=== PATIENT | male | born 1945 | race Caucasian/White ===

== ENCOUNTER 2019-09-10 19:40 | Inpatient (IN) | payer OTHER ==
[~2019-09-10] VITALS: Ht 170.2 cm; Wt 162.0 kg
--- NOTE | 2019-09-10 19:45 | NUR ---
Admission Note with Justification for Admission to [facility] Patient admitted to [facility] for protective oversight for emergency stabilization of acute psychiatric crisis. Pt admitted from: SNF Mode of arrival: EMS Accompanied By: EMS Precipitating behaviors that initiated intake and admission SI/HI, paranoia, Description of failure of out patient attempts at stabilization in previous setting list behavior and medication trials: medication adjustments, greo psychiatrist consult Behaviors and assessment findings upon admission: Calm and cooperative, Denies SH/HI and denies making any threats. VSS, UAL Plan: Admit for protective oversight for adjustment and stabilization of medications, behaviors and mood. Intense treatment regimen including groups, medication adjustments, therapy, consistent regimen for ADL's, self care, and sleep hygiene. Daily monitoring by Inpatient staff, Psychiatry, and Medical Physician.
--- NOTE | 2019-09-10 21:29 | PDOC ---
Exam Note: Pramod Note: Please also refer to the separate dictated note~for this date of service dictated separately. Discussed the patient with Nursing staff reviewed the chart.~Reviewed interim history and current functioning. Reviewed vital signs,~Labs/ Radiology~and current medications noted below. Continue current treatment with the changes noted in the dictated addendum note Current Medications: I have reviewed the current psychotropics carefully including drug interactions. Risk benefit ratio favors no change other than as noted in my dictated progress note. CHETAN VARGAS MD Sep 10, 2019 21:29
[2019-09-10] MEDS ORDERED: ARIP2TAB35 PO (22:33)
[2019-09-10] MEDS ORDERED: LISI40TA PO (22:33)
[2019-09-10] MEDS ORDERED: MEMA10TA PO (22:33)
[2019-09-10] MEDS ORDERED: METF500T16 PO (22:33)
[2019-09-10] MEDS ORDERED: CARV25TA2 PO (22:33)
[2019-09-10] MEDS ORDERED: MIRT7.5T8 PO (22:33)
[2019-09-10] MEDS ORDERED: POLY2500 PO (22:33)
[2019-09-10] MEDS ORDERED: ERGO2000 PO (22:33)
[2019-09-10] MEDS ORDERED: ZINC56CR2 TP (22:33)
[2019-09-10] MEDS ORDERED: SIMV80TA17 PO (22:33)
[2019-09-10] MEDS ORDERED: NYST15PO9 TP (22:33)
[2019-09-10] MEDS ORDERED: APIX5TAB3 PO (22:33)
[2019-09-10] MEDS ORDERED: NYSTATIN TOPICAL POWDER 15GM BOTTLE. TP PRN (22:45)
[2019-09-10] MEDS ORDERED: METHYL SALICYLATE/MENTHOL TOPICAL OINTMENT 57GM TUBE. TP PRN (22:45)
[2019-09-10] MEDS ORDERED: MAG HYDROX/AL HYDROX/SIMETH 30 ML ORAL.SUSP PO PRN (22:45)
[2019-09-10] MEDS ORDERED: MAGNESIUM HYDROXIDE 2,400 MG/30 ML ORAL.SUSP. PO PRN (22:45)
[2019-09-10] MEDS ORDERED: ACETAMINOPHEN 325 MG TABLET PO PRN (22:45)
[2019-09-11 05:04] VITALS: BP 155/78
[2019-09-11 05:58] VITALS: BP 133/76
--- NOTE | 2019-09-11 06:19 | EKG ---
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
[2019-09-11 07:14] LABS: BASO % 1 % (0-3); EOS # 0.1 x10^3/uL (0.0-0.7); EOS % 1 % (0-3); HEMATOCRIT 39.7 % (39.0-53.0); HEMOGLOBIN 12.8 g/dL (13.0-17.5); LYMPH # 1.1 x10^3/uL (1.0-4.8); LYMPH % 24 % (24-48); MEAN CORPUSCULAR HEMOGLOBIN 28 pg (25-35); MEAN CORPUSCULAR HGB CONC 32 g/dL (31-37); MEAN CORPUSCULAR VOLUME 88 fL (79-100); MONO # 0.4 x10^3/uL (0.0-1.1); MONO % 10 % (0-9); NEUT # 2.9 x10^3uL (1.8-7.7); NEUT % 64 % (31-73); PLATELET COUNT 132 x10^3/uL (140-400); RED BLOOD COUNT 4.53 x10^6/uL (4.30-5.70); RED CELL DISTRIBUTION WIDTH 15.4 % (11.5-14.5); WHITE BLOOD COUNT 4.5 x10^3/uL (4.0-11.0)
--- NOTE | 2019-09-11 07:30 | NUR ---
Patient has a aquafoam on his right forearm that is covering a skin tear. Patient removed bandage to show nurse, he called it his "scrape". Nurse put new dressing on skin tear. Skin tear was present on arrival from [facility].
[2019-09-11 07:32] LABS: ALBUMIN 3.5 g/dL (3.4-5.0); ALBUMIN/GLOBULIN RATIO 1.1 (1.0-1.7); CALCIUM 8.9 mg/dL (8.5-10.1); CREATININE 0.8 mg/dL (0.7-1.3); GFR 94.8; MAGNESIUM 1.8 mg/dL (1.8-2.4); POTASSIUM 3.9 mmol/L (3.5-5.1); TOTAL BILIRUBIN 0.4 mg/dL (0.2-1.0); TOTAL PROTEIN 6.6 g/dL (6.4-8.2)
[2019-09-11] MEDS ORDERED: POLYETHYLENE GLYCOL 3350 17 GM PACKET. PO PRN (09:00)
[2019-09-11] MEDS: CARVEDILOL 12.5 MG TABLET PO SCH ×2 (09:30→17:18)
[2019-09-11] MEDS: APIXABAN 5 MG TABLET. PO SCH ×2 (09:31→20:19)
[2019-09-11] MEDS: MEMANTINE 5 MG TABLET. PO SCH (09:31)
[2019-09-11] MEDS: LISINOPRIL 20 MG TABLET PO SCH (09:31)
[2019-09-11] MEDS: metFORMIN 500 MG TABLET PO SCH ×2 (09:31→17:18)
--- NOTE | 2019-09-11 09:43 | NUR ---
Juan M is a [place] fee for service. [place] authorization numbers are [id number] and [id number]. Updates are to be provided to Angle or Leidy at the [facility] on Mondays, Wednesdays, and Fridays.
--- NOTE | 2019-09-11 10:00 | NUR ---
Patient is medication compliant, he takes them whole with water. Patient was in day room participating in an activity group that MANGO Garzon was running. After the group this nurse had conversation with patient. He initially comes across more organized and coherent then he is. In further conversation he stated he had come from [place] and didn't seem to remember being at the [facility] in [place]. At this time patient oriented to name, and year. He is also aware that he is in a hospital but not where or why. He denied SI/HI when asked. He has been calm and cooperative this morning.
[2019-09-11] MEDS: ZINC OXIDE/COD LIVER OIL 40% TOPICAL OINTMENT 56GM TUBE. TP SCH ×2 (10:39→21:00)
--- NOTE | 2019-09-11 11:53 | NUR ---
Patient asked for his shoes, which had laces. When staff told patient he could not have the shoes because the laces could be a strangulation hazard he got upset. Staff offered to remove the laces and let him have his shoes but he did not want that. He wanted to know how everyone knew "what he was here for". Staff explained that we need to know each patients diagnosis and behavioral history to keep them safe. Patient is here for SI/HI. He then yelled "none of you can prove that, my family would never say that about me!" He was redirected to his room to calm down. Dr. Loi gregorio and order was received for MICHEAL goldstein. Patient was later heard on the telephone saying things like I love you so much, I miss you, I need you, etc. SUPPLY CHAIN VICE PRESIDENT asked him who he was talking to and he said it was his ex-. Patient then asked ex- to visit him, staff advised him she would need the passcode. He then stated "Well that won't happen, my daughter is the DPOA and she hates me". Patient had called his ex- and she does not know the code at this time. Patient was then observed appearing sad and crying in the hallway.
[2019-09-11] MEDS ORDERED: ARIPiprazole 2 MG TABLET PO SCH (12:00)
--- NOTE | 2019-09-11 12:30 | NUR ---
Patient given PRN zyprexa for agitation with his lunch medication. He asked nurse what medication was for, nurse told him it was a mood stabilizer that would help with his anxiety/depression. He took medications willingly, whole with water. Patient, nurse and table mate had conversation about patients profession prior to longterm. He is better with remote memory than current events.
--- NOTE | 2019-09-11 12:50 | NUR ---
PSYCHOSOCIAL ASSESSMENT ADMISSION DATE: 09/10/19 CONTACT INFORMATION: DPOA/Guardian Contact Name: GILLES Dunn Contact Address: [place] Contact Phone #: [phone] (H) or [phone] (W) ETHNIC ORIGIN: REASONS FOR ADMISSION: Homicidal Ideation, Suicidal ideation, and Suspicious/paranoid ADDITIONAL ADMISSION COMMENTS: Per pt. intake, pt. was SI/HI, jump off building, gun, or use his belt, wants to kill himself and daughter, paranoid people are stealing his stuff, and thinks pool is a game of life or . REASON FOR ADMISSION IN PATIENT/FAMILY'S OWN WORDS: Per pt., "My daughter made a complaint that I was unable to care for myself." "Which is untrue." "That is why I ended up here." Per pt. daughter, "They told me he was suicidal" and stating "ways he could do it". "He was going to use his belt, and they couldn't take it away from him." PATIENT/FAMILY EXPECTATIONS FOR ADMISSION: Per pt., "I hope I can get out." "I hope I can please people..." Pt. began to speak about wanting a room where he can stay and have the freedom to come and go when he wanted to. "I've already upset people." "They say I threatened to kill people." Pt. daughter stated, "I hope, maybe, he can get stabilized and be able to return to that place." She also hopes he will be "less paranoid" and "less depressed". LIVING SITUATION: Memory Care Contact Name: [facility] Contact Address: [place], [place] Contact Phone #: Contact Fax #: FAMILY RELATIONS: Marital Status: # of Marriages: 1 Pt. stated he has been for "three years" but his ex-, "Stephy", still visits him. He also stated "I'm two years past being able to have an erection, but we still climb into bed together." Pt. daughter clarified pt. has been for about "20 years", and she believes pt. ex- might call pt. but does not believe she visits. She also stated pt. ex- "may be causing him" to be "paranoid." # of Children: 2 Pt. has a daughter, Nicole, and a son, Jonathan. Pt. has two grandchildren. [facility] Family Support: Concerned and Cooperative Additional Comments r/t Family: Pt. daughter, Nicole, would like to be contacted for treatment team. SIGNIFICANT PSYCHIATRIC/MEDICAL HISTORY: Psychiatric/Treatment History: Per pt., "I've got a problem, but I can't think of it." Pt. stated, "Not that I can remember" when asked about previous psychiatric treatment. Pt. daughter did not know of any diagnoses but stated "maybe depression." She also shared pt. has not had any previous psychiatric treatment. Per pt. intake, pt. has Alzheimer's, Dementia, Adjustment Disorder R/t transitioning to memory unit, anxiety, and depression. [facility], "No [facility] diagnosis." Pertinent Family History: Per pt., "Not that I know of." Per pt. daughter, "No, his family is pretty stable." HISTORICAL DATA: Childhood Environment: "It was great." "I built a tree house and soap box derby." Pt. grew up with his mother, father, and one older brother, Edgardo, who has . Psychological Abuse: None Drug Abuse History last 12 months: No Comment: Pt. stated he smoked "marijuana" occasionally when he was younger and "drank for recreation" while in the . 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 service: Y 2 years, 7 months, and 21 days Religion background: "I'm not overly zoroastrian." "I believe in God." "I went to denominational every week as a child." "[employer] of [employer]" Sexual orientation: Heterosexual Educational Level: Pt. graduated from high school and went on to get a "Masters of Science in [employer] from [employer]." Pt. also shared the university sent him to training where he "learned how to fly." Past/Present Interests/Hobbies: "I like to build things and work on things." "I use to play golf." Pt. daughter shared pt. enjoyed golfing when he was "younger". Financial support/resources: Social Security Pt. also has money from a house he sold. Monthly income: $1700 from Social Security Person handling finances: Nicole DuboiskallilamontKaliaMarvin Do you have a history of legal problems: N Cultural considerations: No SOCIAL RELATIONSHIPS-CURRENT/PAST: Psychiatrist: Dr. Philippe PCP: Dr. Katz Counselor/Therapist: None [facility]: Current Support Group: None Decorator Consultant/Internal Security Manager: None Other relationships: None STRENGTHS & WEAKNESSES: Patient's strengths: Good verbal skills and Approachable Patient's weaknesses: Paranoid and SI/HI PRELIMINARY PLAN OF TREATMENT: Preliminary plan: Promote Coping Skill, No Suicidal/Homicidal Ideation, Medication Stabilization, and Monitor Med Effects DISCHARGE PLANNING: Discharge planning/disposition: Current Living Arrangement ADDITIONAL INFORMATION: Pt. was able to supply the majority of the information required for this assessment. Pt. daughter, Nicole, was contacted for verification and clarification of the information. Pt. stated, "They say I've threatened suicide." "I don't want to commit suicide." When asked if there was anythign else we need to know pt. daughter states, "He likes "chocolate" and "Diet Coke".
[2019-09-11 14:54] LABS: THYROID STIM HORMONE (TSH) 4.702 uIU/mL (0.358-3.740)
[2019-09-11 15:59] VITALS: BP 144/80
[2019-09-11 18:06] LABS: THYROXINE 5.2 ug/dL (4.5-12.0)
[2019-09-11] MEDS: ATORVASTATIN CALCIUM 20 MG TABLET PO SCH (20:19)
[2019-09-11] MEDS: MIRTAZAPINE 7.5 MG TABLET. PO SCH (20:19)
--- NOTE | 2019-09-11 21:24 | PDOC ---
Exam Note: Pramod Note: Please also refer to the separate dictated note~for this date of service dictated separately.~Patient seen individually. Discussed the patient with Nursing staff reviewed the chart.~Reviewed interim history and current functioning. Reviewed vital signs,~Labs/ Radiology~and current medications noted below. Continue current treatment with the changes noted in the dictated addendum note Assessment: Vital Signs/I&O: Vital Signs Date Time Temp Pulse Resp B/P (MAP) Pulse Ox O2 Delivery O2 Flow Rate FiO2 09/11/19 17:18 66 144/80 09/11/19 15:59 98.1 16 97 I & O 09/10/19 09/10/19 09/11/19 15:00 23:00 07:00 Intake Total 120 ml Balance 120 ml Labs: Laboratory Tests Test 09/11/19 06:34 09/11/19 08:05 09/11/19 19:13 White Blood Count 4.5 x10^3/uL (4.0-11.0) Red Blood Count 4.53 x10^6/uL (4.30-5.70) Hemoglobin 12.8 g/dL (13.0-17.5) L Hematocrit 39.7 % (39.0-53.0) Mean Corpuscular Volume 88 fL (79-100) Mean Corpuscular Hemoglobin 28 pg (25-35) Mean Corpuscular Hemoglobin Concent 32 g/dL (31-37) Red Cell Distribution Width 15.4 % (11.5-14.5) H Platelet Count 132 x10^3/uL (140-400) L Neutrophils (%) (Auto) 64 % (31-73) Lymphocytes (%) (Auto) 24 % (24-48) Monocytes (%) (Auto) 10 % (0-9) H Eosinophils (%) (Auto) 1 % (0-3) Basophils (%) (Auto) 1 % (0-3) Neutrophils # (Auto) 2.9 x10^3uL (1.8-7.7) Lymphocytes # (Auto) 1.1 x10^3/uL (1.0-4.8) Monocytes # (Auto) 0.4 x10^3/uL (0.0-1.1) Eosinophils # (Auto) 0.1 x10^3/uL (0.0-0.7) Basophils # (Auto) 0.0 x10^3/uL (0.0-0.2) Sodium Level 145 mmol/L (136-145) Potassium Level 3.9 mmol/L (3.5-5.1) Chloride Level 108 mmol/L (98-107) H Carbon Dioxide Level 29 mmol/L (21-32) Anion Gap 8 (6-14) Blood Urea Nitrogen 14 mg/dL (8-26) Creatinine 0.8 mg/dL (0.7-1.3) Estimated GFR (Cockcroft-Gault) 94.8 BUN/Creatinine Ratio 18 (6-20) Glucose Level 101 mg/dL (70-99) H Calcium Level 8.9 mg/dL (8.5-10.1) Magnesium Level 1.8 mg/dL (1.8-2.4) Iron Level 53 ug/dL (65-175) L Total Iron Binding Capacity 345 ug/dL (250-450) Iron Saturation 15 % (15-34) Total Bilirubin 0.4 mg/dL (0.2-1.0) Aspartate Amino Transferase (AST) 15 U/L (15-37) Alanine Aminotransferase (ALT) 19 U/L (16-63) Alkaline Phosphatase 99 U/L (46-116) Total Protein 6.6 g/dL (6.4-8.2) Albumin 3.5 g/dL (3.4-5.0) Albumin/Globulin Ratio 1.1 (1.0-1.7) Triglycerides Level 63 mg/dL (0-150) Cholesterol Level 102 mg/dL (0-200) LDL Cholesterol, Calculated 50 mg/dL (0-100) VLDL Cholesterol, Calculated 12 mg/dL (0-40) Non-HDL Cholesterol Calculated 62 mg/dL (0-129) HDL Cholesterol 40 mg/dL (40-60) Cholesterol/HDL Ratio 2.0 Vitamin B12 Level 416 pg/mL (247-911) 25-Hydroxy Vitamin D Total 74.4 ng/mL (30-100) Thyroid Stimulating Hormone (TSH) 4.702 uIU/mL (0.358-3.740) Thyroxine (T4) 5.2 ug/dL (4.5-12.0) Total Triiodothyronine (TT3) 93 ng/dL (71-180) Treponema pallidum Antibody Nonreactive (Nonreactive) Glucose (Fingerstick) 128 mg/dL (70-99) H 122 mg/dL (70-99) H Current Medications: Meds: Current Medications Medications (Trade) Dose Ordered Sig/Fatemeh Route PRN Reason Start Time Stop Time Status Last Admin Dose Admin Apixaban (Eliquis) 5 mg BID PO 09/11/19 09:00 09/11/19 20:19 Aripiprazole (Abilify) 1 mg NOON PO 09/11/19 12:00 09/11/19 12:35 Memantine (Namenda) 5 mg DAILY PO 09/11/19 09:00 09/11/19 09:31 Metformin HCl (Glucophage) 500 mg BIDWMEALS PO 09/11/19 08:00 09/11/19 17:18 Mirtazapine (Remeron) 7.5 mg HS PO 09/11/19 21:00 09/11/19 20:19 Carvedilol (Coreg) 12.5 mg BIDWMEALS PO 09/11/19 08:00 09/11/19 17:18 Lisinopril (Prinivil) 40 mg DAILY PO 09/11/19 09:00 09/11/19 09:31 Atorvastatin Calcium (Lipitor) 40 mg QHS PO 09/11/19 21:00 09/11/19 20:19 Olanzapine (ZyPREXA ZYDIS) 5 mg PRN Q2HR PRN PO agitation/psychosis 09/11/19 12:15 09/11/19 12:35 I have reviewed the current psychotropics carefully including drug interactions. Risk benefit ratio favors no change other than as noted in my dictated progress note. Diagnosis: Problems: (1) Anxiety disorder (2) Dementia, vascular, with delusions (3) Dementia, vascular, with depression (4) Dementia in Alzheimer's disease with delusions (5) Dementia in Alzheimer's disease with depression (6) Impulse control disorder CHETAN VARGAS MD Sep 11, 2019 21:24
--- NOTE | 2019-09-11 22:49 | NUR ---
This evening pt was in day room or his room he has been quiet and cooperative. He took HS meds whole without difficulty after a brief discussion. 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 Otherwise he was oriented. He denies SI/HI saying he was misunderstood. No behaviors tonight.
[2019-09-12 01:07] LABS: HEMOGLOBIN A1C 7.1 % (4.8-5.6)
--- NOTE | 2019-09-12 03:44 | CONS ---
DATE OF CONSULTATION: 09/11/2019 REASON FOR CONSULTATION: Medical management. HISTORY OF PRESENT ILLNESS: The patient is a 74-year-old male patient who was referred to this facility from the [facility] in [place] on account of suicidal and homicidal ideation, wants to jump off a building, use a gun or a ____ wants to kill his daughter because he is mad at her about placing him. He is paranoid, thinks people are stealing his stuff, thinks that ____ game, all this in a background of major neurocognitive disorder, Alzheimer, vascular with depression. Medically, he has multiple medical problems including hyperlipidemia, type 2 diabetes with diabetic retinopathy, atrial fibrillation, anemia, vitamin D deficiency, hypertension. 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 PAST SURGICAL HISTORY: Significant for tonsillectomy. ALLERGIES: He has no known drug allergies. MEDICATIONS: He is currently on following medications: He is on apixaban 5 mg twice a day, simvastatin 80 mg at bedtime, carvedilol 12.5 mg twice a day, lisinopril 40 mg daily, mirtazapine 7.5 mg at bedtime, aripiprazole for Abilify 1 mg at noon, Namenda 5 mg daily, metformin 500 mg twice a day with meals, nystatin powder applied topically twice a day, zinc oxide for desiccant 1 application topically twice a day, vitamin D2 50,000 units once a week on Fridays, polyethylene glycol 17 grams daily p.r.n. for constipation. FAMILY HISTORY: Noncontributory. SOCIAL HISTORY: He lives at [facility]. He has a son and daughter. He never smoked, but used to drink alcohol heavily. PHYSICAL EXAMINATION: GENERAL: When I saw him this afternoon, he was sitting comfortably in his chair, in no apparent respiratory distress, slightly pale, but no jaundice, cyanosis, no lymphadenopathy or thyromegaly. No jugular venous distention. No lower limb edema. VITAL SIGNS: His heart rate was 59, blood pressure was 133/76, temperature 98, respiratory rate was 18 and oxygen saturation was 99% on room air. HEAD, EYES, EARS, NOSE AND THROAT: Showed normocephalic, atraumatic. NECK: Supple. CARDIAC: Normal first and second heart sounds. No gallop, rub or murmur. CHEST: Clear to auscultation. No crepitation or rhonchi. ABDOMEN: Distended, soft, nontender. NEUROLOGIC: He seemed to be grossly intact. He ambulates without assistance or assistive devices. LABORATORY DATA: Showed a white cell count 4500, hemoglobin 13, hematocrit 39, MCV 88 and platelet count of 132,000. His chemistry showed a serum sodium 145, potassium 3.9, chloride 108, bicarbonate 29, anion gap of 8, BUN 14, creatinine 0.8, estimated GFR was 95 mL per minute. His glucose 101, calcium was 8.9, magnesium was 1.8. Serum iron 53, TIBC was 345 and iron saturation was 15%. His total bilirubin, AST, ALT, alkaline phosphatase were normal. Total protein 6.6, albumin 3.5. Serum triglycerides were 63, total cholesterol 102, LDL cholesterol was 50, VLDL was 12, HDL was 40 and the ratio was 2. TSH was slightly elevated at 4.702. IMPRESSION: In summary, this is a 74-year-old male patient who was admitted to this facility on account of suicidal and homicidal ideation, wants to jump off a building, use a gun or a ____, wants to kill his daughter because he is mad at her about placing him, he is paranoid, thinks people are stealing his stuff, thinks that ____ life or game, all this in a background of major neurocognitive disorder, Alzheimer, vascular, depression. Medically, he has multitude of medical problems including diabetes mellitus with diabetic retinopathy, hyperlipidemia, atrial fibrillation, hypertension, vitamin D deficiency; however, all in all, the patient seems to be medically stable. His vital signs are within normal limits. His lab works are also within normal limits. I will follow all his lab works that are still pending at the time of this dictation and make any necessary recommendation. Thank you, Dr. Monsivais for allowing me to participate in the care of this patient. LUCERO ISSA MD DR: JASSI/renetta JOB#: [id number] / [id number]
[2019-09-12] MEDS: LISINOPRIL 20 MG TABLET PO SCH (05:17)
--- NOTE | 2019-09-12 05:21 | NUR ---
AM BP was approx 170/100 0900 Lisinopril dose given. Pt up and active in room, sarcastic towards staff. Addendum: 09/12/19 at 1557 by ALINA LAZAR RN Spoke with Dr. Lester about patients morning high blood pressure reading. Dr. Lester does not wish to adjust medications at this time. We will continue to monitor the blood pressures and notify him if they trend up or continue to be high in the mornings.
[2019-09-12 06:11] VITALS: BP 170/124
--- NOTE | 2019-09-12 08:54 | TX PLAN ---
Interdisciplinary Tx Plan Admission Information Sep 10, 2019 at 19:40 Legal Status (on Admission): Voluntary, DPOA DPOA/Guardian Name: Nicole GILLES Pro Contact (H) or [phone] (W) Other Contact Name: [facility] Verified Code Status: Full Code Allergies: Coded Allergies: No Known Drug Allergies (Unverified , 09/10/19) Estimated Length of Stay: 10 Diagnoses Primary Diagnosis: Major Neurocognitive Disorder Vascular Alzheimers with Depression Reasons for Admission: Suicidal ideation, Homicidal Ideation, Suspicious/paranoid, Confusion/Disoriented Problem in Patient's Words: Per pt., "My daughter made a complaint that I was unable to care for myself." "Which is untrue." "That is why I ended up here." Per pt. daughter, "They told me he was suicidal" and stating "ways he could do it". "He was going to use his belt, and they couldn't take it away from him." Problems Active Problems: Per pt. intake, pt. was SI/HI, jump off building, gun, or use his belt, wants to kill himself and daughter, paranoid people are stealing his stuff, and thinks pool is a game of life or . Inactive Problems: Pt. is medication complaint and cooperative with cares. Pt Strengths/Limitations Ability for [place]: Poor Cognitive Functioning/Ability: Fair Communication Skills/Ability: Fair Financial Resources: Fair Insight/Judgement: Poor Intellectual Ability: Fair Physical Health: Fair Social Skills: Fair Stability in Family: Fair Verbal Skills: Good Discharge Criteria Discharge Criteria: No need for close observ., Adequate arrangements @DC, Improved behavior, Improved mood/thought Preliminary Discharge Plan Preliminary DC Plan: Current Living Arrange. Special Precautions Special Precautions: Suicide Risk Fall Risk: Low Initial D/C Plan Pt. will return to the [facility] at the [facility]. Identified Discharge Needs: Pt. will need follow up with Psychiatrist and PCP. Safety Plan Currently Utilized Resources Currently Utilized Resources/P: ID [facility] Dr. Philippe - Psychiatrist Dr. Katz - PCP Identified Problems/Hx/Goals Objectives/Short-Term Goals Short Term Goals: Medication Stabilization, Monitor Med Effects, No Suicidal/Viraj. ideation, Promote Coping Skill Short Term Goals in Patient's: Per pt., "I hope I can get out." "I hope I can please people..." Pt. began to speak about wanting a room where he can stay and have the freedom to come and go when he wanted to. 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 Education: Pt. graduated from high school and went on to get a "Masters of Science in Industrial Technology from [employer]." Pt. also shared the university sent him to training where he "learned how to fly." Community Follow-up Follow up with PCP and Psychiatrist Community Provider/Family Inpu: Pt. daughter stated, "I hope, maybe, he can get stabilized and be able to return to that place." She also hopes he will be "less paranoid" and "less depressed". Treatment Plan Explained Patient/Presales Senior Specialist had this treatment plan explained to him/her as indicated by the signature below and has been given the opportunity to ask questions and make suggestions: Date: Patient/Presales Senior Specialist Signature: Patient/Presales Senior Specialist Decline: No Additional Comments Pt. daughter, Nicole, would like to be contacted for treatment team. OSCAR KEITH Sep 12, 2019 08:54
[2019-09-12] MEDS: metFORMIN 500 MG TABLET PO SCH ×2 (09:25→17:43)
[2019-09-12] MEDS: APIXABAN 5 MG TABLET. PO SCH ×2 (09:25→21:15)
[2019-09-12] MEDS: CARVEDILOL 12.5 MG TABLET PO SCH ×2 (09:25→17:43)
[2019-09-12] MEDS: MEMANTINE 5 MG TABLET. PO SCH ×2 (09:26→21:15)
[2019-09-12] MEDS: ZINC OXIDE/COD LIVER OIL 40% TOPICAL OINTMENT 56GM TUBE. TP SCH ×2 (09:26→21:15)
--- NOTE | 2019-09-12 11:06 | NUR ---
BETHEL contacted pt. daughter, Nicole, for treatment team. BETHEL contacted Angle, Nurse at the [facility], to give her an update on pt. progress. No discharge date has been set at this time.
--- NOTE | 2019-09-12 12:11 | NUR ---
Patient has been joking and cooperative with staff. He is medication compliant. Patient denies SI when asked, stating that was just a joke. Patient has been withdrawn to his room most of the day.
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
--- NOTE | 2019-09-12 15:53 | NUR ---
Patient is less withdrawn and was in day room during a group this afternoon. He has been talking to some peers, and was overheard saying that he has "been here for 3 months" to one of his peers this afternoon. He remains calm and cooperative at this time.
[2019-09-12 16:25] VITALS: BP 156/85
[2019-09-12] MEDS: MIRTAZAPINE 7.5 MG TABLET. PO SCH (21:15)
[2019-09-12] MEDS: ATORVASTATIN CALCIUM 20 MG TABLET PO SCH (21:15)
[2019-09-12] MEDS: QUEtiapine 25 MG TABLET. PO SCH (21:15)
--- NOTE | 2019-09-12 21:22 | PDOC ---
Exam Note: Pramod Note: Please also refer to the separate dictated note~for this date of service dictated separately.~Patient seen individually. Discussed the patient with Nursing staff reviewed the chart.~Reviewed interim history and current functioning. Reviewed vital signs,~Labs/ Radiology~and current medications noted below. Continue current treatment with the changes noted in the dictated addendum note Assessment: Vital Signs/I&O: Vital Signs Date Time Temp Pulse Resp B/P (MAP) Pulse Ox O2 Delivery O2 Flow Rate FiO2 09/12/19 17:43 60 156/85 09/12/19 16:25 98.1 16 96 09/12/19 06:11 Room Air I & O 09/11/19 09/11/19 09/12/19 15:00 23:00 07:00 Intake Total 360 ml 480 ml Balance 360 ml 480 ml Labs: Laboratory Tests Test 09/12/19 07:50 09/12/19 11:39 09/12/19 19:20 Glucose (Fingerstick) 105 mg/dL (70-99) H 188 mg/dL (70-99) H 181 mg/dL (70-99) H Current Medications: Meds: Current Medications Medications (Trade) Dose Ordered Sig/Fatemeh Route PRN Reason Start Time Stop Time Status Last Admin Dose Admin Memantine (Namenda) 5 mg BID PO 09/12/19 21:00 09/12/19 21:15 Quetiapine Fumarate (SEROquel) 25 mg QHS PO 09/12/19 21:00 09/12/19 21:15 I have reviewed the current psychotropics carefully including drug interactions. Risk benefit ratio favors no change other than as noted in my dictated progress note. Diagnosis: Problems: (1) Anxiety disorder (2) Dementia, vascular, with delusions (3) Dementia, vascular, with depression (4) Dementia in Alzheimer's disease with delusions (5) Dementia in Alzheimer's disease with depression (6) Impulse control disorder (7) Major neurocognitive disorder CHETAN VARGAS MD Sep 12, 2019 21:22
--- NOTE | 2019-09-12 23:59 | NUR ---
Nursing Note The patient was located in the day room for his assessment and medication pass. The patient was pleasant during interactions with this nurse. The patient took his medications whole. The patient did display some short term memory issues. The patient repetitively asked about his belongings even after this nurse informed him that they were either in his locker or in the safe. The patient is currently sleeping in his room.
[2019-09-13 06:59] VITALS: BP 150/73
[2019-09-13] MEDS: CARVEDILOL 12.5 MG TABLET PO SCH ×2 (08:36→17:30)
[2019-09-13] MEDS: APIXABAN 5 MG TABLET. PO SCH ×2 (08:36→21:11)
[2019-09-13] MEDS: metFORMIN 500 MG TABLET PO SCH ×2 (08:36→17:29)
[2019-09-13] MEDS: SERTRALINE 25 MG TABLET. PO SCH (08:36)
[2019-09-13] MEDS: MEMANTINE 5 MG TABLET. PO SCH ×2 (08:37→21:10)
[2019-09-13] MEDS: LISINOPRIL 20 MG TABLET PO SCH (08:37)
[2019-09-13] MEDS: ZINC OXIDE/COD LIVER OIL 40% TOPICAL OINTMENT 56GM TUBE. TP SCH ×2 (08:38→21:11)
[2019-09-13] MEDS ORDERED: CHOLECALCIFEROL (VITAMIN D3) 50,000 UNIT CAPSULE PO SCH (09:00)
--- NOTE | 2019-09-13 10:30 | NUR ---
Pt located in the dining room for medication administration. Pt calm, pleasant and cooperative. A/O to name, . When asked where he was, pt stated "in senior care" and laughed. Compliant with whole medications. Pt participated in morning group.
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
[2019-09-13 15:41] VITALS: BP 134/82
--- NOTE | 2019-09-13 20:05 | PN ---
DATE: 09/12/2019 PSYCHIATRIC PROGRESS NOTE This late entry September 11, covers elements not covered in my initial note. SUBJECTIVE: I met with the patient at length in the evening and staffed at a treatment team meeting with the entire team in the morning and the patient's daughter Nicole attended this lengthy conference. We reviewed the patient's history, diagnosis, progress. The patient is sleeping average six and a half hours. Appetite 75%. Daughter described how his memory has been slowly slipping for the last several years. He has been upset that he has been at the facility blames his daughter for this. Crying on the telephone with his ex-, remains depressed, feels daughter hates him, did attend 2 groups per Adeyoh. 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 REVIEW OF SYSTEMS: No CV, , pulmonary, eye system symptoms on review. MENTAL STATUS EXAM: Oriented to himself and situation. Speech has some latency, coherent. Abstraction fair, computation impaired, language function intact, attention span short. Short term memory is impaired. No suicidal or homicidal ideation. LABORATORY DATA: Reviewed. IMPRESSION: Major depressive disorder major neurocognitive disorder, early Alzheimer, vascular with depression, impulse control disorder, and anxiety disorder, unspecified. PLAN: Change Abilify 1 mg a day to Seroquel 25 mg at bedtime to help with his mood, anxiety symptoms. Increase Namenda from 5 mg daily to 5 mg twice a day. Start Zoloft 25 mg a day for 3 days, then 50 mg a day for mood, anxiety symptoms. Continue Remeron 7.5 mg at bedtime, Zyprexa p.r.n. Rest will adjust gradually depending on his progress. MAN Winston VARGAS MD DR: ROSALIND/renetta JOB#: [id number] / [id number]
[2019-09-13] MEDS: QUEtiapine 25 MG TABLET. PO SCH (21:10)
[2019-09-13] MEDS: MIRTAZAPINE 7.5 MG TABLET. PO SCH (21:10)
[2019-09-13] MEDS: ATORVASTATIN CALCIUM 20 MG TABLET PO SCH (21:11)
--- NOTE | 2019-09-13 21:24 | PDOC ---
Exam Note: Pramod Note: Please also refer to the separate dictated note~for this date of service dictated separately.~Patient seen individually. Discussed the patient with Nursing staff reviewed the chart.~Reviewed interim history and current functioning. Reviewed vital signs,~Labs/ Radiology~and current medications noted below. Continue current treatment with the changes noted in the dictated addendum note Assessment: Vital Signs/I&O: Vital Signs Date Time Temp Pulse Resp B/P (MAP) Pulse Ox O2 Delivery O2 Flow Rate FiO2 09/13/19 17:30 64 134/82 09/13/19 15:41 97.5 18 96 09/12/19 06:11 Room Air I & O 09/12/19 09/12/19 09/13/19 15:00 23:00 07:00 Intake Total 480 ml 240 ml 240 ml Balance 480 ml 240 ml 240 ml Labs: Laboratory Tests Test 09/13/19 07:23 09/13/19 11:10 Glucose (Fingerstick) 108 mg/dL (70-99) H 114 mg/dL (70-99) H Current Medications: Meds: Current Medications Medications (Trade) Dose Ordered Sig/Fatemeh Route PRN Reason Start Time Stop Time Status Last Admin Dose Admin Vitamin D (Vitamin D3) 50,000 unit WEEKLY PO 09/13/19 09:00 09/13/19 08:37 Sertraline HCl (Zoloft) 25 mg DAILY PO 09/13/19 09:00 09/15/19 11:00 09/13/19 08:36 Zinc Oxide (Desitin Diaper Rash 40%) 1 layne BID TP 09/13/19 15:34 09/13/19 21:11 I have reviewed the current psychotropics carefully including drug interactions. Risk benefit ratio favors no change other than as noted in my dictated progress note. Diagnosis: Problems: (1) Major neurocognitive disorder (2) Anxiety disorder (3) Dementia, vascular, with delusions (4) Dementia, vascular, with depression (5) Dementia in Alzheimer's disease with delusions (6) Dementia in Alzheimer's disease with depression (7) Impulse control disorder CHETAN VARGAS MD Sep 13, 2019 21:24
--- NOTE | 2019-09-14 00:26 | NUR ---
Nursing Note The patient was located in his room for his assessment and medication pass. The patient was compliant and appropriate during his assessment and medication pass. The patient took his medication whole. The patient later in the night became agitated and irritable. The patient is currently awake in his room.
[2019-09-14 06:35] VITALS: BP 129/54
[2019-09-14] MEDS: APIXABAN 5 MG TABLET. PO SCH ×2 (08:24→20:00)
[2019-09-14] MEDS: SERTRALINE 25 MG TABLET. PO SCH (08:24)
[2019-09-14] MEDS: MEMANTINE 5 MG TABLET. PO SCH ×2 (08:24→20:00)
[2019-09-14] MEDS: metFORMIN 500 MG TABLET PO SCH ×2 (08:24→17:13)
[2019-09-14 08:26] VITALS: BP 148/80
[2019-09-14] MEDS: CARVEDILOL 12.5 MG TABLET PO SCH ×2 (08:27→17:13)
[2019-09-14] MEDS: LISINOPRIL 20 MG TABLET PO SCH (08:27)
[2019-09-14] MEDS: ZINC OXIDE/COD LIVER OIL 40% TOPICAL OINTMENT 56GM TUBE. TP SCH ×2 (09:00→21:00)
--- NOTE | 2019-09-14 10:47 | NUR ---
Pt is calm, cooperative, and compliant. He denies SI/HI. Pt believes the date is Jul 2021. He verbally contracted for safety. He is compliant with is medication and assessment.
--- NOTE | 2019-09-14 13:32 | NUR ---
Pt is wandering the unit, asking to get in his closet, asking about his facility and appears confused as he cannot recall brief conversations. PRN angelita machuca given.
[2019-09-14 15:56] VITALS: BP 159/78
[2019-09-14] MEDS: MIRTAZAPINE 7.5 MG TABLET. PO SCH (20:00)
[2019-09-14] MEDS: QUEtiapine 25 MG TABLET. PO SCH (20:00)
[2019-09-14] MEDS: ATORVASTATIN CALCIUM 20 MG TABLET PO SCH (20:00)
--- NOTE | 2019-09-14 21:17 | PDOC ---
Exam Note: Pramod Note: Please also refer to the separate dictated note~for this date of service dictated separately.~Patient seen individually. Discussed the patient with Nursing staff reviewed the chart.~Reviewed interim history and current functioning. Reviewed vital signs,~Labs/ Radiology~and current medications noted below. Continue current treatment with the changes noted in the dictated addendum note Assessment: Vital Signs/I&O: Vital Signs Date Time Temp Pulse Resp B/P (MAP) Pulse Ox O2 Delivery O2 Flow Rate FiO2 09/14/19 17:13 75 159/78 09/14/19 15:56 97.2 18 98 09/12/19 06:11 Room Air I & O 09/13/19 09/13/19 09/14/19 15:00 23:00 07:00 Intake Total 600 ml 480 ml 240 ml Balance 600 ml 480 ml 240 ml Labs: Laboratory Tests Test 09/14/19 07:49 Glucose (Fingerstick) 90 mg/dL (70-99) Current Medications: I have reviewed the current psychotropics carefully including drug interactions. Risk benefit ratio favors no change other than as noted in my dictated progress note. Diagnosis: Problems: (1) Major neurocognitive disorder (2) Anxiety disorder (3) Dementia, vascular, with delusions (4) Dementia, vascular, with depression (5) Dementia in Alzheimer's disease with delusions (6) Dementia in Alzheimer's disease with depression (7) Impulse control disorder CHETAN VARGAS MD Sep 14, 2019 21:17
[2019-09-14] MEDS ORDERED: traZODone 50 MG TABLET. PO PRN (23:45)
--- NOTE | 2019-09-15 04:25 | NUR ---
Nursing Note The patient was located in his room for his medication and assessment. The patient took his medication whole and was appropriate during interactions with this nurse. The patient did display some disorientation related to time, location and situation. The patient received PRN Trazodone per PRN order@ . The patient is currently sleeping in his room.
[2019-09-15 06:24] VITALS: BP 172/80
[2019-09-15] MEDS: metFORMIN 500 MG TABLET PO SCH ×2 (08:14→17:07)
[2019-09-15] MEDS: SERTRALINE 25 MG TABLET. PO SCH (08:14)
[2019-09-15] MEDS: MEMANTINE 5 MG TABLET. PO SCH ×2 (08:14→20:06)
[2019-09-15] MEDS: CARVEDILOL 12.5 MG TABLET PO SCH ×2 (08:14→17:07)
[2019-09-15] MEDS: APIXABAN 5 MG TABLET. PO SCH ×2 (08:14→20:07)
[2019-09-15] MEDS: LISINOPRIL 20 MG TABLET PO SCH (08:14)
[2019-09-15] MEDS: ZINC OXIDE/COD LIVER OIL 40% TOPICAL OINTMENT 56GM TUBE. TP SCH ×2 (08:15→20:06)
--- NOTE | 2019-09-15 09:31 | NUR ---
Pt is calm, cooperative, and compliant. He denies SI/HI. Pt is unsure of the date. He verbally contracted for safety. He is compliant with is medication and assessment.
[2019-09-15 15:31] VITALS: BP 104/60
[2019-09-15] MEDS: ATORVASTATIN CALCIUM 20 MG TABLET PO SCH (20:06)
[2019-09-15] MEDS: QUEtiapine 25 MG TABLET. PO SCH (20:07)
[2019-09-15] MEDS: MIRTAZAPINE 7.5 MG TABLET. PO SCH (20:07)
--- NOTE | 2019-09-15 21:35 | NUR ---
Patient is in his room on assumption. He stayed mostly withdrawn to his room or wandering the hallway, but did come out to the day room a few times. He was calm, cooperative and compliant with medications and assessments. No agitation. Denies any pain or discomfort. Denies SI.
--- NOTE | 2019-09-15 22:05 | PN ---
DATE: 09/13/2019 PSYCHIATRIC PROGRESS NOTE This late entry 09/13/2019 covers the elements not covered in my initial note. SUBJECTIVE: I met with the patient in the evening of 09/13/2019. Per CALEB Garza, the patient slept 5-1/4 hours previous night. The patient remains somewhat withdrawn, anxious with some short-term memory deficits, but reasonably oriented. REVIEW OF SYSTEMS: No CV, , pulmonary, eye system symptoms on review. MENTAL STATUS EXAM: Reasonably oriented. Speech has some latency, coherent, met with him in his room. Abstraction fair, computation impaired, language function intact. Mood and affect somewhat withdrawn. LABORATORY DATA: Reviewed. IMPRESSION: Major neurocognitive disorder, early Alzheimer, vascular with depression. Rest unchanged. PLAN: Continue psychotropics from initial note. Gradually increase the Namenda, maintain Remeron, Zyprexa p.r.n., Zoloft is being increased to 50 mg a day on the and Seroquel 25 mg at bedtime. Rest unchanged for now. MAN Winston VARGAS MD DR: ROSALIND/renetta JOB#: [id number] / [id number]
--- NOTE | 2019-09-15 22:38 | PDOC ---
Exam Note: Pramod Note: Please also refer to the separate dictated note~for this date of service dictated separately.~Patient seen individually. Discussed the patient with Nursing staff reviewed the chart.~Reviewed interim history and current functioning. Reviewed vital signs,~Labs/ Radiology~and current medications noted below. Continue current treatment with the changes noted in the dictated addendum note Assessment: Vital Signs/I&O: Vital Signs Date Time Temp Pulse Resp B/P (MAP) Pulse Ox O2 Delivery O2 Flow Rate FiO2 09/15/19 15:31 97.8 58 18 104/60 (75) 98 09/12/19 06:11 Room Air I & O 09/14/19 09/14/19 09/15/19 15:00 23:00 07:00 Intake Total 840 ml 480 ml Balance 840 ml 480 ml Labs: Laboratory Tests Test 09/15/19 07:29 Glucose (Fingerstick) 141 mg/dL (70-99) H Current Medications: Meds: Current Medications Medications (Trade) Dose Ordered Sig/Fatemeh Route PRN Reason Start Time Stop Time Status Last Admin Dose Admin Mirtazapine (Remeron) 15 mg HS PO 09/15/19 21:00 09/15/19 20:07 Trazodone HCl (Desyrel) 50 mg PRN QHS PRN PO may repeat x1 09/14/19 23:45 09/15/19 00:11 I have reviewed the current psychotropics carefully including drug interactions. Risk benefit ratio favors no change other than as noted in my dictated progress note. Diagnosis: Problems: (1) Major neurocognitive disorder (2) Anxiety disorder (3) Dementia, vascular, with delusions (4) Dementia, vascular, with depression (5) Dementia in Alzheimer's disease with delusions (6) Dementia in Alzheimer's disease with depression (7) Impulse control disorder CHETAN VARGAS MD Sep 15, 2019 22:38
[2019-09-16 06:22] VITALS: BP 155/64
[2019-09-16] MEDS: APIXABAN 5 MG TABLET. PO SCH ×2 (09:00→20:59)
[2019-09-16] MEDS: metFORMIN 500 MG TABLET PO SCH ×2 (09:00→17:05)
[2019-09-16] MEDS: CARVEDILOL 12.5 MG TABLET PO SCH ×2 (09:00→17:05)
[2019-09-16] MEDS: MEMANTINE 5 MG TABLET. PO SCH (09:01)
[2019-09-16] MEDS: LISINOPRIL 20 MG TABLET PO SCH (09:01)
[2019-09-16] MEDS: SERTRALINE 50 MG TABLET. PO SCH (09:02)
[2019-09-16] MEDS: ZINC OXIDE/COD LIVER OIL 40% TOPICAL OINTMENT 56GM TUBE. TP SCH ×2 (09:02→21:00)
[2019-09-16 09:48] LABS: ALBUMIN 3.5 g/dL (3.4-5.0); ALBUMIN/GLOBULIN RATIO 1.1 (1.0-1.7); CREATININE 0.9 mg/dL (0.7-1.3); GFR 82.7; POTASSIUM 4.3 mmol/L (3.5-5.1); TOTAL BILIRUBIN 0.4 mg/dL (0.2-1.0); TOTAL PROTEIN 6.6 g/dL (6.4-8.2)
[2019-09-16 10:15] LABS: BASO # 0.1 x10^3/uL (0.0-0.2); BASO % 1 % (0-3); EOS # 0.1 x10^3/uL (0.0-0.7); EOS % 1 % (0-3); HEMATOCRIT 38.1 % (39.0-53.0); HEMOGLOBIN 12.3 g/dL (13.0-17.5); LYMPH % 16 % (24-48); MEAN CORPUSCULAR HEMOGLOBIN 29 pg (25-35); MEAN CORPUSCULAR HGB CONC 32 g/dL (31-37); MEAN CORPUSCULAR VOLUME 88 fL (79-100); MONO # 0.5 x10^3/uL (0.0-1.1); MONO % 8 % (0-9); NEUT # 4.5 x10^3uL (1.8-7.7); NEUT % 74 % (31-73); PLATELET COUNT 136 x10^3/uL (140-400); RED BLOOD COUNT 4.34 x10^6/uL (4.30-5.70); RED CELL DISTRIBUTION WIDTH 15.5 % (11.5-14.5); WHITE BLOOD COUNT 6.1 x10^3/uL (4.0-11.0)
--- NOTE | 2019-09-16 10:49 | NUR ---
Pt is unsure of the date. Pt is calm, cooperative, and compliant. He denies SI/HI. He verbally contracted for safety. He is compliant with is medication and assessment.
--- NOTE | 2019-09-16 11:59 | NUR ---
BETHEL updated Angle at the [facility], regarding pt. progress.
[2019-09-16 16:14] VITALS: BP 139/64
--- NOTE | 2019-09-16 16:29 | PN ---
DATE: 09/14/2019 PSYCHIATRIC PROGRESS NOTE This late entry 09/14/2019 covers elements not covered in my initial note. SUBJECTIVE: I met with the patient evening of 09/14/2019. Per CALEB Montenegro, the patient slept 2-1/2 hours previous night. He was irritable previous night. Short term memory is very poor, per nursing report. He wakes up at 3:00 a.m. and wanted his belongings, confused where he was. Compliant with care, takes medications whole. REVIEW OF SYSTEMS: No CV, , pulmonary, eye, ENT system symptoms on review. MENTAL STATUS EXAMINATION: I met with him in his room. He is oriented to himself and situation. Speech has some latency, coherent. Abstraction fair, computation impaired, language function intact. Mood and affect withdrawn at times. LABORATORY DATA: Reviewed. IMPRESSION: Unchanged from initial note. PLAN: No change from initial note. CHETAN VARGAS MD DR: ROSALIND/renetta JOB#: [id number] / [id number]
--- NOTE | 2019-09-16 20:46 | PN ---
DATE: 09/15/2019 PSYCHIATRIC PROGRESS NOTE. This late entry of 09/15/2019 covers the elements not covered in my initial note. SUBJECTIVE: I met with the patient in the evening of 09/15/2019. Per CALEB Bond, the patient slept 3-1/2 hours previous night. He has been preoccupied with securing his belongings, become somewhat obsessive, paranoid. REVIEW OF SYSTEMS: No CV, , pulmonary, eye, ENT system symptoms on review. I met with him in his room. MENTAL STATUS EXAM: Oriented to himself and situation. Speech has some latency, coherent. Abstraction fair, computation impaired, language function intact. Short term memory is impaired. No suicidal or homicidal ideation. LABORATORY DATA: Reviewed. IMPRESSION: Major neurocognitive disorder, early Alzheimer, vascular with depression. Rest unchanged. No active suicidal ideation. PLAN: Continue current psychotropics. Increase trazodone from 50 mg at bedtime p.r.n., may repeat x 1 for insomnia. Continue Namenda, Remeron, Zyprexa as p.r.n., Zoloft increasing to 50 mg a day and Seroquel 25 mg at bedtime. CHETAN VARGAS MD DR: ROSALIND/renetta JOB#: [id number] / [id number]
[2019-09-16] MEDS: ATORVASTATIN CALCIUM 20 MG TABLET PO SCH (20:59)
[2019-09-16] MEDS: MIRTAZAPINE 7.5 MG TABLET. PO SCH (20:59)
[2019-09-16] MEDS: QUEtiapine 25 MG TABLET. PO SCH (20:59)
[2019-09-16] MEDS: MEMANTINE 10 MG TABLET. PO SCH (21:02)
--- NOTE | 2019-09-16 21:45 | PDOC ---
Exam Note: Pramod Note: Please also refer to the separate dictated note~for this date of service dictated separately.~Patient seen individually. Discussed the patient with Nursing staff reviewed the chart.~Reviewed interim history and current functioning. Reviewed vital signs,~Labs/ Radiology~and current medications noted below. Continue current treatment with the changes noted in the dictated addendum note Assessment: Vital Signs/I&O: Vital Signs Date Time Temp Pulse Resp B/P (MAP) Pulse Ox O2 Delivery O2 Flow Rate FiO2 09/16/19 17:05 64 139/64 09/16/19 16:14 97.5 16 96 09/12/19 06:11 Room Air I & O 09/15/19 09/15/19 09/16/19 15:00 23:00 07:00 Intake Total 480 ml 460 ml 240 ml Balance 480 ml 460 ml 240 ml Labs: Laboratory Tests Test 09/16/19 07:28 09/16/19 09:17 Glucose (Fingerstick) 106 mg/dL (70-99) H White Blood Count 6.1 x10^3/uL (4.0-11.0) Red Blood Count 4.34 x10^6/uL (4.30-5.70) Hemoglobin 12.3 g/dL (13.0-17.5) L Hematocrit 38.1 % (39.0-53.0) L Mean Corpuscular Volume 88 fL (79-100) Mean Corpuscular Hemoglobin 29 pg (25-35) Mean Corpuscular Hemoglobin Concent 32 g/dL (31-37) Red Cell Distribution Width 15.5 % (11.5-14.5) H Platelet Count 136 x10^3/uL (140-400) L Neutrophils (%) (Auto) 74 % (31-73) H Lymphocytes (%) (Auto) 16 % (24-48) L Monocytes (%) (Auto) 8 % (0-9) Eosinophils (%) (Auto) 1 % (0-3) Basophils (%) (Auto) 1 % (0-3) Neutrophils # (Auto) 4.5 x10^3uL (1.8-7.7) Lymphocytes # (Auto) 1.0 x10^3/uL (1.0-4.8) Monocytes # (Auto) 0.5 x10^3/uL (0.0-1.1) Eosinophils # (Auto) 0.1 x10^3/uL (0.0-0.7) Basophils # (Auto) 0.1 x10^3/uL (0.0-0.2) Sodium Level 144 mmol/L (136-145) Potassium Level 4.3 mmol/L (3.5-5.1) Chloride Level 107 mmol/L (98-107) Carbon Dioxide Level 30 mmol/L (21-32) Anion Gap 7 (6-14) Blood Urea Nitrogen 14 mg/dL (8-26) Creatinine 0.9 mg/dL (0.7-1.3) Estimated GFR (Cockcroft-Gault) 82.7 BUN/Creatinine Ratio 16 (6-20) Glucose Level 181 mg/dL (70-99) H Calcium Level 9.0 mg/dL (8.5-10.1) Total Bilirubin 0.4 mg/dL (0.2-1.0) Aspartate Amino Transferase (AST) 16 U/L (15-37) Alanine Aminotransferase (ALT) 19 U/L (16-63) Alkaline Phosphatase 103 U/L (46-116) Total Protein 6.6 g/dL (6.4-8.2) Albumin 3.5 g/dL (3.4-5.0) Albumin/Globulin Ratio 1.1 (1.0-1.7) Current Medications: Meds: Current Medications Medications (Trade) Dose Ordered Sig/Fatemeh Route PRN Reason Start Time Stop Time Status Last Admin Dose Admin Sertraline HCl (Zoloft) 50 mg DAILY PO 09/16/19 09:00 09/16/19 09:02 Memantine (Namenda) 10 mg BID PO 09/16/19 21:00 09/16/19 21:02 I have reviewed the current psychotropics carefully including drug interactions. Risk benefit ratio favors no change other than as noted in my dictated progress note. Diagnosis: Problems: (1) Major neurocognitive disorder (2) Anxiety disorder (3) Dementia, vascular, with delusions (4) Dementia, vascular, with depression (5) Dementia in Alzheimer's disease with delusions (6) Dementia in Alzheimer's disease with depression (7) Impulse control disorder CHETAN VARGAS MD Sep 16, 2019 21:45
--- NOTE | 2019-09-16 23:34 | NUR ---
Nursing Note Pt confused at shift change wanders around demanding that we get him his Tshirts, I asked him what shirt exactly he was looking for and he stated "A t-shirt, are you retarded, don't you know what a god damned T-shirt is?? Romulo Ellison what a dumb ass!" I told him that his clothing may be in the laundry, and he just shook his head and wandered off angrily. Later, patient was med compliant and cooperative with assessment.
[2019-09-17 06:25] VITALS: BP 102/63
[2019-09-17 09:38] VITALS: BP 120/82
[2019-09-17] MEDS: CARVEDILOL 12.5 MG TABLET PO SCH (09:39)
[2019-09-17] MEDS: MEMANTINE 10 MG TABLET. PO SCH (09:39)
[2019-09-17 09:40] VITALS: BP 120/82
[2019-09-17] MEDS: LISINOPRIL 20 MG TABLET PO SCH (09:40)
[2019-09-17] MEDS: metFORMIN 500 MG TABLET PO SCH (09:40)
[2019-09-17] MEDS: SERTRALINE 50 MG TABLET. PO SCH (09:40)
[2019-09-17] MEDS: ZINC OXIDE/COD LIVER OIL 40% TOPICAL OINTMENT 56GM TUBE. TP SCH (09:40)
[2019-09-17] MEDS: APIXABAN 5 MG TABLET. PO SCH (09:40)
[2019-09-17 13:13] LABS: CALCIUM 8.9 mg/dL (8.5-10.1); CREATININE 1.3 mg/dL (0.7-1.3); GFR 54.1; POTASSIUM 3.7 mmol/L (3.5-5.1)
[2019-09-17 13:18] LABS: BASO % 0 % (0-3); EOS % 0 % (0-3); HEMATOCRIT 37.9 % (39.0-53.0); HEMOGLOBIN 12.3 g/dL (13.0-17.5); LYMPH # 0.3 x10^3/uL (1.0-4.8); LYMPH % 2 % (24-48); MEAN CORPUSCULAR HEMOGLOBIN 29 pg (25-35); MEAN CORPUSCULAR HGB CONC 32 g/dL (31-37); MEAN CORPUSCULAR VOLUME 89 fL (79-100); MONO # 0.5 x10^3/uL (0.0-1.1); MONO % 4 % (0-9); NEUT # 12.4 x10^3uL (1.8-7.7); NEUT % 94 % (31-73); PLATELET COUNT 114 x10^3/uL (140-400); RED BLOOD COUNT 4.27 x10^6/uL (4.30-5.70); RED CELL DISTRIBUTION WIDTH 15.4 % (11.5-14.5); WHITE BLOOD COUNT 13.3 x10^3/uL (4.0-11.0)
[2019-09-17 13:19] LABS: ALBUMIN 3.4 g/dL (3.4-5.0); ALBUMIN/GLOBULIN RATIO 1.1 (1.0-1.7); TOTAL BILIRUBIN 0.9 mg/dL (0.2-1.0); TOTAL PROTEIN 6.6 g/dL (6.4-8.2)
[2019-09-17] MEDS ORDERED: ACET-1874 PO (13:32)
[2019-09-17] MEDS ORDERED: MAG-95 PO (13:48)
[2019-09-17] MEDS ORDERED: MIRT15TA3 PO (13:50)
[2019-09-17] MEDS ORDERED: MAGN24003 PO (13:50)
[2019-09-17] MEDS ORDERED: METH57CR17 TP (13:51)
[2019-09-17] MEDS ORDERED: OLAN5TAB9 PO (13:52)
[2019-09-17] MEDS ORDERED: QUET25TA PO ×2 (13:53→13:54)
[2019-09-17] MEDS ORDERED: ZINC56CR2 TP (13:55)
[2019-09-17] MEDS ORDERED: SERT50TA PO (13:55)
--- NOTE | 2019-09-17 13:55 | RAD ---
EXAM: Chest, single view. HISTORY: Fever. COMPARISON: None. FINDINGS: A frontal view of the chest is obtained. There is diffuse central predominant interstitial infiltrate with suspected small pleural effusions. The heart is normal in size. There is no pneumothorax. IMPRESSION: Diffuse central predominant interstitial infiltrate with suspected small pleural effusions. Electronically signed by: Letty Malloy MD (09/17/2019 1:52 PM) [id number]
[2019-09-17] MEDS ORDERED: TRAZ-120 PO (13:57)
[2019-09-17] MEDS ORDERED: ATOR40TA59 PO (13:59)
[2019-09-17] MEDS ORDERED: CHOL3000 PO (14:02)
[2019-09-17] MEDS ORDERED: MEMA10TA PO (14:06)
[2019-09-17 14:14] LABS: % BANDS 12 % (0-9); % LYMPHS 1 % (24-48); % MONOS 5 % (0-10); % SEGS 82 % (35-66)
[2019-09-17 14:15] LABS: ANISOCYTOSIS SLIGHT; PLT ESTIMATE DECREASED (ADEQUATE)
[2019-09-17 14:16] LABS: OVALOCYTES FEW; POIKILOCYTOSIS SLIGHT; POLYCHROMASIA SLIGHT; TEAR DROP CELLS OCC
--- NOTE | 2019-09-17 14:33 | NUR ---
Transition Record was faxed to follow-up provider with the following elements: Reason for admission, procedures, tests, principal diagnosis, pending studies, patient instructions, 30/01 contact information for unit, phone number to obtain pending test results, plan for follow-up care, physician follow-up, advanced directive information, and medication list with dose, duration and instructions. This information was included in the following documents:Transfer to ICU 3 History and physical, lab results, study results, progress notes, social work planning form, DC instruction form, patient visit summary, and medication reconciliation form. Date & time record faxed: Transfer to ICU 3 Record faxed to:Transfer to ICU 3 Record discussed with/ report given to:Transfer to ICU 3 Addendum: 09/17/19 at 1457 by FLORENCE THOMPSON RN RN Spoke and notified Pts daughter, Haider Colin @[phone].
[2019-09-17] MEDS ORDERED: QUEtiapine 25 MG TABLET. PO SCH (17:00)
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
--- NOTE | 2019-09-17 21:55 | PDOC ---
Exam Note: Pramod Note: Please also refer to the separate dictated note~for this date of service dictated separately.~Patient seen individually. Discussed the patient with Nursing staff reviewed the chart.~Reviewed interim history and current functioning. Reviewed vital signs,~Labs/ Radiology~and current medications noted below. Continue current treatment with the changes noted in the dictated addendum note Assessment: Vital Signs/I&O: Vital Signs Date Time Temp Pulse Resp B/P (MAP) Pulse Ox O2 Delivery O2 Flow Rate FiO2 09/17/19 09:40 81 120/82 09/17/19 06:25 98.3 18 94 09/12/19 06:11 Room Air I & O 09/16/19 09/16/19 09/17/19 15:00 23:00 07:00 Intake Total 960 ml 360 ml Balance 960 ml 360 ml Labs: Laboratory Tests Test 09/17/19 07:28 09/17/19 12:54 09/17/19 15:10 Glucose (Fingerstick) 163 mg/dL (70-99) H White Blood Count 13.3 x10^3/uL (4.0-11.0) H Red Blood Count 4.27 x10^6/uL (4.30-5.70) L Hemoglobin 12.3 g/dL (13.0-17.5) L Hematocrit 37.9 % (39.0-53.0) L Mean Corpuscular Volume 89 fL (79-100) Mean Corpuscular Hemoglobin 29 pg (25-35) Mean Corpuscular Hemoglobin Concent 32 g/dL (31-37) Red Cell Distribution Width 15.4 % (11.5-14.5) H Platelet Count 114 x10^3/uL (140-400) L Neutrophils (%) (Auto) 94 % (31-73) H Lymphocytes (%) (Auto) 2 % (24-48) L Monocytes (%) (Auto) 4 % (0-9) Eosinophils (%) (Auto) 0 % (0-3) Basophils (%) (Auto) 0 % (0-3) Neutrophils # (Auto) 12.4 x10^3uL (1.8-7.7) H Lymphocytes # (Auto) 0.3 x10^3/uL (1.0-4.8) L Monocytes # (Auto) 0.5 x10^3/uL (0.0-1.1) Eosinophils # (Auto) 0.0 x10^3/uL (0.0-0.7) Basophils # (Auto) 0.0 x10^3/uL (0.0-0.2) Segmented Neutrophils % 82 % (35-66) H Band Neutrophils % 12 % (0-9) H Lymphocytes % 1 % (24-48) L Monocytes % 5 % (0-10) Platelet Estimate Decreased (ADEQUATE) Polychromasia Slight Poikilocytosis Slight Anisocytosis Slight Tear Drop Cells Occ Ovalocytes Few Sodium Level 142 mmol/L (136-145) Potassium Level 3.7 mmol/L (3.5-5.1) Chloride Level 105 mmol/L (98-107) Carbon Dioxide Level 26 mmol/L (21-32) Anion Gap 11 (6-14) Blood Urea Nitrogen 24 mg/dL (8-26) Creatinine 1.3 mg/dL (0.7-1.3) Estimated GFR (Cockcroft-Gault) 54.1 BUN/Creatinine Ratio 18 (6-20) Glucose Level 224 mg/dL (70-99) H Lactic Acid Level 2.6 mmol/L (0.4-2.0) H 2.8 mmol/L (0.4-2.0) H Calcium Level 8.9 mg/dL (8.5-10.1) Total Bilirubin 0.9 mg/dL (0.2-1.0) Aspartate Amino Transferase (AST) 19 U/L (15-37) Alanine Aminotransferase (ALT) 18 U/L (16-63) Alkaline Phosphatase 85 U/L (46-116) Total Protein 6.6 g/dL (6.4-8.2) Albumin 3.4 g/dL (3.4-5.0) Albumin/Globulin Ratio 1.1 (1.0-1.7) Current Medications: I have reviewed the current psychotropics carefully including drug interactions. Risk benefit ratio favors no change other than as noted in my dictated progress note. Diagnosis: Problems: (1) Major neurocognitive disorder (2) Anxiety disorder (3) Dementia, vascular, with delusions (4) Dementia, vascular, with depression (5) Dementia in Alzheimer's disease with delusions (6) Dementia in Alzheimer's disease with depression (7) Impulse control disorder ALICIA,MAN M MD Sep 17, 2019 21:55
--- NOTE | 2019-09-18 08:08 | NUR ---
This is a late entry from 09/17/2019. BETHEL contacted Angle at the [facility] to let her know pt. had been moved to the first floor due to medical reasons. BETHEL gave Angle the contact information for the telephonic case manager on the first floor.
--- NOTE | 2019-09-18 08:09 | NUR ---
This is a late entry from 09/17/2019 BETHEL contacted pt. daughter, Nicole, who had been informed of pt. moved. BETHEL reported a liability claims representative from [facility] had seen pt. and recognized him from his former placement, as she use to do activities there. Nicole was happy to hear this liability claims representative remembered pt., had asked about pt., and that pt. had remember him, stating it might be the assistant sales director pt. had told Nicole he had missed when he moved. BETHEL also inquired on if it was okay for this liability claims representative visit pt., as she knew he had been moved downstairs to which Great readily answered yes.
--- NOTE | 2019-09-18 09:44 | DS ---
DATE OF DISCHARGE: 09/17/2019 DISCHARGE SUMMARY AND PSYCHIATRIC PROGRESS NOTE This late entry date, 09/16, covers elements not covered in my initial note. REASON FOR ADMISSION: Please refer to the admission history for details. Briefly, the patient is a 74-year-old male referred to us from the [facility] in [place] where he presented from the [facility] in [place] on account of worsening confusion, depression, and suicidal ideation and homicidal ideation. Reportedly, he wanted to jump off a building or use a gun or belt to end his life. He wanted to kill his daughter because he was angry at her about placing him at the facility. He was paranoid, thinking people are stealing his belongings. He has otherwise delusional thought the pool is a "life or game." The patient was deemed dangerous, behaviors were unmanageable at the facility, he was referred to the [facility], evaluated and then referred to us for inpatient psychiatric stabilization. SIGNIFICANT FINDINGS AND CLINICAL COURSE: Following admission, the patient was seen daily individually by myself from a psychiatric standpoint, medical followup with Dr. Lester. The patient was reasonably oriented; did have some short-term memory deficits, paranoia and depression. Adjustments were made in his psychotropics and he seemed to be responding to a combination of Namenda, which was adjusted to 10 mg b.i.d.; Remeron 15 mg at bedtime; Zyprexa p.r.n.; Zoloft 25 mg a day, increasing to 50 mg a day on 09/15; Seroquel 12.5 mg at 1700 and 25 mg at bedtime; trazodone 50 mg at bedtime p.r.n. insomnia, may repeat x 1. The patient was gradually doing better, but then developed sepsis with fever and respiratory distress. He was transferred to the ICU per Dr. Lester for further medical management. REVIEW OF SYSTEMS: Prior to discharge on 09/16, did complain of some shortness of breath and feeling unwell, but no CV, , eye, ENT system symptoms on review. MENTAL STATUS EXAM: Oriented to himself and situation. Speech has some latency, coherent. Abstraction fair, computation impaired, language function intact. Mood appears somewhat dysphoric and anxious. No active suicidal or homicidal ideation. LABORATORY DATA: Reviewed. FINAL DIAGNOSES: Major depressive disorder, recurrent, in partial remission; major neurocognitive disorder, early Alzheimer, vascular with delusion, depression; anxiety disorder, unspecified; sepsis; possible pneumonia. Rest as above. DISCHARGE MEDICATIONS: Please refer to the MRAD. DISCHARGE INSTRUCTIONS: Psychiatric and medical followup at the ICU per Dr. Lester. Time for discharge day management greater than 30 minutes. CHETAN VARGAS MD DR: ROSALIND/renetta JOB#: [id number] / [id number]
[2019-09-22] MEDS ORDERED: CEPH-264 PO (15:58)
== END 2019-09-17 14:36 | disposition short-term general hospital (02) | DRG 885 ==
LOC: GEROPSY 19:40
PROVIDERS: ADMIT Psychiatry & Neurology Psychiatry; ATTEND Psychiatry & Neurology Psychiatry
DX: F33.41 Major depressive disorder, recurrent, in partial remission (principal); A41.9 Sepsis, unspecified organism; J18.9 Pneumonia, unspecified organism; R45.851 Suicidal ideations; F63.9 Impulse disorder, unspecified; F02.80 Dementia in other diseases classified elsewhere, unspecified severity, without behavioral disturbance, psychotic disturbance, mood disturbance, and anxiety; G30.9 Alzheimer's disease, unspecified; F41.9 Anxiety disorder, unspecified; R45.850 Homicidal ideations; D64.9 Anemia, unspecified; E11.319 Type 2 diabetes mellitus with unspecified diabetic retinopathy without macular edema; E55.9 Vitamin D deficiency, unspecified; E78.5 Hyperlipidemia, unspecified; F01.50 Vascular dementia, unspecified severity, without behavioral disturbance, psychotic disturbance, mood disturbance, and anxiety; I10 Essential (primary) hypertension; I48.91 Unspecified atrial fibrillation; Z79.899 Other long term (current) drug therapy
CPT/HCPCS: 36415; 71045; 80053; 80061; 82306; 82607; 82947; 83036; 83540; 83550; 83605; 83735; 84436; 84443; 84480; 85007; 85025; 86592; 93005

== ENCOUNTER 2019-09-17 15:01 | Inpatient (IN) | payer OTHER ==
[2019-09-17] VITALS (8 sets, daily range): BP systolic 107–124; BP diastolic 51–68
[~2019-09-17] VITALS: Ht 170.2 cm; Wt 88.6 kg
[~2019-09-17 15:01] MED LIST: ACET-1874 PO; APIX5TAB3 PO; ARIP2TAB35 PO; ATOR40TA59 PO; CARV25TA2 PO; CHOL3000 PO; ERGO2000 PO; LISI40TA PO; MAG-95 PO; MAGN24003 PO; MEMA10TA PO; METF500T16 PO; METH57CR17 TP; MIRT15TA3 PO; MIRT7.5T8 PO; NYST15PO9 TP; OLAN5TAB9 PO; POLY2500 PO; QUET25TA PO; SERT50TA PO; SIMV80TA17 PO; TRAZ-120 PO; ZINC56CR2 TP
[2019-09-17] MEDS ORDERED: PIP/TAZO PER PHARMACY MC PRN (15:30)
--- NOTE | 2019-09-17 15:52 | HP ---
ADMIT DATE: 09/17/2019 HISTORY OF PRESENT ILLNESS: The patient is a 74-year-old male patient who was transferred from [facility] where he was noted to be febrile with temperature up to 104 degree Fahrenheit. He was shivering, but denied any specific localizing complaints. His white cell count was noted to be high and has risen from 6.1 yesterday to 13,300 today. His lactic acid was high at 2.6 millimoles per liter. We did a chest x-ray, which showed that the patient has diffuse central predominant interstitial infiltrate, suspected small pleural effusions. The patient himself did not complain of any shortness of breath, cough, phlegm or hemoptysis. Denied any dysuria, frequency or hematuria and the patient was transferred to ICU with sepsis. We did start him on the sepsis protocol, sent blood and urine for culture and sensitivity. Gave him IV fluid and started him on IV antibiotic empirically. PAST MEDICAL HISTORY: Significant for hyperlipidemia, hypertension, type 2 diabetes mellitus, diabetic retinopathy, atrial fibrillation, anemia, vitamin D deficiency. 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 PAST SURGICAL HISTORY: Significant for tonsillectomy. The patient was admitted to [facility] as a transfer from the [facility] in [place] on account of suicidal and homicidal ideation, wants to jump off a building, use a gun. He wants to kill his daughter because he is mad at her about placing him. He is paranoid, thinks people are stealing his stuff, things and roulette game, all this in a background of major neurocognitive disorder, Alzheimer, vascular, depression. ALLERGIES: He has no known drug allergies. MEDICATIONS: He is currently on quetiapine fumarate 12.5 mg daily, Namenda 10 mg twice a day, sertraline 50 mg daily, mirtazapine 15 mg at bedtime, trazodone 50 mg at bedtime, zinc oxide for Desitin diaper rash apply topically twice a day, vitamin D 50,000 International Units weekly, quetiapine fumarate 25 mg at bedtime, Namenda 5 mg twice a day, atorvastatin calcium 40 mg at bedtime, olanzapine 5 mg every 2 hours, polyethylene glycol 17 grams daily, lisinopril 40 mg daily, apixaban 5 mg twice a day, carvedilol 12.5 mg twice a day, metformin 500 mg twice a day, magnesium hydroxide for milk of magnesia 30 mL p.o. daily p.r.n. for constipation, and Mylanta 15 mL after meals and as needed, acetaminophen 650 mg every 6 hours, nystatin powder apply topically twice a day. PHYSICAL EXAMINATION: GENERAL: When I examined him this afternoon, he was resting slightly propped up in bed, in no apparent distress. He was clearly shivering. He was febrile. His temperature was 104. VITAL SIGNS: His heart rate was 81, blood pressure 120/82, temperature was 98.3, respiratory rate was 18 and oxygen saturation was 94%. HEAD, EYES, EARS, NOSE AND THROAT: Normocephalic, atraumatic. NECK: Supple. HEART: Showed normal first and second heart sounds. No gallop, rub or murmur. CHEST: Clear to auscultation. No crepitation or rhonchi. ABDOMEN: Distended, soft, nontender. No guarding or rigidity. No organomegaly. All hernial orifice intact. Bowel sounds normal. NEUROLOGIC: He was awake, alert, responding appropriately. All cranial nerves intact. EXTREMITIES: He moves extremities without difficulty. LABORATORY DATA: Showed that his white cell count was up to 13,300, hemoglobin 12.3, hematocrit 37.9, MCV 89 and platelet count of 114,000. His chemistry this morning showed a serum sodium 142, potassium 3.7, chloride 105, bicarbonate 26, anion gap of 11, BUN 24, creatinine 1.3, estimated GFR was 54 mL per minute. His glucose was 224, lactic acid was 2.6, calcium was 8.9. Total bilirubin, AST, ALT, alkaline phosphatase were normal. Total protein was 6.6, albumin was 3.4. His treponema pallidum antibodies were nonreactive. ASSESSMENT AND PLAN: The patient given his leukocytosis, lactic acidosis and fever with temperature 104 was transferred to ICU with diagnosis of sepsis. He has also acute kidney injury. His creatinine has risen from 0.9 to 1.3, and therefore, he was started on sepsis protocol, given IV fluid. We did send blood, urine for culture and sensitivity. Started him on vancomycin and Zosyn. LUCERO ISSA MD DR: JASSI/renetta JOB#: [id number] / [id number]
[2019-09-17] MEDS ORDERED: IV NORMAL SALINE 1,000ML 1,000 ML IV ONE (16:00)
[2019-09-17] MEDS: VANCOMYCIN PER PHARMACY MC PRN ×2 (16:01→16:45)
[2019-09-17] MEDS: IV NORMAL SALINE 1,000ML 1,000 ML IV SCH (16:28)
[2019-09-17 16:41] LABS: BACTERIA,URINE 0 /HPF (0-FEW); BILIRUBIN,URINE NEG (NEG); CLARITY,URINE HAZY; COLOR,URINE YELLOW; GLUCOSE,URINE NEG (NEG); NITRITE,URINE NEG (NEG); SQUAMOUS EPITHELIAL CELL,UR OCC /LPF; UROBILINOGEN,URINE 0.2 mg/dL (0.2 mg/dL)
[2019-09-17] MEDS ORDERED: DIGOXIN IV 500 MCG/2 ML AMPUL. IV ONE (16:45)
[2019-09-17] MEDS ORDERED: DEXTROSE 50% 25 GM / 50ML DISP.SYRIN. IV PRN ×2 (16:45→18:00)
--- NOTE | 2019-09-17 16:45 | NUR ---
Pharmacy Vancomycin Dosing Note S:Consulted to monitor and dose vancomycin started 09/17/19. O:SAURAV CHAHAL is a 74 year old M with Sepsis, . Height: 5 feet, 7 inches Weight: 86.0 kg [place] Body Weight: 66.10 Adjusted Body Weight: 74.06 Dosing Weight: Other Antibiotics: ZOSYN LABS: Last BUN: 24 Last Creatinine: 1.3 Creatinine Clearance: 53 Last WBC: 13.3 Last Procalcitonin: Tmax (past 24 hours): Microbiology: I/O: Drug Levels: Last level: on at Last dose given at Vancomycin Dosing: Loading Dose: 2000 mg x1 Dosing Weight: Target Trough: 15-20 A: Based on: HT, WT AND RENAL FXN P: 1. Begin Vancomycin 1500 mg IV q24h 2. Follow up Trough level on 09/19/19 at 1630 3. Pharmacy will continue to monitor, follow and adjust therapy as needed. RODRIGO FARFAN, [facility], 09/17/19 [id number]
[2019-09-17] MEDS: INSULIN LISPRO 300 UNITS/3 ML VIAL. SQ SCH (17:00)
[2019-09-17] MEDS ORDERED: VANCOMYCIN 2 GM in IV NORMAL SALINE 500ML 500 ML IV ONE (17:00)
--- NOTE | 2019-09-17 18:29 | NUR ---
PY ADMITTED TO ROOM 3 IN THE ICU. START ARANA AND ESTABLISH IV ACCESS. NOTICE PT LEFT LEG WARM TO TOUCH AND REDDISH. INFORM DR. ISSA. BLOOD CULTURES AND IV ABX STARTED. WILL CONTINUE TO ASSESS.
[2019-09-17] MEDS: PIPERACILLIN/TAZOBACTAM 3.375 GM in IV NORMAL SALINE 50ML 50 ML IV SCH (19:40)
[2019-09-17] MEDS ORDERED: ENOXAPARIN 40 MG/0.4 ML SYRINGE. SQ SCH (21:00)
[2019-09-18] VITALS (23 sets, daily range): BP systolic 95–131; BP diastolic 43–66
[2019-09-18] MEDS: PIPERACILLIN/TAZOBACTAM 3.375 GM in IV NORMAL SALINE 50ML 50 ML IV SCH ×4 (00:14→18:01)
[2019-09-18] MEDS: IV NORMAL SALINE 1,000ML 1,000 ML IV SCH ×3 (02:00→22:00)
--- NOTE | 2019-09-18 05:09 | NUR ---
PATIENT VERY LETHARGIC AND DROWSY, DOES AWAKEN WHEN SHAKEN. MARGINAL URINE OUTPUT. BATH GIVEN. MITTS REMAIN IN PLACE.
[2019-09-18] MEDS: INSULIN LISPRO 300 UNITS/3 ML VIAL. SQ SCH ×3 (08:00→17:00)
[2019-09-18] MEDS ORDERED: MAG HYDROX/AL HYDROX/SIMETH 30 ML ORAL.SUSP PO PRN (15:15)
[2019-09-18] MEDS ORDERED: NYSTATIN TOPICAL POWDER 15GM BOTTLE. TP PRN (15:15)
[2019-09-18] MEDS ORDERED: ACETAMINOPHEN 325 MG TABLET PO PRN (15:30)
--- NOTE | 2019-09-18 16:14 | RAD ---
Examination: Unilateral venous Doppler. Grayscale, color Doppler and spectral analysis were obtained. Indication: Left leg swelling Findings: There is normal venous flow and compressibility of left common femoral vein, femoral vein, popliteal vein, and visualized proximal calf veins. Of note, the left peroneal veins are poorly visualized due to left lower extremity swelling. Impression: No evidence for deep vein thrombosis of left lower extremity from the level of the visualized calf veins to the groin. Electronically signed by: Carlin Hardin MD (09/18/2019 4:11 PM) [id number]
[2019-09-18] MEDS ORDERED: VANCOMYCIN 1.5 GM in IV NORMAL SALINE 500ML 500 ML IV SCH (17:00)
[2019-09-18] MEDS: CARVEDILOL 12.5 MG TABLET PO SCH (17:00)
[2019-09-18] MEDS: QUEtiapine 25 MG TABLET. PO SCH ×2 (18:00→21:04)
[2019-09-18] MEDS: metFORMIN 500 MG TABLET PO SCH (18:00)
[2019-09-18] MEDS: MAGNESIUM HYDROXIDE 2,400 MG/30 ML ORAL.SUSP. PO SCH (21:00)
[2019-09-18] MEDS: METHYL SALICYLATE/MENTHOL TOPICAL OINTMENT 57GM TUBE. TP SCH (21:00)
[2019-09-18] MEDS: ZINC OXIDE/COD LIVER OIL 40% TOPICAL OINTMENT 56GM TUBE. TP SCH (21:03)
[2019-09-18] MEDS: MEMANTINE 10 MG TABLET. PO SCH (21:03)
[2019-09-18] MEDS: ATORVASTATIN CALCIUM 20 MG TABLET PO SCH (21:04)
[2019-09-18] MEDS: LACTOBACILLUS RHAMNOSUS GG 1 CAPSULE. PO SCH (21:04)
[2019-09-18] MEDS: MIRTAZAPINE 15 MG TABLET PO SCH (21:04)
[2019-09-18] MEDS: traZODone 50 MG TABLET. PO SCH (21:04)
[2019-09-18] MEDS: APIXABAN 5 MG TABLET. PO SCH (21:04)
--- NOTE | 2019-09-18 21:48 | PN ---
DATE: 09/18/2019 SUBJECTIVE: The patient is resting, slightly propped up in bed, in no apparent distress. He is definitely more awake, alert today. He is afebrile. Apparently, no lab work was done today. PHYSICAL EXAMINATION: GENERAL: When I examined him, he looked somewhat pale, but no jaundice, cyanosis or thyromegaly. No jugular venous distention. No lower limb edema. EXTREMITIES: His left lower extremity is more swollen and hot to touch. VITAL SIGNS: His heart rate was 59, blood pressure was 108/59, temperature was 98.3, respiratory rate was 17 and oxygen saturation was 97% on 2 liters of oxygen. HEAD, EYES, EARS, NOSE AND THROAT: Showed normocephalic, atraumatic. NECK: Supple. HEART: Normal first and second heart sounds. No gallop, rub or murmur. CHEST: Clear to auscultation. No crepitation or rhonchi. ABDOMEN: Distended, soft, nontender. NEUROLOGIC: He is definitely more awake, alert, responding appropriately. He moves upper extremities to much good extent than lower extremities. His left lower extremity is more swollen and warm to touch with faint erythema. His intake and output were incompletely recorded. No lab works were done. His blood sugar seems to be reasonably controlled. His procalcitonin was high at 2.90. So far, his blood and urine culture is still pending at the time of this dictation. ASSESSMENT: 1. Sepsis with leukocytosis and lactic acidosis. Source of infection is not very clear. 2. Acute kidney injury. His creatinine came down from 0.3-0.9. He has multiple other medical problems including: A. Hypertension. B. Hyperlipidemia. C. Type 2 diabetes mellitus. D. Atrial fibrillation. F. Anemia. G. Vitamin D deficiency. PLAN: My plan is to continue with IV vancomycin and Zosyn. I reconciled all his medication. I have ordered a venous Doppler ultrasound of his left lower extremity. We will repeat all his lab works again tomorrow. Once we have the blood and urine culture, we will decide the further management accordingly. LUCERO ISSA MD DR: JASSI/renetta JOB#: [id number] / [id number]
[2019-09-19] VITALS (11 sets, daily range): BP systolic 95–125; BP diastolic 56–76
[2019-09-19] MEDS: PIPERACILLIN/TAZOBACTAM 3.375 GM in IV NORMAL SALINE 50ML 50 ML IV SCH ×4 (00:17→18:53)
[2019-09-19 06:23] LABS: HEMATOCRIT 33.4 % (39.0-53.0); HEMOGLOBIN 10.7 g/dL (13.0-17.5); RED BLOOD COUNT 3.8 x10^6/uL (4.30-5.70); RED CELL DISTRIBUTION WIDTH 15.6 % (11.5-14.5); WHITE BLOOD COUNT 12.5 x10^3/uL (4.0-11.0)
--- NOTE | 2019-09-19 06:38 | NUR ---
Pt more alert this shift. Able to state name and , aware he is in the hospital but [facility]. Pt took HS pills whole, tolerated well. Slept through much of the night, awoke calling out at times asking if it was time to get up. Easily redirected. On Q2hr turning schedule to prevent break down. Bottom intact, but mildly reddened--Desitin applied for protection per order.
[2019-09-19 06:40] LABS: ALBUMIN 2.1 g/dL (3.4-5.0); ALBUMIN/GLOBULIN RATIO 0.6 (1.0-1.7); CALCIUM 7.7 mg/dL (8.5-10.1); CREATININE 0.9 mg/dL (0.7-1.3); GFR 82.7; POTASSIUM 3.6 mmol/L (3.5-5.1); TOTAL BILIRUBIN 0.6 mg/dL (0.2-1.0); TOTAL PROTEIN 5.4 g/dL (6.4-8.2)
[2019-09-19] MEDS: INSULIN LISPRO 300 UNITS/3 ML VIAL. SQ SCH ×3 (08:00→17:00)
[2019-09-19] MEDS: CHOLECALCIFEROL (VITAMIN D3) 1,000 UNIT TABLET PO SCH (08:41)
[2019-09-19] MEDS: CARVEDILOL 12.5 MG TABLET PO SCH ×2 (08:41→17:47)
[2019-09-19] MEDS: LACTOBACILLUS RHAMNOSUS GG 1 CAPSULE. PO SCH ×2 (08:41→21:00)
[2019-09-19] MEDS: APIXABAN 5 MG TABLET. PO SCH ×2 (08:41→21:01)
[2019-09-19] MEDS: SERTRALINE 50 MG TABLET. PO SCH (08:41)
[2019-09-19] MEDS: metFORMIN 500 MG TABLET PO SCH ×2 (08:41→17:47)
[2019-09-19] MEDS: IV NORMAL SALINE 1,000ML 1,000 ML IV SCH (08:42)
[2019-09-19] MEDS: LISINOPRIL 20 MG TABLET PO SCH (08:42)
[2019-09-19] MEDS: MEMANTINE 10 MG TABLET. PO SCH ×2 (08:43→21:01)
[2019-09-19] MEDS: ZINC OXIDE/COD LIVER OIL 40% TOPICAL OINTMENT 56GM TUBE. TP SCH ×2 (08:44→21:00)
[2019-09-19] MEDS: METHYL SALICYLATE/MENTHOL TOPICAL OINTMENT 57GM TUBE. TP SCH ×3 (08:46→21:00)
[2019-09-19] MEDS ORDERED: POLYETHYLENE GLYCOL 3350 17 GM PACKET. PO PRN (09:00)
[2019-09-19] MEDS: QUEtiapine 25 MG TABLET. PO SCH ×2 (17:47→21:00)
--- NOTE | 2019-09-19 17:55 | PN ---
DATE: 09/19/2019 SUBJECTIVE: The patient is resting, slightly propped up in bed, in no apparent distress. He is definitely more awake, alert. On questioning him, continued to complain of some pain in his left lower extremity that is red and swollen. We did actually venous Doppler ultrasound, which showed no evidence of deep vein thrombosis of his left lower extremity from the level of the visualized calf veins to the groin. PHYSICAL EXAMINATION: GENERAL: When I examined him today, he looked pale, but no jaundice, cyanosis or thyromegaly. No jugular venous distention or limb edema. VITAL SIGNS: Heart rate was 72, blood pressure was 125/63, temperature was 98.1, respiratory rate was 16, and oxygen saturation was 97% on 2 liters of oxygen. HEAD, EYES, EARS, NOSE AND THROAT: Showed normocephalic, atraumatic. NECK: Supple. HEART: Showed normal first and second heart sounds. No gallop or murmur. CHEST: Clear to auscultation. No crepitation or rhonchi. ABDOMEN: Distended, soft, nontender. No guarding or rigidity. No organomegaly. All hernial orifice intact. Bowel sounds normal. NEUROLOGIC: He was awake, alert, responding appropriately. All cranial nerves are intact. He moves extremities without difficulty. He managed to get out of the bed to bedside commode. His intake over the last 24 hours was 3890, output was 1000. LABORATORY DATA: His lab work this morning showed his white cell count is slightly down to 12,500, hemoglobin 11, hematocrit 33, MCV 88, and platelet count of 78,000. His chemistry showed a serum sodium 142, potassium 3.6, chloride 109, bicarbonate 26, anion gap of 7, BUN 26, creatinine 0.9, estimated GFR was 82 mL per minute. His glucose was 116, calcium was 7.7. Total bilirubin, AST, ALT, alkaline phosphatase were normal. Total protein was 5.4, albumin 2.1. ASSESSMENT: 1. Sepsis with leukocytosis and lactic acidosis, resolving. His most likely source of infection is his left lower extremity cellulitis, although his blood culture is still pending at the time of this dictation. 2. Acute kidney injury. His creatinine is down to 0.9 from 1.3. OTHER MEDICAL PROBLEMS: Include: A. Hypertension. B. Hyperlipidemia. C. Type 2 diabetes mellitus. D. Atrial fibrillation. F. Anemia. D. Vitamin D deficiency. PLAN: To continue with IV vancomycin and Zosyn, await the result of the culture and sensitivity and decide the further management accordingly. LUCERO ISSA MD DR: JASSI/renetta JOB#: [id number] / [id number]
[2019-09-19] MEDS: VANCOMYCIN PER PHARMACY MC PRN (18:01)
--- NOTE | 2019-09-19 18:01 | NUR ---
Pharmacy Vancomycin Dosing Note S:Consulted to monitor and dose vancomycin started 09/17/19. O:SAURAV CHAHAL is a 74 year old M with Pneumonia, . Height: 5 feet, 7 inches Weight: 87.9 kg [place] Body Weight: 66.10 Adjusted Body Weight: 74.46 Dosing Weight: Actual Other Antibiotics: ZOSYN 3.375GRAM Q6HRS LABS: Last BUN: 26 Last Creatinine: 0.9 Creatinine Clearance: 53 Last WBC: 12.5 Last Procalcitonin: Tmax (past 24 hours): Microbiology: I/O: Drug Levels: Last Trough level: 9 on 09/19/19 at 1630 Last dose given 09/19/19 at 1800 Vancomycin Dosing: Loading Dose: 2000 mg x1 Dosing Weight: Actual Target Trough: 15-20 A: Based on: P: 1. Change to Vancomycin 1500 mg IV q12h from q24hrs 2. Follow up Trough level on 09/21/19 at 0530 3. Pharmacy will continue to monitor, follow and adjust therapy as needed. DELFINA ROLON [facility], 09/19/19 [id number]
[2019-09-19] MEDS: MAGNESIUM HYDROXIDE 2,400 MG/30 ML ORAL.SUSP. PO SCH (21:00)
[2019-09-19] MEDS: ATORVASTATIN CALCIUM 20 MG TABLET PO SCH (21:00)
[2019-09-19] MEDS: MIRTAZAPINE 15 MG TABLET PO SCH (21:00)
[2019-09-19] MEDS: traZODone 50 MG TABLET. PO SCH (21:01)
--- NOTE | 2019-09-19 22:18 | NUR ---
Pt noted to have labile mood this evening. Pt pulling off telemetry leads and nasal cannula. Pt quite confused, believes he is in [place]. Irritable with attempts to redirect or reorient to hospital and situation. Pt then assisted to bathroom x1 assist with walker and gait belt, tolerated fair. Once back in bad, pt pleasant and asked if this medical technical writer would stay to watch the evening news with him. HS pills given whole. Pt later allowed RN to replace tele leads and nasal cannula with O2 at 1L, as he was sating 88-89% on RA. Pt now resting comfortably in bed.
[2019-09-20] VITALS: BP 119/67
[2019-09-20] MEDS: PIPERACILLIN/TAZOBACTAM 3.375 GM in IV NORMAL SALINE 50ML 50 ML IV SCH ×4 (00:17→17:37)
[2019-09-20 04:35] VITALS: BP 130/68
[2019-09-20] MEDS: VANCOMYCIN 1.5 GM in IV NORMAL SALINE 500ML 500 ML IV SCH ×2 (05:54→17:54)
[2019-09-20 06:22] LABS: HEMATOCRIT 33.1 % (39.0-53.0); HEMOGLOBIN 10.7 g/dL (13.0-17.5); RED BLOOD COUNT 3.73 x10^6/uL (4.30-5.70); RED CELL DISTRIBUTION WIDTH 15.6 % (11.5-14.5); WHITE BLOOD COUNT 10.7 x10^3/uL (4.0-11.0)
[2019-09-20 06:33] LABS: CALCIUM 8.1 mg/dL (8.5-10.1); GFR 73.2; POTASSIUM 3.7 mmol/L (3.5-5.1)
--- NOTE | 2019-09-20 06:44 | NUR ---
Pt transferred from ICU to [facility] room 115 via WC. Telemetry re-applied. All belongings sent with pt. Will give report to oncandriy day RN.
[2019-09-20 07:00] VITALS: BP 130/68
[2019-09-20] MEDS: INSULIN LISPRO 300 UNITS/3 ML VIAL. SQ SCH ×3 (08:00→16:51)
[2019-09-20] MEDS: MEMANTINE 10 MG TABLET. PO SCH ×2 (08:40→20:28)
[2019-09-20] MEDS: CHOLECALCIFEROL (VITAMIN D3) 1,000 UNIT TABLET PO SCH (08:40)
[2019-09-20] MEDS: LACTOBACILLUS RHAMNOSUS GG 1 CAPSULE. PO SCH ×2 (08:40→20:20)
[2019-09-20] MEDS: SERTRALINE 50 MG TABLET. PO SCH (08:40)
[2019-09-20] MEDS: APIXABAN 5 MG TABLET. PO SCH ×2 (08:41→20:20)
[2019-09-20] MEDS: metFORMIN 500 MG TABLET PO SCH ×2 (08:41→16:57)
[2019-09-20] MEDS: LISINOPRIL 20 MG TABLET PO SCH (08:41)
[2019-09-20] MEDS: METHYL SALICYLATE/MENTHOL TOPICAL OINTMENT 57GM TUBE. TP SCH ×3 (08:41→20:22)
[2019-09-20] MEDS: ZINC OXIDE/COD LIVER OIL 40% TOPICAL OINTMENT 56GM TUBE. TP SCH ×2 (08:41→20:19)
[2019-09-20] MEDS: CARVEDILOL 12.5 MG TABLET PO SCH ×2 (08:41→16:58)
[2019-09-20 10:30] VITALS: BP 110/76
--- NOTE | 2019-09-20 15:38 | PN ---
DATE: 09/20/2019 SUBJECTIVE: The patient is sitting comfortably in his chair, in no apparent distress. He is definitely more awake, alert, responding appropriately. He has been able to walk with a walker and had a shower today. He does not complain of any pain when he is walking on his left foot, but when I examined him, he had marked tenderness on the outer aspect of his left leg. We did actually venous Doppler ultrasound, which showed no evidence of deep vein thrombosis; however, I could not palpate his dorsalis pedis and tibialis posterior and his left foot is cold. PHYSICAL EXAMINATION: GENERAL: When I examined him this afternoon, he looked well and was clearly in no apparent respiratory distress, pale, but no jaundice, cyanosis or thyromegaly. No jugular venous distention. No lower limb edema. VITAL SIGNS: Her heart rate was 70, blood pressure was 110/76, temperature was 97.5, respiratory rate 20 and oxygen saturation was 96% on 2 liters of oxygen. HEAD, EYES, EARS, NOSE AND THROAT: Showed normocephalic, atraumatic. NECK: Supple. HEART: Showed normal first and second heart sounds. No gallop or murmur. CHEST: Clear to auscultation. No crepitation or rhonchi. ABDOMEN: Distended, soft, nontender. NEUROLOGIC: He was definitely more awake, alert, responding appropriately. He moves extremities without difficulty, ambulates with a walker. His intake over the last 24 hours was 3980, output was 1000. LABORATORY DATA: This morning showed a white cell count of 10,000, hemoglobin 11, hematocrit 33, MCV 89 and platelet count of 87,000. His chemistry this morning showed a serum sodium of 145, potassium 3.7, chloride 110, bicarbonate 27, anion gap of 8, BUN 20, creatinine 1, estimated GFR was 73 mL per minute. His glucose 126, calcium was 8.1. Urinalysis was unremarkable and his toxic screen showed vancomycin trough level of 9. ASSESSMENT: 1. Sepsis with leukocytosis and lactic acidosis, resolving. His most likely source of infection in his left lower extremity cellulitis, although his blood culture is still pending at the time of this dictation. 2. Acute kidney injury, resolved. His creatinine is down to 1 g/dL. 3. Other medical problems include: A. Hypertension. B. Hyperlipidemia. C. Type 2 diabetes. D. Atrial fibrillation. E. Anemia. F. Vitamin D deficiency. PLAN: To continue with IV vancomycin and Zosyn. Await the result of the culture and sensitivity. I will also arrange for him to have arterial Doppler ultrasound of his left lower extremity and decide the further management accordingly. LUCERO ISSA MD DR: JASSI/renetta JOB#: [id number] / [id number]
[2019-09-20 15:40] VITALS: BP 150/70
--- NOTE | 2019-09-20 16:35 | RAD ---
Left lower extremity arterial duplex study 09/20/2019 CLINICAL HISTORY: Left leg pain. Cold left foot. Diminished arterial pulses. TECHNIQUE: Using a combination of real-time ultrasound imaging and color-flow and pulse doppler imaging techniques, duplex evaluation of the major arterial structures of the left lower extremity was performed. Multiple images were obtained. FINDINGS: Scattered mild to moderate atherosclerotic/atheromatous plaque formation is seen involving the major arterial structures of the left lower extremity. Biphasic arterial waveforms are seen throughout. The peak systolic velocities taper normally. No hemodynamically significant stenosis or area of acute occlusion is seen. IMPRESSION: Mild to moderate scattered atheromatous/atherosclerotic plaque formation is seen involving the major arterial structures of the left lower extremity. No hemodynamically significant stenosis or area of occlusion is seen. Electronically signed by: Suman Bardales MD (09/20/2019 4:31 PM) [facility] [place]
[2019-09-20] MEDS: QUEtiapine 25 MG TABLET. PO SCH ×2 (16:58→20:20)
[2019-09-20 19:38] VITALS: BP_SYST 101; BP_SYST 105; BP_DIAS 63; BP_DIAS 72
[2019-09-20] MEDS: ATORVASTATIN CALCIUM 20 MG TABLET PO SCH (20:19)
[2019-09-20] MEDS: MIRTAZAPINE 15 MG TABLET PO SCH (20:20)
[2019-09-20] MEDS: MAGNESIUM HYDROXIDE 2,400 MG/30 ML ORAL.SUSP. PO SCH (20:21)
--- NOTE | 2019-09-20 21:19 | PDOC ---
Exam Note: Pramod Note: Please also refer to the separate dictated note~for this date of service dictated separately.~Patient seen individually. Discussed the patient with Nursing staff reviewed the chart.~Reviewed interim history and current functioning. Reviewed vital signs,~Labs/ Radiology~and current medications noted below. Continue current treatment with the changes noted in the dictated addendum note Assessment: Vital Signs/I&O: Vital Signs Date Time Temp Pulse Resp B/P (MAP) Pulse Ox O2 Delivery O2 Flow Rate FiO2 09/20/19 19:38 97.7 83 20 105/63 (77) 97 Room Air 09/20/19 09:24 2.0 I & O 09/19/19 09/19/19 09/20/19 15:00 23:00 07:00 Intake Total 700 ml 1000 ml 250 ml Balance 700 ml 1000 ml 250 ml Labs: Laboratory Tests Test 09/20/19 05:50 09/20/19 11:28 09/20/19 16:32 09/20/19 20:29 White Blood Count 10.7 x10^3/uL (4.0-11.0) Red Blood Count 3.73 x10^6/uL (4.30-5.70) L Hemoglobin 10.7 g/dL (13.0-17.5) L Hematocrit 33.1 % (39.0-53.0) L Mean Corpuscular Volume 89 fL (79-100) Mean Corpuscular Hemoglobin 29 pg (25-35) Mean Corpuscular Hemoglobin Concent 32 g/dL (31-37) Red Cell Distribution Width 15.6 % (11.5-14.5) H Platelet Count 87 x10^3/uL (140-400) L Sodium Level 145 mmol/L (136-145) Potassium Level 3.7 mmol/L (3.5-5.1) Chloride Level 110 mmol/L (98-107) H Carbon Dioxide Level 27 mmol/L (21-32) Anion Gap 8 (6-14) Blood Urea Nitrogen 20 mg/dL (8-26) Creatinine 1.0 mg/dL (0.7-1.3) Estimated GFR (Cockcroft-Gault) 73.2 Glucose Level 126 mg/dL (70-99) H Calcium Level 8.1 mg/dL (8.5-10.1) L C-Reactive Protein 157.5 mg/L (0-3.3) H Glucose (Fingerstick) 138 mg/dL (70-99) H 121 mg/dL (70-99) H 143 mg/dL (70-99) H Current Medications: Meds: Current Medications Medications (Trade) Dose Ordered Sig/Fatemeh Route PRN Reason Start Time Stop Time Status Last Admin Dose Admin Vancomycin HCl 1.5 gm/Sodium Chloride 500 ml @ 250 mls/hr Q12H IV 09/20/19 06:00 09/20/19 17:54 I have reviewed the current psychotropics carefully including drug interactions. Risk benefit ratio favors no change other than as noted in my dictated progress note. 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
--- NOTE | 2019-09-20 23:02 | PN ---
DATE: 09/20/2019 PSYCHIATRIC PROGRESS NOTE This note covers elements not covered in my initial note of 09/20/2019. SUBJECTIVE: The patient is a 74-year-old male seen in bed [address], [address] [place] [address], for a psychiatric consult requested by Dr. Lester after the patient was transferred [facility] the [facility] to the ICU for pneumonia. The patient was then transferred to [address] [place] [address] as he stabilized and intermittently has been agitated, aggressive with cares, difficult to redirect, pulling at his linen and the IV and Foleys. However, as I discussed with the nursing staff in the evening of 09/20/2019, this has been better latter part of the day today showing some improvement. I have reviewed his history from the prior hospitalization where he was referred to us from the long term for agitated, disruptive behaviors within the context of his dementia. REVIEW OF SYSTEMS: No CV, , pulmonary, eye system symptoms on review. MENTAL STATUS EXAM: Oriented to himself. Insight, judgment, recent memory is impaired. Language function intact. Attention span short. Mood and affect somewhat withdrawn. LABORATORY DATA: Reviewed. IMPRESSION: Major neurocognitive disorder, early Alzheimer, vascular with delusion, depression, status post pneumonia. Rest unchanged. PLAN: Continue Zyprexa p.r.n. Maintain the rest of his psychotropics for now. If agitation persists, we may need to further adjust his psychotropics. He may need transfer to the [facility] if he is very aggressive, otherwise may transition to a lower level of care. CHETAN VARGAS MD DR: ROSALIND/renetta JOB#: [id number] / [id number]
[2019-09-21 00:17] VITALS: BP 128/67
--- NOTE | 2019-09-21 00:24 | NUR ---
AT 0018 AND OO19 PT HAD 16 BTS OF V-TACH. VSS WERE 128/67 HR 105. PT WAS SLEEPING AND ASYMPTOMATIC. PT HAD TO BE AWAKEN. DR. ISSA WAS NOTIFIED OF AFOREMENTION. ORDERS WERE GIVEN FOR A ROUTINE CARDIO CONSULT AND AM LABS. PT IS AFIB CONTROLLED, TAKES ELIQUIS. WILL CONTINUE TO MONITOR.
[2019-09-21] MEDS: PIPERACILLIN/TAZOBACTAM 3.375 GM in IV NORMAL SALINE 50ML 50 ML IV SCH ×4 (00:38→17:40)
[2019-09-21] MEDS: VANCOMYCIN 1.5 GM in IV NORMAL SALINE 500ML 500 ML IV SCH ×2 (07:00→18:00)
[2019-09-21] MEDS: INSULIN LISPRO 300 UNITS/3 ML VIAL. SQ SCH ×3 (08:00→17:00)
[2019-09-21] MEDS: LISINOPRIL 20 MG TABLET PO SCH (08:15)
[2019-09-21] MEDS: METHYL SALICYLATE/MENTHOL TOPICAL OINTMENT 57GM TUBE. TP SCH ×3 (08:15→20:51)
[2019-09-21] MEDS: CHOLECALCIFEROL (VITAMIN D3) 1,000 UNIT TABLET PO SCH (08:15)
[2019-09-21] MEDS: CARVEDILOL 12.5 MG TABLET PO SCH ×2 (08:15→17:40)
[2019-09-21] MEDS: APIXABAN 5 MG TABLET. PO SCH ×2 (08:15→20:46)
[2019-09-21] MEDS: ZINC OXIDE/COD LIVER OIL 40% TOPICAL OINTMENT 56GM TUBE. TP SCH ×2 (08:15→20:47)
[2019-09-21] MEDS: LACTOBACILLUS RHAMNOSUS GG 1 CAPSULE. PO SCH ×2 (08:15→20:45)
[2019-09-21] MEDS: metFORMIN 500 MG TABLET PO SCH ×2 (08:15→17:40)
[2019-09-21] MEDS: MEMANTINE 10 MG TABLET. PO SCH ×2 (08:15→20:45)
[2019-09-21] MEDS: SERTRALINE 50 MG TABLET. PO SCH (08:15)
[2019-09-21 08:29] LABS: ALBUMIN 1.9 g/dL (3.4-5.0); ALBUMIN/GLOBULIN RATIO 0.7 (1.0-1.7); CALCIUM 7.9 mg/dL (8.5-10.1); GFR 73.2; MAGNESIUM 1.9 mg/dL (1.8-2.4); POTASSIUM 3.7 mmol/L (3.5-5.1); TOTAL BILIRUBIN 0.5 mg/dL (0.2-1.0); TOTAL PROTEIN 4.5 g/dL (6.4-8.2); VANC TR 18.3 mcg/mL (10.0-20.0)
[2019-09-21 11:04] VITALS: BP 112/61
[2019-09-21 14:11] LABS: HEMATOCRIT 30.6 % (39.0-53.0); HEMOGLOBIN 10.1 g/dL (13.0-17.5); RED BLOOD COUNT 3.51 x10^6/uL (4.30-5.70); WHITE BLOOD COUNT 8.1 x10^3/uL (4.0-11.0)
[2019-09-21 14:12] LABS: RED CELL DISTRIBUTION WIDTH 15.7 % (11.5-14.5)
[2019-09-21 15:00] VITALS: BP 111/68
[2019-09-21] MEDS: QUEtiapine 25 MG TABLET. PO SCH ×2 (17:40→20:45)
[2019-09-21 19:30] VITALS: BP 168/76
[2019-09-21] MEDS: MAGNESIUM HYDROXIDE 2,400 MG/30 ML ORAL.SUSP. PO SCH (20:44)
[2019-09-21] MEDS: ATORVASTATIN CALCIUM 20 MG TABLET PO SCH (20:45)
[2019-09-21] MEDS: MIRTAZAPINE 15 MG TABLET PO SCH (20:46)
[2019-09-22] MEDS: PIPERACILLIN/TAZOBACTAM 3.375 GM in IV NORMAL SALINE 50ML 50 ML IV SCH ×3 (00:42→12:20)
[2019-09-22 06:02] VITALS: BP 155/71
[2019-09-22] MEDS: VANCOMYCIN 1.5 GM in IV NORMAL SALINE 500ML 500 ML IV SCH (06:38)
[2019-09-22] MEDS: INSULIN LISPRO 300 UNITS/3 ML VIAL. SQ SCH ×3 (08:00→16:30)
[2019-09-22] MEDS: LACTOBACILLUS RHAMNOSUS GG 1 CAPSULE. PO SCH (08:01)
[2019-09-22] MEDS: CARVEDILOL 12.5 MG TABLET PO SCH ×2 (08:01→16:30)
[2019-09-22] MEDS: MEMANTINE 10 MG TABLET. PO SCH (08:01)
[2019-09-22] MEDS: APIXABAN 5 MG TABLET. PO SCH (08:01)
[2019-09-22] MEDS: CHOLECALCIFEROL (VITAMIN D3) 1,000 UNIT TABLET PO SCH (08:01)
[2019-09-22] MEDS: metFORMIN 500 MG TABLET PO SCH ×2 (08:01→16:30)
[2019-09-22 08:02] VITALS: BP 155/71
[2019-09-22] MEDS: LISINOPRIL 20 MG TABLET PO SCH (08:02)
[2019-09-22] MEDS: SERTRALINE 50 MG TABLET. PO SCH (08:02)
[2019-09-22] MEDS: ZINC OXIDE/COD LIVER OIL 40% TOPICAL OINTMENT 56GM TUBE. TP SCH (08:03)
[2019-09-22] MEDS: METHYL SALICYLATE/MENTHOL TOPICAL OINTMENT 57GM TUBE. TP SCH ×2 (09:00→14:00)
--- NOTE | 2019-09-22 09:11 | NUR ---
PT is partially able to verbalize understanding of poc. Reinforced pt to not get up without help. Claude ELLIS
[2019-09-22] MEDS ORDERED: ZINC OXIDE/COD LIVER OIL 40% TOPICAL OINTMENT 56GM TUBE. TP PRN (11:15)
--- NOTE | 2019-09-22 12:07 | NUR ---
Chidi went to take pt blood sugar and asked what he was doing and he replied "trying to figure out how to kill myself". Meghan San reported earlier that he also said you better watch me so "i don't fall and bust my head open and bleed everywhere". Dr Loi Alarcon and Dr. Lester on unit. Claude RN
--- NOTE | 2019-09-22 12:24 | NUR ---
Removed any thing from room that is unsafe to patient. PT is now denying that this episode happened. Dr Monsivais said to have patient screen to go back up to [facility]. Jacob Petty RN
--- NOTE | 2019-09-22 14:38 | NUR ---
PT in hallway for 1:1 observation until he can go back upstairs. Waiting to hear from [facility] when pt can go back upstairs. Claude ELLIS
[2019-09-22] MEDS ORDERED: CEPH-264 PO (15:58)
[2019-09-22] MEDS: QUEtiapine 25 MG TABLET. PO SCH (16:30)
--- NOTE | 2019-09-22 16:36 | NUR ---
pt dc back to [facility] for SI ideation. Report given to Greg verbalized understanding of poc and discharge instructions and medications. B Lizzeth NR
--- NOTE | 2019-09-23 18:35 | PN ---
DATE: 09/20/2019 PSYCHIATRIC PROGRESS NOTE This late entry 09/20/2019 covers elements not covered in my initial note. SUBJECTIVE: I met with the patient evening of 09/20/2019. Overall, per nursing staff, the patient is doing better from a medical standpoint. He continues to have short-term memory deficits, but has not voiced any suicidal or homicidal ideation. He still resents being at facility where his daughter has placed him, but when questioned directly denies any animosity towards the daughter for this. REVIEW OF SYSTEMS: No CV, , pulmonary, eye system symptoms on review. MENTAL STATUS EXAM: Oriented to himself and situation. Speech is coherent, has some latency. Abstraction fair, computation impaired, language function intact, attention span short. Mood and affect somewhat withdrawn. LABORATORY DATA: Reviewed. IMPRESSION: Unchanged from initial note. PLAN: No change from initial note. MAN Winston VARGAS MD DR: ROSALIND/renetta JOB#: [id number] / [id number]
== END 2019-09-22 16:38 | DRG 871 ==
LOC: ICU 15:01 → 1 SOUTH 09-20 06:41
PROVIDERS: ADMIT Internal Medicine; ATTEND Internal Medicine
DX: A41.9 Sepsis, unspecified organism (principal); J18.9 Pneumonia, unspecified organism; N17.9 Acute kidney failure, unspecified; L03.116 Cellulitis of left lower limb; D64.9 Anemia, unspecified; E11.319 Type 2 diabetes mellitus with unspecified diabetic retinopathy without macular edema; E55.9 Vitamin D deficiency, unspecified; E78.5 Hyperlipidemia, unspecified; F01.50 Vascular dementia, unspecified severity, without behavioral disturbance, psychotic disturbance, mood disturbance, and anxiety; F02.80 Dementia in other diseases classified elsewhere, unspecified severity, without behavioral disturbance, psychotic disturbance, mood disturbance, and anxiety; F32.9 Major depressive disorder, single episode, unspecified; F41.9 Anxiety disorder, unspecified; F63.9 Impulse disorder, unspecified; G30.9 Alzheimer's disease, unspecified; I10 Essential (primary) hypertension; I48.91 Unspecified atrial fibrillation; F43.23 Adjustment disorder with mixed anxiety and depressed mood; Z79.899 Other long term (current) drug therapy
CPT/HCPCS: 36415; 80048; 80053; 80202; 81001; 82550; 82947; 83735; 84145; 84484; 85027; 85651; 86140; 87040; 93926; 93971; J1160; J1650; J1815; J2543; J3370; J7040; 97535; J7030

== ENCOUNTER 2019-09-22 16:20 | Inpatient (IN) | payer OTHER ==
[~2019-09-22] VITALS: Ht 175.3 cm; Wt 86.9 kg
[~2019-09-22 16:20] MED LIST changes: +CEPH-264 PO
[2019-09-22] MEDS ORDERED: METHYL SALICYLATE/MENTHOL TOPICAL OINTMENT 57GM TUBE. TP PRN (18:00)
[2019-09-22] MEDS ORDERED: MAG HYDROX/AL HYDROX/SIMETH 30 ML ORAL.SUSP PO PRN ×2 (18:00→19:30)
[2019-09-22] MEDS ORDERED: ACETAMINOPHEN 325 MG TABLET PO PRN ×2 (18:00→19:30)
[2019-09-22] MEDS ORDERED: MAGNESIUM HYDROXIDE 2,400 MG/30 ML ORAL.SUSP. PO PRN (18:00)
[2019-09-22 18:18] VITALS: BP 147/74
[2019-09-22] MEDS ORDERED: traZODone 50 MG TABLET. PO PRN (19:30)
[2019-09-22] MEDS ORDERED: NYSTATIN TOPICAL POWDER 15GM BOTTLE. TP PRN (19:30)
[2019-09-22] MEDS ORDERED: OLANZapine 5 MG TABLET PO PRN (20:00)
[2019-09-22] MEDS: QUEtiapine 25 MG TABLET. PO SCH (21:03)
[2019-09-22] MEDS: CEPHALEXIN 250 MG CAPSULE PO SCH (21:03)
[2019-09-22] MEDS: ATORVASTATIN CALCIUM 20 MG TABLET PO SCH (21:03)
[2019-09-22] MEDS: APIXABAN 5 MG TABLET. PO SCH (21:03)
[2019-09-22] MEDS: MAGNESIUM HYDROXIDE 2,400 MG/30 ML ORAL.SUSP. PO SCH (21:04)
[2019-09-22] MEDS: MIRTAZAPINE 15 MG TABLET PO SCH (21:04)
[2019-09-22] MEDS: MEMANTINE 10 MG TABLET. PO SCH (21:04)
[2019-09-22] MEDS: CARVEDILOL 12.5 MG TABLET PO SCH (21:10)
[2019-09-22] MEDS: METHYL SALICYLATE/MENTHOL TOPICAL OINTMENT 57GM TUBE. TP SCH (21:10)
[2019-09-23 05:57] VITALS: BP 134/56
[2019-09-23] MEDS: ZINC OXIDE 20% TOPICAL OINTMENT 28GM TUBE. TP SCH ×2 (09:00→20:46)
[2019-09-23] MEDS ORDERED: POLYETHYLENE GLYCOL 3350 17 GM PACKET. PO PRN (09:00)
[2019-09-23] MEDS: CEPHALEXIN 250 MG CAPSULE PO SCH ×4 (09:10→20:46)
[2019-09-23] MEDS: LISINOPRIL 20 MG TABLET PO SCH (09:10)
[2019-09-23] MEDS: MEMANTINE 10 MG TABLET. PO SCH ×2 (09:11→20:46)
[2019-09-23] MEDS: SERTRALINE 50 MG TABLET. PO SCH (09:11)
[2019-09-23] MEDS: APIXABAN 5 MG TABLET. PO SCH ×2 (09:11→20:46)
[2019-09-23] MEDS: CHOLECALCIFEROL (VITAMIN D3) 1,000 UNIT TABLET PO SCH (09:11)
[2019-09-23] MEDS: metFORMIN 500 MG TABLET PO SCH ×2 (09:11→17:17)
[2019-09-23] MEDS: CARVEDILOL 12.5 MG TABLET PO SCH ×2 (09:11→17:18)
[2019-09-23] MEDS: METHYL SALICYLATE/MENTHOL TOPICAL OINTMENT 57GM TUBE. TP SCH ×3 (09:12→20:46)
--- NOTE | 2019-09-23 14:23 | TX PLAN ---
Interdisciplinary Tx Plan Admission Information Sep 22, 2019 at 16:38 Legal Status (on Admission): Voluntary, DPOA DPOA/Guardian Name: Nicole GILLES Pro Contact (H) or [phone] (W) Other Contact Name: [facility] Verified Code Status: Full Code Allergies: Coded Allergies: No Known Drug Allergies (Unverified , 09/10/19) Estimated Length of Stay: 10 Diagnoses Primary Diagnosis: Major Neurocognitive Disorder Reasons for Admission: Suicidal ideation Problem in Patient's Words: Per pt., "My daughter made a complaint that I was unable to care for myself." "Which is untrue." "That is why I ended up here." Per pt. daughter, "They told me he was suicidal" and stating "ways he could do it". "He was going to use his belt, and they couldn't take it away from him." Problems Active Problems: Updated: Per pt. intake, SI pt. stating "thinking of ways to kill myself" whenmetal silverware removed, pt. stated you can use plastic you just have push harder. Prior Admission: Per pt. intake, pt. was SI/HI, jump off building, gun, or use his belt, wants to kill himself and daughter, paranoid people are stealing his stuff, and thinks pool is a game of life or . Inactive Problems: Pt. is compliant with medication and cooperative with cares. Pt Strengths/Limitations Ability for Weld: Poor Cognitive Functioning/Ability: Poor Communication Skills/Ability: Fair Financial Resources: Fair Insight/Judgement: Poor Intellectual Ability: Fair Physical Health: Fair Social Skills: Fair Stability in Family: Good Verbal Skills: Good Discharge Criteria Discharge Criteria: No need for close observ., Adequate arrangements @DC, Improved behavior, Improved mood/thought Preliminary Discharge Plan Preliminary DC Plan: Current Living Arrange. Special Precautions Special Precautions: Suicide Risk Fall Risk: High Initial D/C Plan Pt. will return to [facility] at the [facility]. Identified Discharge Needs: Pt. will need follow up with Psychiatrist and PCP. Safety Plan Currently Utilized Resources Currently Utilized Resources/P: Psychiatrist and PCP at the [facility]. Identified Problems/Hx/Goals Objectives/Short-Term Goals Short Term Goals: Medication Stabilization, Monitor Med Effects, No Suicidal/Viraj. ideation, Promote Coping Skill Short Term Goals in Patient's: Per pt., "I hope I can get out." "I hope I can please people..." Pt. began to speak about wanting a room where he can stay and have the freedom to come and go when he wanted to. 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 Education: Pt. graduated from high school and went on to get a "Masters of Science in Industrial Technology from [employer]." Pt. also shared the university sent him to training where he "learned how to fly." Community Follow-up Follow Up with PCP and Psychiatrist Community Provider/Family Inpu: Pt. daughter stated, "I hope, maybe, he can get stabilized and be able to return to that place." She also hopes he will be "less paranoid" and "less depressed". Treatment Plan Explained Patient/Ditch Digger had this treatment plan explained to him/her as indicated by the signature below and has been given the opportunity to ask questions and make suggestions: Date: Patient/Ditch Digger Signature: Patient/Ditch Digger Decline: No Additional Comments Pt. daughter, Nicole, would like to be contacted for treatment team. OSCAR KEITH Sep 23, 2019 14:23
[2019-09-23 16:32] VITALS: BP 160/73
[2019-09-23] MEDS: QUEtiapine 25 MG TABLET. PO SCH ×2 (17:21→20:46)
[2019-09-23] MEDS: ATORVASTATIN CALCIUM 20 MG TABLET PO SCH (20:46)
[2019-09-23] MEDS: MAGNESIUM HYDROXIDE 2,400 MG/30 ML ORAL.SUSP. PO SCH (20:46)
[2019-09-23] MEDS: MIRTAZAPINE 15 MG TABLET PO SCH (20:46)
[2019-09-23] MEDS: LACTOBACILLUS RHAMNOSUS GG 1 CAPSULE. PO SCH (20:48)
--- NOTE | 2019-09-23 21:47 | PDOC ---
Exam Note: Pramod Note: Please also refer to the separate dictated note~for this date of service dictated separately. Discussed the patient with Nursing staff reviewed the chart.~Reviewed interim history and current functioning. Reviewed vital signs,~Labs/ Radiology~and current medications noted below. Continue current treatment with the changes noted in the dictated addendum note Assessment: Vital Signs/I&O: Vital Signs Date Time Temp Pulse Resp B/P (MAP) Pulse Ox O2 Delivery O2 Flow Rate FiO2 09/23/19 17:18 78 160/73 09/23/19 16:32 98.0 16 95 I & O 09/22/19 09/22/19 09/23/19 15:00 23:00 07:00 Intake Total 360 ml Balance 360 ml Labs: Laboratory Tests Test 09/23/19 07:35 09/23/19 11:57 09/23/19 17:18 09/23/19 19:53 Glucose (Fingerstick) 120 mg/dL (70-99) H 116 mg/dL (70-99) H 145 mg/dL (70-99) H 146 mg/dL (70-99) H Current Medications: Meds: Current Medications Medications (Trade) Dose Ordered Sig/Fatemeh Route PRN Reason Start Time Stop Time Status Last Admin Dose Admin Metformin HCl (Glucophage) 500 mg BIDWMEALS PO 09/23/19 08:00 09/23/19 17:17 Vitamin D (Vitamin D3) 3,000 unit DAILY PO 09/23/19 09:00 09/23/19 09:11 Lisinopril (Prinivil) 40 mg DAILY PO 09/23/19 09:00 09/23/19 09:10 Zinc Oxide (Zinc Oxide 20% Topical) 1 layne BID TP 09/23/19 09:00 09/23/19 09:00 Quetiapine Fumarate (SEROquel) 12.5 mg 1700 PO 09/23/19 17:00 09/23/19 17:21 Sertraline HCl (Zoloft) 50 mg DAILY PO 09/23/19 09:00 09/23/19 09:11 Lactobacillus Rhamnosus (Culturelle) 1 cap BID PO 09/23/19 21:00 09/23/19 20:48 I have reviewed the current psychotropics carefully including drug interactions. Risk benefit ratio favors no change other than as noted in my dictated progress note. Diagnosis: Problems: (1) Major neurocognitive disorder (2) Anxiety disorder (3) Dementia, vascular, with delusions (4) Dementia, vascular, with depression (5) Dementia in Alzheimer's disease with delusions (6) Dementia in Alzheimer's disease with depression (7) Impulse control disorder CHETAN VARGAS MD Sep 23, 2019 21:46
[2019-09-24 06:25] VITALS: BP 166/83
[2019-09-24] MEDS: CARVEDILOL 12.5 MG TABLET PO SCH ×2 (08:30→17:01)
[2019-09-24] MEDS: CEPHALEXIN 250 MG CAPSULE PO SCH ×4 (08:30→21:08)
[2019-09-24] MEDS: CHOLECALCIFEROL (VITAMIN D3) 1,000 UNIT TABLET PO SCH (08:30)
[2019-09-24] MEDS: SERTRALINE 50 MG TABLET. PO SCH (08:30)
[2019-09-24] MEDS: metFORMIN 500 MG TABLET PO SCH ×2 (08:30→17:01)
[2019-09-24] MEDS: DULoxetine HCL 20 MG CAPSULE.DR PO SCH (08:30)
[2019-09-24] MEDS: APIXABAN 5 MG TABLET. PO SCH ×2 (08:31→21:08)
[2019-09-24] MEDS: LACTOBACILLUS RHAMNOSUS GG 1 CAPSULE. PO SCH ×2 (08:31→21:08)
[2019-09-24] MEDS: MEMANTINE 10 MG TABLET. PO SCH ×2 (08:31→21:08)
[2019-09-24] MEDS: LISINOPRIL 20 MG TABLET PO SCH (08:31)
[2019-09-24] MEDS: METHYL SALICYLATE/MENTHOL TOPICAL OINTMENT 57GM TUBE. TP SCH ×3 (08:32→21:00)
[2019-09-24] MEDS: ZINC OXIDE 20% TOPICAL OINTMENT 28GM TUBE. TP SCH ×2 (08:32→21:00)
[2019-09-24] MEDS: FUROSEMIDE 80 MG TABLET PO SCH (12:37)
[2019-09-24] MEDS: POTASSIUM CHLORIDE 20 MEQ TABLET.ER. PO SCH (12:38)
[2019-09-24 16:00] VITALS: BP 153/73
[2019-09-24] MEDS: QUEtiapine 25 MG TABLET. PO SCH ×2 (17:01→21:08)
--- NOTE | 2019-09-24 17:30 | HP ---
ADMIT DATE: 09/23/2019 PSYCHIATRIC ADMISSION HISTORY AND EVALUATION This late entry 09/23/2019 covers elements not covered in my initial note. SUBJECTIVE: I met with the patient evening of 09/23/2019, previously discussed with nursing staff and policy service coordinator. IDENTIFYING DATA: The patient is a 74-year-old male who returns back to us from [facility] floor where he was transferred for medical stabilization while he was on the [facility] from [facility]. Once he is medically stable, he remained confused, but made statements that he was thinking about killing himself. When the metal silverware was removed by nursing staff from his room, the patient stated "you can use plastic, you just have to push harder." The patient was deemed a potential danger to himself and referred for inpatient psychiatric stabilization. CHIEF COMPLAINT: "Yes, I get depressed." HISTORY OF PRESENT ILLNESS: The patient has a history of dementia, early Alzheimer, vascular. He has been at the prison recently placed by his daughter, but he resents this. He has been getting more depressed as a consequence of this with sleep and appetite disturbance and the suicidal ideation, which initially prompted this admission. At that time, he was also expressing homicidal ideation against his daughter for placing up at the prison, but he denies any homicidal ideation currently. No active symptoms of bipolar disorder or psychotic symptoms. PAST PSYCHIATRIC HISTORY: As above. MEDICAL HISTORY: Diabetes mellitus, hypertension, atrial fibrillation, status post sepsis, history of cataracts, cellulitis left lower extremity. CODE STATUS: Full code. DRUG ALLERGIES: Negative. ACCU-CHEKS: Before meals and at bedtime. DIET: Regular, diabetic, takes medications whole. Ambulates with a walker. CURRENT PSYCHOTROPICS: Namenda 10 mg b.i.d., Seroquel 12.5 mg at 1700 and 25 mg at bedtime, Remeron 15 mg at bedtime, trazodone 50 mg at bedtime p.r.n., Zyprexa p.r.n. FAMILY HISTORY: Noncontributory. SOCIAL HISTORY: No alcohol, drug abuse, physical, sexual or elder abuse. He is not known to be a perpetrator. REACTION TO HOSPITALIZATION: The patient accepting of it. ASSETS: Supportive family, stable living at the prison. MENTAL STATUS EXAMINATION: The patient was seen individually evening of 09/23/2019. He is oriented to himself and situation. Speech has some latency, coherent. Abstraction fair, computation impaired, language function intact, attention span short. Mood is depressed, anxious. Memory is impaired, though he is aware of where he is and who the president is. No active suicidal or homicidal ideation. LABORATORY DATA: Reviewed. IMPRESSION: Major neurocognitive disorder, probably Alzheimer, vascular with depression; impulse control disorder; anxiety disorder, unspecified. Rest unchanged from above. PLAN: Admit to Geropsychiatry Unit at [facility]. I will see the patient daily individually from a psychiatric standpoint. Medical followup per Dr. Lester/Dr. Watson. Continue the patient on his current psychotropics. Start him on Cymbalta 20 mg daily. Make further adjustments as clinically indicated. Estimated length of stay 10-12 days. DISPOSITION: Plans back to prison when stable. CHETAN VARGAS MD DR: ROSALIND/renetta JOB#: [id number] / [id number]
--- NOTE | 2019-09-24 18:34 | CONS ---
DATE OF CONSULTATION: 09/24/2019 ATTENDING PHYSICIAN: Dr. Monsivais. CHIEF COMPLAINT: We are asked to see this patient for medical consultation. HISTORY OF PRESENT ILLNESS: The patient is a 74-year-old gentleman sent here from the [facility] system for memory issues. He has a documented diagnosis of vascular dementia, neurocognitive disorder, anxiety with delusions. He also has impulse control disorder. MEDICAL ISSUES: Include chronic anticoagulation as well as cellulitis in his legs. He does drink quite a bit of water. He is on medication, which can cause dry mouth. He is also diabetic. CURRENT MEDICINES: Include Tylenol, Mylanta, Eliquis, calcium, Coreg, Keflex, Cymbalta, lactobacillus, Prinivil, magnesium hydroxide, Namenda, Glucophage, Remeron, multi-ingredient ointment, nystatin, Zyprexa Zydis, MiraLax, Seroquel, Zoloft, trazodone, vitamin D, and zinc oxide. ALLERGIES: He has no recorded drug allergies. SOCIAL HISTORY: He is a nonsmoker, nondrinker. 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 FAMILY HISTORY: Unobtainable. REVIEW OF SYSTEMS: Significant for chronic leg swelling. He has difficulty walking. He has some degenerative arthritis. All other systems reviewed and determined to be negative. PHYSICAL EXAMINATION: GENERAL: When I saw him, this is a pleasant gentleman. INITIAL VITAL SIGNS: Showed a blood pressure 134/56, pulse is 78 and regular. He was afebrile, oxygen saturation adequate on room air. HEENT: Head is without trauma. Pupils are reactive. Sclerae nonicteric. The oropharynx is clear. NECK: Supple, no bruits identified. LUNGS: Otherwise clear. CARDIOVASCULAR: Showed regular heart tones. No obvious gallops. Peripheral pulses are palpable and full. ABDOMEN: Obese, protuberant. No organomegaly. Bowel sounds are normoactive. EXTREMITIES: Show 4+ edema extending all the way up to his thighs. There is weeping edema and localized cellulitis consistent with stasis dermatitis. NEUROLOGIC: Focally intact. Gait a bit off from his leg swelling, but he is fully ambulatory without any assistance. LABORATORY DATA: I see blood sugars going back to last 2 days and they are well controlled in the low 100 range. ASSESSMENT: 1. This 74-year-old gentleman has vascular dementia. He is sent here for adjustment of medication. 2. He has a symptomatic stasis dermatitis as well as significant peripheral edema in both ankles. I estimate probably 20 pounds of extra third space fluids. 3. Essential hypertension. 4. Type 2 diabetes. 5. Chronic anticoagulation, on Eliquis. RECOMMENDATIONS: 1. I recommend that we start him on Lasix 80 mg p.o. daily. 2. Potassium supplementation in the form of K-Dur. 3. Daily chemistries to monitor his electrolytes. 4. Daily weights to be recorded to monitor his diuresis. 5. He should be on a 1200 mL fluid restriction. I know this is difficult to accomplish and hopefully, he will remember to do so, but this is necessary to achieve a net diuresis and fluid loss. Thank you again for asking to see this patient in consultation. We should gladly follow along during his inpatient stay. ASHER PHILLIPS MD DR: ELZBIETA/renetta JOB#: [id number] / [id number] LUCERO Mcgarry MD
--- NOTE | 2019-09-24 18:53 | PN ---
DATE: 09/23/2019 PSYCHIATRIC PROGRESS NOTE This late entry 09/23/2019 covers elements not covered in my initial note. SUBJECTIVE: I met with the patient evening of 09/23/2019. Per CALEB Patel, the patient slept 9-3/4 hours previous night. DICTATION ENDS HERE MAN Winston VARGAS MD DR: ROSALIND/renetta JOB#: [id number] / [id number]
[2019-09-24] MEDS: MIRTAZAPINE 15 MG TABLET PO SCH (21:08)
[2019-09-24] MEDS: ATORVASTATIN CALCIUM 20 MG TABLET PO SCH (21:08)
[2019-09-24] MEDS: MAGNESIUM HYDROXIDE 2,400 MG/30 ML ORAL.SUSP. PO SCH (21:09)
--- NOTE | 2019-09-24 21:42 | PDOC ---
Exam Note: Pramod Note: Please also refer to the separate dictated note~for this date of service dictated separately.~Patient seen individually. Discussed the patient with Nursing staff reviewed the chart.~Reviewed interim history and current functioning. Reviewed vital signs,~Labs/ Radiology~and current medications noted below. Continue current treatment with the changes noted in the dictated addendum note Assessment: Vital Signs/I&O: Vital Signs Date Time Temp Pulse Resp B/P (MAP) Pulse Ox O2 Delivery O2 Flow Rate FiO2 09/24/19 17:01 70 153/73 09/24/19 16:00 98.2 16 98 I & O 09/23/19 09/23/19 09/24/19 15:00 23:00 07:00 Intake Total 240 ml 340 ml Balance 240 ml 340 ml Labs: Laboratory Tests Test 09/24/19 07:44 09/24/19 12:20 09/24/19 16:44 09/24/19 19:25 Glucose (Fingerstick) 117 mg/dL (70-99) H 177 mg/dL (70-99) H 119 mg/dL (70-99) H 134 mg/dL (70-99) H Current Medications: Meds: Current Medications Medications (Trade) Dose Ordered Sig/Fatemeh Route PRN Reason Start Time Stop Time Status Last Admin Dose Admin Duloxetine HCl (Cymbalta) 20 mg DAILY PO 09/24/19 09:00 09/24/19 08:30 Furosemide (Lasix) 80 mg DAILY PO 09/24/19 12:30 09/24/19 12:37 Potassium Chloride (Klor-Con) 20 meq DAILY PO 09/24/19 12:30 09/24/19 12:38 I have reviewed the current psychotropics carefully including drug interactions. Risk benefit ratio favors no change other than as noted in my dictated progress note. Diagnosis: Problems: (1) Major neurocognitive disorder (2) Anxiety disorder (3) Dementia, vascular, with delusions (4) Dementia, vascular, with depression (5) Dementia in Alzheimer's disease with delusions (6) Dementia in Alzheimer's disease with depression (7) Impulse control disorder CHETAN VARGAS MD Sep 24, 2019 21:42
[2019-09-25 05:47] VITALS: BP 160/84
[2019-09-25 06:27] LABS: CALCIUM 8.3 mg/dL (8.5-10.1); CREATININE 0.8 mg/dL (0.7-1.3); GFR 94.8; POTASSIUM 3.1 mmol/L (3.5-5.1)
[2019-09-25] MEDS ORDERED: POTASSIUM CHLORIDE 20 MEQ TABLET.ER. PO ONE (07:15)
[2019-09-25] MEDS: CEPHALEXIN 250 MG CAPSULE PO SCH ×4 (08:24→21:15)
[2019-09-25] MEDS: metFORMIN 500 MG TABLET PO SCH ×2 (08:24→17:32)
[2019-09-25] MEDS: CHOLECALCIFEROL (VITAMIN D3) 1,000 UNIT TABLET PO SCH (08:24)
[2019-09-25] MEDS: LACTOBACILLUS RHAMNOSUS GG 1 CAPSULE. PO SCH ×2 (08:24→21:15)
[2019-09-25] MEDS: CARVEDILOL 12.5 MG TABLET PO SCH ×2 (08:25→17:00)
[2019-09-25] MEDS: POTASSIUM CHLORIDE 20 MEQ TABLET.ER. PO SCH ×2 (08:25→21:14)
[2019-09-25] MEDS: LISINOPRIL 20 MG TABLET PO SCH (08:25)
[2019-09-25] MEDS: FUROSEMIDE 80 MG TABLET PO SCH (08:26)
[2019-09-25] MEDS: APIXABAN 5 MG TABLET. PO SCH ×2 (08:26→21:15)
[2019-09-25] MEDS: MEMANTINE 10 MG TABLET. PO SCH ×2 (08:26→21:14)
[2019-09-25] MEDS: SERTRALINE 50 MG TABLET. PO SCH (08:26)
[2019-09-25] MEDS: DULoxetine HCL 20 MG CAPSULE.DR PO SCH (08:26)
[2019-09-25] MEDS: ZINC OXIDE 20% TOPICAL OINTMENT 28GM TUBE. TP SCH ×2 (08:30→21:00)
[2019-09-25] MEDS: METHYL SALICYLATE/MENTHOL TOPICAL OINTMENT 57GM TUBE. TP SCH ×3 (09:00→21:16)
[2019-09-25 16:33] VITALS: BP 124/53
[2019-09-25] MEDS: QUEtiapine 25 MG TABLET. PO SCH ×2 (17:32→21:15)
--- NOTE | 2019-09-25 19:42 | PN ---
DATE: 09/24/2019 PSYCHIATRIC PROGRESS NOTE This late entry 09/24/2019 covers elements not covered in my initial note. SUBJECTIVE: I met with the patient in the evening. Per CALEB Patel, the patient slept 9-3/4 hours previous night. He is somewhat withdrawn to his room, compliant with medications. Denies suicidal ideation. REVIEW OF SYSTEMS: No CV, , pulmonary, eye system symptoms on review. MENTAL STATUS EXAM: Oriented to himself and situation. Speech coherent, has some latency. Abstraction fair, computation impaired, language function intact. Mood and affect withdrawn. LABORATORY DATA: Reviewed. IMPRESSION: Unchanged from initial note. PLAN: No change from initial note and he has been started on Cymbalta along with Zyprexa p.r.n. Remains on scheduled Seroquel, Namenda, Remeron and trazodone. MAN Winston VARGAS MD DR: ROSALIND/renetta JOB#: [id number] / [id number]
[2019-09-25] MEDS: ATORVASTATIN CALCIUM 20 MG TABLET PO SCH (21:14)
[2019-09-25] MEDS: MAGNESIUM HYDROXIDE 2,400 MG/30 ML ORAL.SUSP. PO SCH (21:15)
[2019-09-25] MEDS: MIRTAZAPINE 15 MG TABLET PO SCH (21:15)
--- NOTE | 2019-09-25 22:00 | PDOC ---
Exam Note: Pramod Note: Please also refer to the separate dictated note~for this date of service dictated separately.~Patient seen individually. Discussed the patient with Nursing staff reviewed the chart.~Reviewed interim history and current functioning. Reviewed vital signs,~Labs/ Radiology~and current medications noted below. Continue current treatment with the changes noted in the dictated addendum note Assessment: Vital Signs/I&O: Vital Signs Date Time Temp Pulse Resp B/P (MAP) Pulse Ox O2 Delivery O2 Flow Rate FiO2 09/25/19 17:00 67 124/53 09/25/19 16:33 97.4 18 96 I & O 09/24/19 09/24/19 09/25/19 15:00 23:00 07:00 Intake Total 720 ml 340 ml Balance 720 ml 340 ml Labs: Laboratory Tests Test 09/25/19 06:07 09/25/19 08:07 09/25/19 11:49 09/25/19 16:42 Sodium Level 147 mmol/L (136-145) H Potassium Level 3.1 mmol/L (3.5-5.1) L Chloride Level 107 mmol/L (98-107) Carbon Dioxide Level 33 mmol/L (21-32) H Anion Gap 7 (6-14) Blood Urea Nitrogen 7 mg/dL (8-26) L Creatinine 0.8 mg/dL (0.7-1.3) Estimated GFR (Cockcroft-Gault) 94.8 Glucose Level 120 mg/dL (70-99) H Calcium Level 8.3 mg/dL (8.5-10.1) L Glucose (Fingerstick) 109 mg/dL (70-99) H 141 mg/dL (70-99) H 127 mg/dL (70-99) H Test 09/25/19 19:16 Glucose (Fingerstick) 148 mg/dL (70-99) H Current Medications: Meds: Current Medications Medications (Trade) Dose Ordered Sig/Fatemeh Route PRN Reason Start Time Stop Time Status Last Admin Dose Admin Potassium Chloride (Klor-Con) 40 meq 1X ONCE PO 09/25/19 07:15 09/25/19 07:18 DC 09/25/19 08:29 Potassium Chloride (Klor-Con) 40 meq BID PO 09/25/19 21:00 09/25/19 21:14 I have reviewed the current psychotropics carefully including drug interactions. Risk benefit ratio favors no change other than as noted in my dictated progress note. Diagnosis: Problems: (1) Major neurocognitive disorder (2) Anxiety disorder (3) Dementia, vascular, with delusions (4) Dementia, vascular, with depression (5) Dementia in Alzheimer's disease with delusions (6) Dementia in Alzheimer's disease with depression (7) Impulse control disorder CHETAN VARGAS MD Sep 25, 2019 22:00
[2019-09-26 05:50] VITALS: BP 165/67
[2019-09-26 07:09] LABS: ALBUMIN 2.2 g/dL (3.4-5.0); ALBUMIN/GLOBULIN RATIO 0.6 (1.0-1.7); CREATININE 0.8 mg/dL (0.7-1.3); GFR 94.8; POTASSIUM 3.6 mmol/L (3.5-5.1); TOTAL BILIRUBIN 0.3 mg/dL (0.2-1.0); TOTAL PROTEIN 5.6 g/dL (6.4-8.2)
[2019-09-26] MEDS: MEMANTINE 10 MG TABLET. PO SCH ×2 (08:48→19:47)
[2019-09-26] MEDS: DULoxetine HCL 30 MG CAPSULE.DR PO SCH (08:48)
[2019-09-26] MEDS: APIXABAN 5 MG TABLET. PO SCH ×2 (08:48→19:48)
[2019-09-26] MEDS: SERTRALINE 50 MG TABLET. PO SCH (08:49)
[2019-09-26] MEDS: CHOLECALCIFEROL (VITAMIN D3) 1,000 UNIT TABLET PO SCH (08:49)
[2019-09-26] MEDS: POTASSIUM CHLORIDE 20 MEQ TABLET.ER. PO SCH ×2 (08:49→19:46)
[2019-09-26] MEDS: LACTOBACILLUS RHAMNOSUS GG 1 CAPSULE. PO SCH ×2 (08:49→19:46)
[2019-09-26] MEDS: CEPHALEXIN 250 MG CAPSULE PO SCH ×4 (08:49→19:46)
[2019-09-26] MEDS: metFORMIN 500 MG TABLET PO SCH ×2 (08:49→17:08)
[2019-09-26] MEDS: FUROSEMIDE 80 MG TABLET PO SCH (08:49)
[2019-09-26] MEDS: CARVEDILOL 12.5 MG TABLET PO SCH ×2 (08:50→17:09)
[2019-09-26] MEDS: ZINC OXIDE 20% TOPICAL OINTMENT 28GM TUBE. TP SCH (08:50)
[2019-09-26] MEDS: LISINOPRIL 20 MG TABLET PO SCH (08:50)
[2019-09-26] MEDS: DULoxetine HCL 20 MG CAPSULE.DR PO SCH (08:50)
[2019-09-26 16:00] VITALS: BP 162/79
[2019-09-26] MEDS: QUEtiapine 25 MG TABLET. PO SCH ×2 (17:09→19:47)
[2019-09-26] MEDS: MAGNESIUM HYDROXIDE 2,400 MG/30 ML ORAL.SUSP. PO SCH (19:46)
[2019-09-26] MEDS: ATORVASTATIN CALCIUM 20 MG TABLET PO SCH (19:47)
[2019-09-26] MEDS: MIRTAZAPINE 15 MG TABLET PO SCH (19:47)
--- NOTE | 2019-09-26 23:01 | PDOC ---
Exam Note: Pramod Note: Please also refer to the separate dictated note~for this date of service dictated separately.~Patient seen individually. Discussed the patient with Nursing staff reviewed the chart.~Reviewed interim history and current functioning. Reviewed vital signs,~Labs/ Radiology~and current medications noted below. Continue current treatment with the changes noted in the dictated addendum note Assessment: Vital Signs/I&O: Vital Signs Date Time Temp Pulse Resp B/P (MAP) Pulse Ox O2 Delivery O2 Flow Rate FiO2 09/26/19 17:09 72 162/79 09/26/19 16:00 98.3 18 95 I & O 09/25/19 09/25/19 09/26/19 15:00 23:00 07:00 Intake Total 600 ml 720 ml Balance 600 ml 720 ml Labs: Laboratory Tests Test 09/26/19 06:34 09/26/19 07:50 09/26/19 12:08 09/26/19 16:39 Sodium Level 145 mmol/L (136-145) Potassium Level 3.6 mmol/L (3.5-5.1) Chloride Level 107 mmol/L (98-107) Carbon Dioxide Level 32 mmol/L (21-32) Anion Gap 6 (6-14) Blood Urea Nitrogen 9 mg/dL (8-26) Creatinine 0.8 mg/dL (0.7-1.3) Estimated GFR (Cockcroft-Gault) 94.8 BUN/Creatinine Ratio 11 (6-20) Glucose Level 111 mg/dL (70-99) H Calcium Level 8.0 mg/dL (8.5-10.1) L Total Bilirubin 0.3 mg/dL (0.2-1.0) Aspartate Amino Transferase (AST) 24 U/L (15-37) Alanine Aminotransferase (ALT) 33 U/L (16-63) Alkaline Phosphatase 79 U/L (46-116) Total Protein 5.6 g/dL (6.4-8.2) L Albumin 2.2 g/dL (3.4-5.0) L Albumin/Globulin Ratio 0.6 (1.0-1.7) L Glucose (Fingerstick) 114 mg/dL (70-99) H 127 mg/dL (70-99) H 109 mg/dL (70-99) H Test 09/26/19 19:14 Glucose (Fingerstick) 143 mg/dL (70-99) H Current Medications: Meds: Current Medications Medications (Trade) Dose Ordered Sig/Fatemeh Route PRN Reason Start Time Stop Time Status Last Admin Dose Admin Duloxetine HCl (Cymbalta) 30 mg DAILY PO 09/26/19 09:00 09/26/19 08:48 I have reviewed the current psychotropics carefully including drug interactions. Risk benefit ratio favors no change other than as noted in my dictated progress note. Diagnosis: Problems: (1) Major neurocognitive disorder (2) Anxiety disorder (3) Dementia, vascular, with delusions (4) Dementia, vascular, with depression (5) Dementia in Alzheimer's disease with delusions (6) Dementia in Alzheimer's disease with depression (7) Impulse control disorder CHETAN VARGAS MD Sep 26, 2019 23:01
[2019-09-27 06:23] VITALS: BP 170/61
[2019-09-27 07:09] LABS: CALCIUM 8.7 mg/dL (8.5-10.1); CREATININE 0.9 mg/dL (0.7-1.3); GFR 82.7
[2019-09-27] MEDS: SERTRALINE 50 MG TABLET. PO SCH (07:59)
[2019-09-27] MEDS: DULoxetine HCL 20 MG CAPSULE.DR PO SCH (07:59)
[2019-09-27] MEDS: MEMANTINE 10 MG TABLET. PO SCH ×2 (07:59→20:48)
[2019-09-27] MEDS: FUROSEMIDE 80 MG TABLET PO SCH (07:59)
[2019-09-27] MEDS: DULoxetine HCL 30 MG CAPSULE.DR PO SCH (07:59)
[2019-09-27] MEDS: LACTOBACILLUS RHAMNOSUS GG 1 CAPSULE. PO SCH ×2 (07:59→20:48)
[2019-09-27] MEDS: APIXABAN 5 MG TABLET. PO SCH ×2 (07:59→20:48)
[2019-09-27] MEDS: CEPHALEXIN 250 MG CAPSULE PO SCH ×4 (08:00→20:48)
[2019-09-27] MEDS: POTASSIUM CHLORIDE 20 MEQ TABLET.ER. PO SCH ×2 (08:00→20:48)
[2019-09-27] MEDS: CARVEDILOL 12.5 MG TABLET PO SCH ×2 (08:00→17:00)
[2019-09-27] MEDS: metFORMIN 500 MG TABLET PO SCH ×2 (08:00→17:00)
[2019-09-27] MEDS: CHOLECALCIFEROL (VITAMIN D3) 1,000 UNIT TABLET PO SCH (08:01)
[2019-09-27] MEDS: LISINOPRIL 20 MG TABLET PO SCH (08:01)
[2019-09-27 16:30] VITALS: BP 132/69
[2019-09-27] MEDS: QUEtiapine 25 MG TABLET. PO SCH ×2 (17:00→20:49)
--- NOTE | 2019-09-27 17:28 | PN ---
DATE: 09/26/2019 PSYCHIATRIC PROGRESS NOTE This late entry 09/26/2019 covers elements not covered in my initial note. SUBJECTIVE: I met with the patient evening of 09/26/2019 and staffed at a treatment team meeting with the entire team in the morning and the patient's daughter, Nicole attended the conference. The patient is sleeping about 7-1/4 hours. Still somewhat withdrawn, depressed. Denies suicidal ideation. REVIEW OF SYSTEMS: No CV, , pulmonary, eye system symptoms on review. MENTAL STATUS EXAM: Oriented to himself and situation. Speech has some latency, coherent. Abstraction fair, computation impaired, language function intact. Mood and affect withdrawn. LABORATORY DATA: Reviewed. IMPRESSION: Unchanged from initial note. PLAN: No change from initial note. MAN Winston VARGAS MD DR: ROSALIND/renetta JOB#: [id number] / [id number]
[2019-09-27] MEDS: MIRTAZAPINE 15 MG TABLET PO SCH (20:48)
[2019-09-27] MEDS: MAGNESIUM HYDROXIDE 2,400 MG/30 ML ORAL.SUSP. PO SCH (20:48)
[2019-09-27] MEDS: ATORVASTATIN CALCIUM 20 MG TABLET PO SCH (20:48)
--- NOTE | 2019-09-27 22:50 | PDOC ---
Exam Note: Pramod Note: Please also refer to the separate dictated note~for this date of service dictated separately. Discussed the patient with Nursing staff reviewed the chart.~Reviewed interim history and current functioning. Reviewed vital signs,~Labs/ Radiology~and current medications noted below. Continue current treatment with the changes noted in the dictated addendum note Assessment: Vital Signs/I&O: Vital Signs Date Time Temp Pulse Resp B/P (MAP) Pulse Ox O2 Delivery O2 Flow Rate FiO2 09/27/19 17:00 69 132/69 09/27/19 16:30 98.8 16 92 09/27/19 06:23 Room Air I & O 09/26/19 09/26/19 09/27/19 15:00 23:00 07:00 Intake Total 960 ml 600 ml Balance 960 ml 600 ml Labs: Laboratory Tests Test 09/27/19 06:30 09/27/19 07:37 09/27/19 12:08 09/27/19 17:09 Sodium Level 140 mmol/L (136-145) Potassium Level 4.0 mmol/L (3.5-5.1) Chloride Level 104 mmol/L (98-107) Carbon Dioxide Level 33 mmol/L (21-32) H Anion Gap 3 (6-14) L Blood Urea Nitrogen 8 mg/dL (8-26) Creatinine 0.9 mg/dL (0.7-1.3) Estimated GFR (Cockcroft-Gault) 82.7 Glucose Level 115 mg/dL (70-99) H Calcium Level 8.7 mg/dL (8.5-10.1) Glucose (Fingerstick) 114 mg/dL (70-99) H 117 mg/dL (70-99) H 135 mg/dL (70-99) H Test 09/27/19 20:03 Glucose (Fingerstick) 216 mg/dL (70-99) H Current Medications: I have reviewed the current psychotropics carefully including drug interactions. Risk benefit ratio favors no change other than as noted in my dictated progress note. Diagnosis: Problems: (1) Major neurocognitive disorder (2) Anxiety disorder (3) Dementia, vascular, with delusions (4) Dementia, vascular, with depression (5) Dementia in Alzheimer's disease with delusions (6) Dementia in Alzheimer's disease with depression (7) Impulse control disorder CHETAN VARGAS MD Sep 27, 2019 22:50
[2019-09-28 06:49] VITALS: BP 127/75
[2019-09-28] MEDS: CEPHALEXIN 250 MG CAPSULE PO SCH ×4 (08:28→20:50)
[2019-09-28] MEDS: DULoxetine HCL 30 MG CAPSULE.DR PO SCH (08:28)
[2019-09-28] MEDS: SERTRALINE 50 MG TABLET. PO SCH (08:28)
[2019-09-28] MEDS: CARVEDILOL 12.5 MG TABLET PO SCH ×2 (08:28→17:39)
[2019-09-28] MEDS: LACTOBACILLUS RHAMNOSUS GG 1 CAPSULE. PO SCH ×2 (08:28→20:50)
[2019-09-28] MEDS: APIXABAN 5 MG TABLET. PO SCH ×2 (08:28→20:50)
[2019-09-28] MEDS: metFORMIN 500 MG TABLET PO SCH ×2 (08:29→17:39)
[2019-09-28] MEDS: LISINOPRIL 20 MG TABLET PO SCH (08:29)
[2019-09-28] MEDS: DULoxetine HCL 20 MG CAPSULE.DR PO SCH (08:29)
[2019-09-28] MEDS: MEMANTINE 10 MG TABLET. PO SCH ×2 (08:29→20:50)
[2019-09-28] MEDS: POTASSIUM CHLORIDE 20 MEQ TABLET.ER. PO SCH ×2 (08:30→20:50)
[2019-09-28] MEDS: FUROSEMIDE 80 MG TABLET PO SCH (08:30)
[2019-09-28] MEDS: CHOLECALCIFEROL (VITAMIN D3) 1,000 UNIT TABLET PO SCH (08:30)
[2019-09-28 10:35] LABS: BASO # 0.1 x10^3/uL (0.0-0.2); BASO % 1 % (0-3); EOS # 0.1 x10^3/uL (0.0-0.7); EOS % 1 % (0-3); HEMATOCRIT 36.7 % (39.0-53.0); LYMPH % 13 % (24-48); MEAN CORPUSCULAR HEMOGLOBIN 29 pg (25-35); MEAN CORPUSCULAR HGB CONC 33 g/dL (31-37); MEAN CORPUSCULAR VOLUME 88 fL (79-100); MONO # 0.4 x10^3/uL (0.0-1.1); MONO % 6 % (0-9); NEUT % 80 % (31-73); PLATELET COUNT 249 x10^3/uL (140-400); RED BLOOD COUNT 4.19 x10^6/uL (4.30-5.70); RED CELL DISTRIBUTION WIDTH 15.1 % (11.5-14.5); WHITE BLOOD COUNT 7.6 x10^3/uL (4.0-11.0)
[2019-09-28 10:42] LABS: GFR 73.2; POTASSIUM 4.8 mmol/L (3.5-5.1)
[2019-09-28 16:04] VITALS: BP 111/60
[2019-09-28] MEDS: QUEtiapine 25 MG TABLET. PO SCH ×2 (17:40→20:50)
[2019-09-28] MEDS: ATORVASTATIN CALCIUM 20 MG TABLET PO SCH (20:50)
[2019-09-28] MEDS: MAGNESIUM HYDROXIDE 2,400 MG/30 ML ORAL.SUSP. PO SCH (20:50)
[2019-09-28] MEDS: MIRTAZAPINE 15 MG TABLET PO SCH (20:50)
--- NOTE | 2019-09-28 22:39 | PDOC ---
Exam Note: Pramod Note: Please also refer to the separate dictated note~for this date of service dictated separately. Discussed the patient with Nursing staff reviewed the chart.~Reviewed interim history and current functioning. Reviewed vital signs,~Labs/ Radiology~and current medications noted below. Continue current treatment with the changes noted in the dictated addendum note Assessment: Vital Signs/I&O: Vital Signs Date Time Temp Pulse Resp B/P (MAP) Pulse Ox O2 Delivery O2 Flow Rate FiO2 09/28/19 17:39 66 111/60 09/28/19 16:04 97.9 16 95 09/28/19 06:49 Room Air I & O 09/27/19 09/27/19 09/28/19 15:00 23:00 07:00 Intake Total 720 ml 340 ml Balance 720 ml 340 ml Labs: Laboratory Tests Test 09/28/19 07:39 09/28/19 09:55 09/28/19 11:52 09/28/19 17:03 Glucose (Fingerstick) 112 mg/dL (70-99) H 145 mg/dL (70-99) H 118 mg/dL (70-99) H White Blood Count 7.6 x10^3/uL (4.0-11.0) Red Blood Count 4.19 x10^6/uL (4.30-5.70) L Hemoglobin 12.0 g/dL (13.0-17.5) L Hematocrit 36.7 % (39.0-53.0) L Mean Corpuscular Volume 88 fL (79-100) Mean Corpuscular Hemoglobin 29 pg (25-35) Mean Corpuscular Hemoglobin Concent 33 g/dL (31-37) Red Cell Distribution Width 15.1 % (11.5-14.5) H Platelet Count 249 x10^3/uL (140-400) Neutrophils (%) (Auto) 80 % (31-73) H Lymphocytes (%) (Auto) 13 % (24-48) L Monocytes (%) (Auto) 6 % (0-9) Eosinophils (%) (Auto) 1 % (0-3) Basophils (%) (Auto) 1 % (0-3) Neutrophils # (Auto) 6.0 x10^3uL (1.8-7.7) Lymphocytes # (Auto) 1.0 x10^3/uL (1.0-4.8) Monocytes # (Auto) 0.4 x10^3/uL (0.0-1.1) Eosinophils # (Auto) 0.1 x10^3/uL (0.0-0.7) Basophils # (Auto) 0.1 x10^3/uL (0.0-0.2) Sodium Level 138 mmol/L (136-145) Potassium Level 4.8 mmol/L (3.5-5.1) Chloride Level 102 mmol/L (98-107) Carbon Dioxide Level 32 mmol/L (21-32) Anion Gap 4 (6-14) L Blood Urea Nitrogen 10 mg/dL (8-26) Creatinine 1.0 mg/dL (0.7-1.3) Estimated GFR (Cockcroft-Gault) 73.2 Glucose Level 164 mg/dL (70-99) H Calcium Level 9.0 mg/dL (8.5-10.1) Test 09/28/19 19:27 Glucose (Fingerstick) 148 mg/dL (70-99) H Current Medications: I have reviewed the current psychotropics carefully including drug interactions. Risk benefit ratio favors no change other than as noted in my dictated progress note. Diagnosis: Problems: (1) Major neurocognitive disorder (2) Anxiety disorder (3) Dementia, vascular, with delusions (4) Dementia, vascular, with depression (5) Dementia in Alzheimer's disease with delusions (6) Dementia in Alzheimer's disease with depression (7) Impulse control disorder CHETAN VARGAS MD Sep 28, 2019 22:39
[2019-09-29 06:10] VITALS: BP 154/52
[2019-09-29] MEDS: MEMANTINE 10 MG TABLET. PO SCH ×2 (08:00→20:42)
[2019-09-29] MEDS: CHOLECALCIFEROL (VITAMIN D3) 1,000 UNIT TABLET PO SCH (08:00)
[2019-09-29] MEDS: DULoxetine HCL 20 MG CAPSULE.DR PO SCH (08:00)
[2019-09-29] MEDS: SERTRALINE 50 MG TABLET. PO SCH (08:00)
[2019-09-29] MEDS: DULoxetine HCL 30 MG CAPSULE.DR PO SCH (08:00)
[2019-09-29] MEDS: LACTOBACILLUS RHAMNOSUS GG 1 CAPSULE. PO SCH ×2 (08:00→20:42)
[2019-09-29] MEDS: LISINOPRIL 20 MG TABLET PO SCH (08:01)
[2019-09-29] MEDS: POTASSIUM CHLORIDE 20 MEQ TABLET.ER. PO SCH ×2 (08:01→19:46)
[2019-09-29] MEDS: CEPHALEXIN 250 MG CAPSULE PO SCH ×4 (08:01→20:42)
[2019-09-29] MEDS: APIXABAN 5 MG TABLET. PO SCH ×2 (08:01→20:42)
[2019-09-29] MEDS: FUROSEMIDE 80 MG TABLET PO SCH (08:02)
[2019-09-29] MEDS: CARVEDILOL 12.5 MG TABLET PO SCH ×2 (08:02→17:00)
[2019-09-29] MEDS: metFORMIN 500 MG TABLET PO SCH ×2 (08:02→18:22)
[2019-09-29 12:06] LABS: CALCIUM 9.1 mg/dL (8.5-10.1); CREATININE 1.2 mg/dL (0.7-1.3); GFR 59.3; POTASSIUM 4.9 mmol/L (3.5-5.1)
[2019-09-29 16:31] VITALS: BP 101/60
[2019-09-29] MEDS: QUEtiapine 25 MG TABLET. PO SCH ×2 (18:23→20:42)
[2019-09-29] MEDS: MAGNESIUM HYDROXIDE 2,400 MG/30 ML ORAL.SUSP. PO SCH (20:41)
[2019-09-29] MEDS: ATORVASTATIN CALCIUM 20 MG TABLET PO SCH (20:41)
[2019-09-29] MEDS: MIRTAZAPINE 15 MG TABLET PO SCH (20:42)
--- NOTE | 2019-09-29 21:46 | PDOC ---
Exam Note: Pramod Note: Please also refer to the separate dictated note~for this date of service dictated separately. Discussed the patient with Nursing staff reviewed the chart.~Reviewed interim history and current functioning. Reviewed vital signs,~Labs/ Radiology~and current medications noted below. Continue current treatment with the changes noted in the dictated addendum note Assessment: Vital Signs/I&O: Vital Signs Date Time Temp Pulse Resp B/P (MAP) Pulse Ox O2 Delivery O2 Flow Rate FiO2 09/29/19 17:00 69 101/60 09/29/19 16:31 98.2 20 98 Room Air I & O 09/28/19 09/28/19 09/29/19 15:00 23:00 07:00 Intake Total 1220 ml 580 ml Balance 1220 ml 580 ml Labs: Laboratory Tests Test 09/29/19 07:36 09/29/19 10:45 09/29/19 19:48 Glucose (Fingerstick) 122 mg/dL (70-99) H 132 mg/dL (70-99) H Sodium Level 138 mmol/L (136-145) Potassium Level 4.9 mmol/L (3.5-5.1) Chloride Level 101 mmol/L (98-107) Carbon Dioxide Level 30 mmol/L (21-32) Anion Gap 7 (6-14) Blood Urea Nitrogen 18 mg/dL (8-26) Creatinine 1.2 mg/dL (0.7-1.3) Estimated GFR (Cockcroft-Gault) 59.3 Glucose Level 196 mg/dL (70-99) H Calcium Level 9.1 mg/dL (8.5-10.1) Current Medications: I have reviewed the current psychotropics carefully including drug interactions. Risk benefit ratio favors no change other than as noted in my dictated progress note. Diagnosis: Problems: (1) Major neurocognitive disorder (2) Anxiety disorder (3) Dementia, vascular, with delusions (4) Dementia, vascular, with depression (5) Dementia in Alzheimer's disease with delusions (6) Dementia in Alzheimer's disease with depression (7) Impulse control disorder CHETAN VARGAS MD Sep 29, 2019 21:46
[2019-09-30 05:35] VITALS: BP 114/62
[2019-09-30] MEDS: DULoxetine HCL 20 MG CAPSULE.DR PO SCH (08:59)
[2019-09-30] MEDS: LACTOBACILLUS RHAMNOSUS GG 1 CAPSULE. PO SCH ×2 (09:00→20:20)
[2019-09-30] MEDS: CARVEDILOL 12.5 MG TABLET PO SCH ×2 (09:00→17:00)
[2019-09-30] MEDS: LISINOPRIL 20 MG TABLET PO SCH (09:01)
[2019-09-30] MEDS: APIXABAN 5 MG TABLET. PO SCH ×2 (09:02→20:21)
[2019-09-30] MEDS: MEMANTINE 10 MG TABLET. PO SCH ×2 (09:02→20:20)
[2019-09-30] MEDS: SERTRALINE 50 MG TABLET. PO SCH (09:02)
[2019-09-30] MEDS: CEPHALEXIN 250 MG CAPSULE PO SCH ×4 (09:02→20:21)
[2019-09-30] MEDS: CHOLECALCIFEROL (VITAMIN D3) 1,000 UNIT TABLET PO SCH (09:02)
[2019-09-30] MEDS: FUROSEMIDE 80 MG TABLET PO SCH (09:02)
[2019-09-30] MEDS: DULoxetine HCL 30 MG CAPSULE.DR PO SCH (09:02)
[2019-09-30] MEDS: metFORMIN 500 MG TABLET PO SCH ×2 (09:02→17:01)
[2019-09-30] MEDS: POTASSIUM CHLORIDE 20 MEQ TABLET.ER. PO SCH ×2 (09:05→20:21)
[2019-09-30] MEDS ORDERED: POTASSIUM CHLORIDE 20 MEQ TABLET.ER. PO SCH (14:30)
[2019-09-30 16:21] VITALS: BP 106/56
[2019-09-30] MEDS: QUEtiapine 25 MG TABLET. PO SCH ×2 (17:02→20:20)
[2019-09-30] MEDS: MIRTAZAPINE 15 MG TABLET PO SCH (20:20)
[2019-09-30] MEDS: MAGNESIUM HYDROXIDE 2,400 MG/30 ML ORAL.SUSP. PO SCH (20:20)
[2019-09-30] MEDS: ATORVASTATIN CALCIUM 20 MG TABLET PO SCH (20:21)
--- NOTE | 2019-09-30 21:47 | PDOC ---
Exam Note: Pramod Note: Please also refer to the separate dictated note~for this date of service dictated separately. Discussed the patient with Nursing staff reviewed the chart.~Reviewed interim history and current functioning. Reviewed vital signs,~Labs/ Radiology~and current medications noted below. Continue current treatment with the changes noted in the dictated addendum note Assessment: Vital Signs/I&O: Vital Signs Date Time Temp Pulse Resp B/P (MAP) Pulse Ox O2 Delivery O2 Flow Rate FiO2 09/30/19 16:21 98.4 63 16 106/56 (73) 97 09/29/19 16:31 Room Air I & O 09/29/19 09/29/19 09/30/19 14:59 22:59 06:59 Intake Total 840 ml 420 ml Balance 840 ml 420 ml Labs: Laboratory Tests Test 09/30/19 08:06 09/30/19 19:55 Glucose (Fingerstick) 108 mg/dL (70-99) H 106 mg/dL (70-99) H Current Medications: Meds: Current Medications Medications (Trade) Dose Ordered Sig/Fatemeh Route PRN Reason Start Time Stop Time Status Last Admin Dose Admin Potassium Chloride (Klor-Con) 20 meq BID PO 09/30/19 21:00 09/30/19 20:21 I have reviewed the current psychotropics carefully including drug interactions. Risk benefit ratio favors no change other than as noted in my dictated progress note. Diagnosis: Problems: (1) Major neurocognitive disorder (2) Anxiety disorder (3) Dementia, vascular, with delusions (4) Dementia, vascular, with depression (5) Dementia in Alzheimer's disease with delusions (6) Dementia in Alzheimer's disease with depression (7) Impulse control disorder CHETAN VARGAS MD Sep 30, 2019 21:47
[2019-10-01 05:46] VITALS: BP 116/64
[2019-10-01] MEDS: CHOLECALCIFEROL (VITAMIN D3) 1,000 UNIT TABLET PO SCH (08:19)
[2019-10-01] MEDS: LISINOPRIL 20 MG TABLET PO SCH (08:20)
[2019-10-01] MEDS: CARVEDILOL 12.5 MG TABLET PO SCH ×2 (08:21→17:13)
[2019-10-01] MEDS: APIXABAN 5 MG TABLET. PO SCH ×2 (08:21→20:13)
[2019-10-01] MEDS: MEMANTINE 10 MG TABLET. PO SCH ×2 (08:22→20:13)
[2019-10-01] MEDS: FUROSEMIDE 80 MG TABLET PO SCH (08:22)
[2019-10-01] MEDS: DULoxetine HCL 20 MG CAPSULE.DR PO SCH (08:22)
[2019-10-01] MEDS: LACTOBACILLUS RHAMNOSUS GG 1 CAPSULE. PO SCH ×2 (08:22→20:13)
[2019-10-01] MEDS: CEPHALEXIN 250 MG CAPSULE PO SCH ×4 (08:22→20:13)
[2019-10-01] MEDS: DULoxetine HCL 30 MG CAPSULE.DR PO SCH (08:22)
[2019-10-01] MEDS: metFORMIN 500 MG TABLET PO SCH ×2 (08:23→17:12)
[2019-10-01] MEDS: POTASSIUM CHLORIDE 20 MEQ TABLET.ER. PO SCH ×2 (08:23→20:13)
[2019-10-01] MEDS: SERTRALINE 50 MG TABLET. PO SCH (08:23)
[2019-10-01 15:38] VITALS: BP 100/53
[2019-10-01] MEDS: QUEtiapine 25 MG TABLET. PO SCH ×2 (17:12→20:13)
[2019-10-01] MEDS: MIRTAZAPINE 15 MG TABLET PO SCH (20:12)
[2019-10-01] MEDS: MAGNESIUM HYDROXIDE 2,400 MG/30 ML ORAL.SUSP. PO SCH (20:13)
[2019-10-01] MEDS: ATORVASTATIN CALCIUM 20 MG TABLET PO SCH (20:13)
[2019-10-02 06:03] VITALS: BP 120/69
--- NOTE | 2019-10-02 06:39 | PDOC ---
Exam Note: Pramod Note: This is a late entry for 09/27/2019. Currently, the unit is shutdown for any admissions and discharges as directed by the Centers for Disease Control (CDC) and the [facility] ([facility]) because of Coronavirus (COVID-19) exposure on the unit. S/O: This is a Telepsychiatry Progress Note. This note covers elements not covered in my initial note. The patient was reviewed with nursing staff, reviewed the chart and TeleHealth Services provided for this date for the patient. Nursing report was from CALEB Mix. He has been coming out for his meals. He has not been given shoes with strings and gets upset about this. He was suicidal in the past and that is the reason this has been removed from him but he has difficulty understanding this. ROS: No CV, , Pulmonary system symptoms on review. MSE: Oriented to himself and situation. Speech has some latency. Often response is monosyllabic, coherent. Abstraction is fair. Computation is impaired. Language function is intact. Mood and affect somewhat withdrawn, still depressed. Labs: Reviewed. Imp: Major neurocognitive disorder Alzheimer, vascular with depression. Major depressive disorder. Rest unchanged from initial note. Plan: No change from initial note. Assessment: Vital Signs/I&O: Vital Signs Date Time Temp Pulse Resp B/P (MAP) Pulse Ox O2 Delivery O2 Flow Rate FiO2 10/02/19 06:03 97.6 64 18 120/69 (86) 96 09/29/19 16:31 Room Air I & O 10/01/19 10/01/19 10/02/19 15:00 23:00 07:00 Intake Total 960 ml 360 ml Balance 960 ml 360 ml Labs: Laboratory Tests Test 10/01/19 08:05 10/01/19 16:46 10/01/19 19:07 Glucose (Fingerstick) 114 mg/dL (70-99) H 100 mg/dL (70-99) H 119 mg/dL (70-99) H Current Medications: I have reviewed the current psychotropics carefully including drug interactions. Risk benefit ratio favors no change other than as noted in my dictated progress note. Diagnosis: Problems: (1) Major neurocognitive disorder (2) Anxiety disorder (3) Dementia, vascular, with delusions (4) Dementia, vascular, with depression (5) Dementia in Alzheimer's disease with delusions (6) Dementia in Alzheimer's disease with depression (7) Impulse control disorder CHETAN VARGAS MD Oct 02, 2019 06:39
--- NOTE | 2019-10-02 07:26 | PDOC ---
Exam Note: Pramod Note: This is a late entry for 09/28/2019. Currently, the unit is shutdown for any admissions and discharges as directed by the Centers for Disease Control (CDC) and the [facility] ([facility]) because of Coronavirus (COVID-19) exposure on the unit. S/O: This note covers elements not covered in my initial note. The patient was reviewed with nursing staff, reviewed the chart and TeleHealth Services provided for this date for the patient. Nursing report was from CALEB Mix. ROS: No CV, , Pulmonary system symptoms on review. MSE: Oriented to himself and situation. Speech has some latency, coherent. Abstraction is fair. Computation impaired. Language function is intact. Mood and affect withdrawn, depressed. Labs: Reviewed. Imp: Major neurocognitive disorder Alzheimer, vascular with depression. Major depressive disorder. Rest unchanged from initial note. Plan: No change from initial note. Assessment: Vital Signs/I&O: Vital Signs Date Time Temp Pulse Resp B/P (MAP) Pulse Ox O2 Delivery O2 Flow Rate FiO2 10/02/19 06:03 97.6 64 18 120/69 (86) 96 09/29/19 16:31 Room Air I & O 10/01/19 10/01/19 10/02/19 15:00 23:00 07:00 Intake Total 960 ml 360 ml Balance 960 ml 360 ml Labs: Laboratory Tests Test 10/01/19 08:05 10/01/19 16:46 10/01/19 19:07 Glucose (Fingerstick) 114 mg/dL (70-99) H 100 mg/dL (70-99) H 119 mg/dL (70-99) H Current Medications: I have reviewed the current psychotropics carefully including drug interactions. Risk benefit ratio favors no change other than as noted in my dictated progress note. Diagnosis: Problems: (1) Major neurocognitive disorder (2) Anxiety disorder (3) Dementia, vascular, with delusions (4) Dementia, vascular, with depression (5) Dementia in Alzheimer's disease with delusions (6) Dementia in Alzheimer's disease with depression (7) Impulse control disorder CHETAN VARGAS MD Oct 02, 2019 07:26
--- NOTE | 2019-10-02 07:55 | PDOC ---
Exam Note: Pramod Note: This is a late entry 09/29/2019. Currently, the unit is shutdown for any admissions and discharges as directed by the Centers for Disease Control (CDC) and the [facility] ([facility]) because of Coronavirus (COVID-19) exposure on the unit. S/O: This note covers elements not covered in my initial note. The patient was reviewed with nursing staff, reviewed the chart and TeleHealth Services provided for this date for the patient. Nursing report was from CALEB Mix. He is wanting more psych meds. Remains paranoid, withdrawn, spends much time in his room. ROS: No CV, , Pulmonary system symptoms on review. MSE: Oriented to himself and situation. Speech coherent. Abstraction is fair. Computation impaired. Language function is intact. Mood and affect withdrawn, depressed. Labs: Reviewed. Imp: Major neurocognitive disorder Alzheimer, vascular with depression. Major depressive disorder. Rest unchanged from initial note. Plan: No change from initial note. Assessment: Vital Signs/I&O: Vital Signs Date Time Temp Pulse Resp B/P (MAP) Pulse Ox O2 Delivery O2 Flow Rate FiO2 10/02/19 06:03 97.6 64 18 120/69 (86) 96 09/29/19 16:31 Room Air I & O 10/01/19 10/01/19 10/02/19 15:00 23:00 07:00 Intake Total 960 ml 360 ml Balance 960 ml 360 ml Labs: Laboratory Tests Test 10/01/19 08:05 10/01/19 16:46 10/01/19 19:07 10/02/19 07:44 Glucose (Fingerstick) 114 mg/dL (70-99) H 100 mg/dL (70-99) H 119 mg/dL (70-99) H 127 mg/dL (70-99) H Current Medications: I have reviewed the current psychotropics carefully including drug interactions. Risk benefit ratio favors no change other than as noted in my dictated progress note. Diagnosis: Problems: (1) Major neurocognitive disorder (2) Anxiety disorder (3) Dementia, vascular, with delusions (4) Dementia, vascular, with depression (5) Dementia in Alzheimer's disease with delusions (6) Dementia in Alzheimer's disease with depression (7) Impulse control disorder CHETAN VARGAS MD Oct 02, 2019 07:55
--- NOTE | 2019-10-02 08:22 | PDOC ---
Exam Note: Pramod Note: This is a late entry for 09/30/2019. Currently, the unit is shutdown for any admissions and discharges as directed by the Centers for Disease Control (CDC) and the [facility] ([facility]) because of Coronavirus (COVID-19) exposure on the unit. S/O: This note covers elements not covered in my initial note. The patient was reviewed with nursing staff, reviewed the chart and TeleHealth Services provided for this date for the patient. Per nursing report from CALEB Mix, the patient had no issues. Potassium was low and he is on 20 mEq b.i.d. of supplements per Dr. Lester. ROS: No CV, , Pulmonary system symptoms on review. MSE: Oriented to himself and situation. Speech coherent. Abstraction is fair. Computation impaired. Language function is intact. Mood and affect withdrawn, depressed. Labs: Reviewed. Imp: Major neurocognitive disorder Alzheimer, vascular with depression. Major depressive disorder. Rest unchanged from initial note. Plan: No change from initial note. Assessment: Vital Signs/I&O: Vital Signs Date Time Temp Pulse Resp B/P (MAP) Pulse Ox O2 Delivery O2 Flow Rate FiO2 10/02/19 06:03 97.6 64 18 120/69 (86) 96 09/29/19 16:31 Room Air I & O 10/01/19 10/01/19 10/02/19 15:00 23:00 07:00 Intake Total 960 ml 360 ml Balance 960 ml 360 ml Labs: Laboratory Tests Test 10/01/19 16:46 10/01/19 19:07 10/02/19 07:44 Glucose (Fingerstick) 100 mg/dL (70-99) H 119 mg/dL (70-99) H 127 mg/dL (70-99) H Current Medications: I have reviewed the current psychotropics carefully including drug interactions. Risk benefit ratio favors no change other than as noted in my dictated progress note. Diagnosis: Problems: (1) Major neurocognitive disorder (2) Anxiety disorder (3) Dementia, vascular, with delusions (4) Dementia, vascular, with depression (5) Dementia in Alzheimer's disease with delusions (6) Dementia in Alzheimer's disease with depression (7) Impulse control disorder CHETAN VARGAS MD Oct 02, 2019 08:22
--- NOTE | 2019-10-02 08:50 | PDOC ---
Exam Note: Pramod Note: This is a late entry for 10/01/2019. Currently, the unit is shutdown for any admissions and discharges as directed by the Centers for Disease Control (CDC) and the [facility] ([facility]) because of Coronavirus (COVID-19) exposure on the unit. S/O: This note covers elements not covered in my initial note. The patient was reviewed with nursing staff, reviewed the chart and TeleHealth Services provided for this date for the patient. He was seen on a video-conferencing call coordinated with Farhad ELLIS, nursing staff on the unit whose appropriately protected with personal protective equipment and mask on the unit. Slept 7-1/4 hours. He was in his room. He has been cooperative, withdrawn, remains confused. ROS: Positive for tiredness. No CV, , Pulmonary system symptoms on review. MSE: Oriented to himself and situation. Speech has some latency, coherent. Abstraction is fair. Computation impaired. Short-term memory is impaired. Mood is dysphoric. No suicidal ideation. Labs: Reviewed. Imp: Unchanged from initial note. Plan: No change from initial note. Assessment: Vital Signs/I&O: Vital Signs Date Time Temp Pulse Resp B/P (MAP) Pulse Ox O2 Delivery O2 Flow Rate FiO2 10/02/19 06:03 97.6 64 18 120/69 (86) 96 09/29/19 16:31 Room Air I & O 10/01/19 10/01/19 10/02/19 15:00 23:00 07:00 Intake Total 960 ml 360 ml Balance 960 ml 360 ml Labs: Laboratory Tests Test 10/01/19 16:46 10/01/19 19:07 10/02/19 07:44 Glucose (Fingerstick) 100 mg/dL (70-99) H 119 mg/dL (70-99) H 127 mg/dL (70-99) H Current Medications: I have reviewed the current psychotropics carefully including drug interactions. Risk benefit ratio favors no change other than as noted in my dictated progress note. Diagnosis: Problems: (1) Major neurocognitive disorder (2) Anxiety disorder (3) Dementia, vascular, with delusions (4) Dementia, vascular, with depression (5) Dementia in Alzheimer's disease with delusions (6) Dementia in Alzheimer's disease with depression (7) Impulse control disorder CHETAN VARGAS MD Oct 02, 2019 08:50
[2019-10-02] MEDS: LACTOBACILLUS RHAMNOSUS GG 1 CAPSULE. PO SCH ×2 (10:08→20:00)
[2019-10-02] MEDS: CEPHALEXIN 250 MG CAPSULE PO SCH ×4 (10:08→20:01)
[2019-10-02] MEDS: SERTRALINE 50 MG TABLET. PO SCH (10:08)
[2019-10-02] MEDS: FUROSEMIDE 80 MG TABLET PO SCH (10:08)
[2019-10-02] MEDS: APIXABAN 5 MG TABLET. PO SCH ×2 (10:08→20:01)
[2019-10-02] MEDS: DULoxetine HCL 20 MG CAPSULE.DR PO SCH (10:08)
[2019-10-02] MEDS: MEMANTINE 10 MG TABLET. PO SCH ×2 (10:09→20:01)
[2019-10-02] MEDS: CHOLECALCIFEROL (VITAMIN D3) 1,000 UNIT TABLET PO SCH (10:09)
[2019-10-02] MEDS: LISINOPRIL 20 MG TABLET PO SCH (10:09)
[2019-10-02] MEDS: metFORMIN 500 MG TABLET PO SCH ×2 (10:09→15:53)
[2019-10-02] MEDS: DULoxetine HCL 30 MG CAPSULE.DR PO SCH (10:09)
[2019-10-02] MEDS: CARVEDILOL 12.5 MG TABLET PO SCH ×2 (10:10→15:58)
[2019-10-02] MEDS: POTASSIUM CHLORIDE 20 MEQ TABLET.ER. PO SCH ×2 (10:10→20:03)
[2019-10-02] MEDS: QUEtiapine 25 MG TABLET. PO SCH ×2 (15:55→20:00)
[2019-10-02 16:21] VITALS: BP 105/66
[2019-10-02] MEDS: ATORVASTATIN CALCIUM 20 MG TABLET PO SCH (20:00)
[2019-10-02] MEDS: MIRTAZAPINE 15 MG TABLET PO SCH (20:01)
[2019-10-02] MEDS: MAGNESIUM HYDROXIDE 2,400 MG/30 ML ORAL.SUSP. PO SCH (20:05)
--- NOTE | 2019-10-02 23:12 | PDOC ---
Exam Note: Pramod Note: S/O: This note covers elements not covered in my initial note. The patient was reviewed with nursing staff, reviewed the chart. Discussed with Garima ELLIS. He has been cooperative, withdrawn. ROS: No CV, , Pulmonary, Eye system symptoms on review. MSE: Oriented to himself and situation. Speech has some latency, coherent. Abstraction is fair. Computation impaired. Short-term memory is impaired. Mood is dysphoric. No suicidal ideation. Labs: Reviewed. Imp: Unchanged from initial note. Plan: No change from initial note. Assessment: Vital Signs/I&O: Vital Signs Date Time Temp Pulse Resp B/P (MAP) Pulse Ox O2 Delivery O2 Flow Rate FiO2 10/02/19 16:21 97.6 84 16 105/66 (79) 95 Room Air I & O 10/01/19 10/01/19 10/02/19 15:00 23:00 07:00 Intake Total 960 ml 360 ml Balance 960 ml 360 ml Labs: Laboratory Tests Test 10/02/19 07:44 Glucose (Fingerstick) 127 mg/dL (70-99) H Current Medications: I have reviewed the current psychotropics carefully including drug interactions. Risk benefit ratio favors no change other than as noted in my dictated progress note. Diagnosis: Problems: (1) Major neurocognitive disorder (2) Anxiety disorder (3) Dementia, vascular, with delusions (4) Dementia, vascular, with depression (5) Dementia in Alzheimer's disease with delusions (6) Dementia in Alzheimer's disease with depression (7) Impulse control disorder CHETAN VARGAS MD Oct 02, 2019 23:12
[2019-10-03 06:28] VITALS: BP 117/75
[2019-10-03] MEDS: DULoxetine HCL 20 MG CAPSULE.DR PO SCH (08:51)
[2019-10-03] MEDS: LACTOBACILLUS RHAMNOSUS GG 1 CAPSULE. PO SCH ×2 (08:51→21:12)
[2019-10-03] MEDS: CHOLECALCIFEROL (VITAMIN D3) 1,000 UNIT TABLET PO SCH (08:51)
[2019-10-03] MEDS: POTASSIUM CHLORIDE 20 MEQ TABLET.ER. PO SCH ×2 (08:51→21:13)
[2019-10-03] MEDS: DULoxetine HCL 30 MG CAPSULE.DR PO SCH (08:52)
[2019-10-03] MEDS: CARVEDILOL 12.5 MG TABLET PO SCH ×2 (08:52→16:22)
[2019-10-03] MEDS: metFORMIN 500 MG TABLET PO SCH ×2 (08:52→16:20)
[2019-10-03] MEDS: APIXABAN 5 MG TABLET. PO SCH ×2 (08:52→21:13)
[2019-10-03] MEDS: LISINOPRIL 20 MG TABLET PO SCH (08:52)
[2019-10-03] MEDS: SERTRALINE 50 MG TABLET. PO SCH (08:52)
[2019-10-03] MEDS: FUROSEMIDE 80 MG TABLET PO SCH (08:53)
[2019-10-03] MEDS: MEMANTINE 10 MG TABLET. PO SCH ×2 (08:56→21:12)
[2019-10-03] MEDS: CEPHALEXIN 250 MG CAPSULE PO SCH ×4 (08:56→21:13)
[2019-10-03] MEDS: QUEtiapine 25 MG TABLET. PO SCH ×2 (16:21→21:13)
[2019-10-03 16:22] VITALS: BP 115/67
[2019-10-03] MEDS: MAGNESIUM HYDROXIDE 2,400 MG/30 ML ORAL.SUSP. PO SCH (21:12)
[2019-10-03] MEDS: MIRTAZAPINE 15 MG TABLET PO SCH (21:13)
[2019-10-03] MEDS: ATORVASTATIN CALCIUM 20 MG TABLET PO SCH (21:13)
--- NOTE | 2019-10-03 23:49 | PDOC ---
Exam Note: Pramod Note: S/O: This note covers elements not covered in my initial note. Discussed the patient with nursing staff, reviewed the chart. In the morning, the patient had treatment team meeting with the entire team nursing staff, social service staff and myself and TeleHealth Services provided via audio-visual visit in the evening coordinated with Farhad ELLIS. We had a lengthy discussion about disposition, plan post-stabilization in the hospital. [facility] for 2 weeks since he was exposed to a possible COVID-19 infection here on our unit. I addressed this with the patient in the evening on the TeleHealth visit. He is quite accepting of it. ROS: No CV, , Pulmonary, Eye system symptoms on review. MSE: Oriented to himself. Insight and judgment, recent and remote memory, attention and concentration, fund of knowledge is poor consistent with his diagnosis. Labs: Reviewed. Imp: Unchanged from initial note. Plan: No change from initial note. We will Namenda 10 mg b.i.d., Seroquel 12.5 mg at 1700 hours, 25 mg h.s., Remeron 15 mg h.s., trazodone p.r.n., Zyprexa p.r.n., Cymbalta 30 mg a day. Adjust for the rest as clinically indicated. Assessment: Vital Signs/I&O: Vital Signs Date Time Temp Pulse Resp B/P (MAP) Pulse Ox O2 Delivery O2 Flow Rate FiO2 10/03/19 16:22 68 117/75 10/03/19 16:22 98.1 19 96 Room Air l I & O 10/02/19 10/02/19 10/03/19 15:00 23:00 07:00 Intake Total 840 ml 360 ml Balance 840 ml 360 ml Labs: Laboratory Tests Test 10/03/19 07:50 Glucose (Fingerstick) 128 mg/dL (70-99) H Current Medications: I have reviewed the current psychotropics carefully including drug interactions. Risk benefit ratio favors no change other than as noted in my dictated progress note. Diagnosis: Problems: (1) Major neurocognitive disorder (2) Anxiety disorder (3) Dementia, vascular, with delusions (4) Dementia, vascular, with depression (5) Dementia in Alzheimer's disease with delusions (6) Dementia in Alzheimer's disease with depression (7) Impulse control disorder CHETAN VARGAS MD Oct 03, 2019 23:49
[2019-10-04 05:47] VITALS: BP 96/60
[2019-10-04] MEDS: CARVEDILOL 12.5 MG TABLET PO SCH ×2 (08:00→16:27)
[2019-10-04] MEDS: CHOLECALCIFEROL (VITAMIN D3) 1,000 UNIT TABLET PO SCH (08:17)
[2019-10-04] MEDS: DULoxetine HCL 20 MG CAPSULE.DR PO SCH (08:17)
[2019-10-04] MEDS: CEPHALEXIN 250 MG CAPSULE PO SCH ×2 (08:18→12:02)
[2019-10-04] MEDS: MEMANTINE 10 MG TABLET. PO SCH ×2 (08:18→21:00)
[2019-10-04 08:20] VITALS: BP 93/65
[2019-10-04] MEDS: LISINOPRIL 20 MG TABLET PO SCH (08:23)
[2019-10-04] MEDS: metFORMIN 500 MG TABLET PO SCH ×2 (08:24→16:27)
[2019-10-04] MEDS: FUROSEMIDE 80 MG TABLET PO SCH (08:24)
[2019-10-04] MEDS: LACTOBACILLUS RHAMNOSUS GG 1 CAPSULE. PO SCH ×2 (08:24→21:00)
[2019-10-04] MEDS: SERTRALINE 50 MG TABLET. PO SCH (08:24)
[2019-10-04] MEDS: DULoxetine HCL 30 MG CAPSULE.DR PO SCH (08:24)
[2019-10-04] MEDS: APIXABAN 5 MG TABLET. PO SCH ×2 (08:24→21:00)
[2019-10-04] MEDS: POTASSIUM CHLORIDE 20 MEQ TABLET.ER. PO SCH ×2 (08:24→21:00)
[2019-10-04 15:56] VITALS: BP 97/57
[2019-10-04] MEDS: QUEtiapine 25 MG TABLET. PO SCH ×2 (16:27→21:00)
[2019-10-04] MEDS: MIRTAZAPINE 15 MG TABLET PO SCH (21:00)
[2019-10-04] MEDS: ATORVASTATIN CALCIUM 20 MG TABLET PO SCH (21:00)
[2019-10-04] MEDS: MAGNESIUM HYDROXIDE 2,400 MG/30 ML ORAL.SUSP. PO SCH (21:01)
[2019-10-05 06:10] VITALS: BP 95/64
[2019-10-05] MEDS: CARVEDILOL 12.5 MG TABLET PO SCH ×2 (08:00→17:00)
[2019-10-05] MEDS: DULoxetine HCL 20 MG CAPSULE.DR PO SCH (08:13)
[2019-10-05] MEDS: LACTOBACILLUS RHAMNOSUS GG 1 CAPSULE. PO SCH ×2 (08:14→19:58)
[2019-10-05] MEDS: MEMANTINE 10 MG TABLET. PO SCH ×2 (08:14→19:58)
[2019-10-05] MEDS: POTASSIUM CHLORIDE 20 MEQ TABLET.ER. PO SCH (08:14)
[2019-10-05] MEDS: CHOLECALCIFEROL (VITAMIN D3) 1,000 UNIT TABLET PO SCH (08:14)
[2019-10-05] MEDS: APIXABAN 5 MG TABLET. PO SCH ×2 (08:15→19:59)
[2019-10-05] MEDS: metFORMIN 500 MG TABLET PO SCH (08:15)
[2019-10-05] MEDS: FUROSEMIDE 80 MG TABLET PO SCH (08:15)
[2019-10-05] MEDS: LISINOPRIL 20 MG TABLET PO SCH (08:17)
[2019-10-05] MEDS: DULoxetine HCL 30 MG CAPSULE.DR PO SCH (08:17)
[2019-10-05 10:13] LABS: BASO # 0.1 x10^3/uL (0.0-0.2); BASO % 3 % (0-3); EOS # 0.1 x10^3/uL (0.0-0.7); EOS % 1 % (0-3); HEMATOCRIT 41.4 % (39.0-53.0); HEMOGLOBIN 13.2 g/dL (13.0-17.5); LYMPH # 0.8 x10^3/uL (1.0-4.8); LYMPH % 15 % (24-48); MEAN CORPUSCULAR HEMOGLOBIN 28 pg (25-35); MEAN CORPUSCULAR HGB CONC 32 g/dL (31-37); MEAN CORPUSCULAR VOLUME 89 fL (79-100); MONO # 0.5 x10^3/uL (0.0-1.1); MONO % 10 % (0-9); NEUT # 3.8 x10^3uL (1.8-7.7); NEUT % 72 % (31-73); PLATELET COUNT 241 x10^3/uL (140-400); RED BLOOD COUNT 4.68 x10^6/uL (4.30-5.70); RED CELL DISTRIBUTION WIDTH 15.7 % (11.5-14.5); WHITE BLOOD COUNT 5.3 x10^3/uL (4.0-11.0)
[2019-10-05 12:24] LABS: ALBUMIN 3.6 g/dL (3.4-5.0); ALBUMIN/GLOBULIN RATIO 0.8 (1.0-1.7); CALCIUM 9.5 mg/dL (8.5-10.1); CREATININE 1.6 mg/dL (0.7-1.3); GFR 42.6; POTASSIUM 5.3 mmol/L (3.5-5.1); TOTAL BILIRUBIN 0.5 mg/dL (0.2-1.0)
[2019-10-05 16:04] VITALS: BP 103/69
[2019-10-05] MEDS: QUEtiapine 25 MG TABLET. PO SCH ×2 (17:01→19:58)
[2019-10-05] MEDS: MIRTAZAPINE 15 MG TABLET PO SCH (19:58)
[2019-10-05] MEDS: ATORVASTATIN CALCIUM 20 MG TABLET PO SCH (19:59)
[2019-10-05] MEDS: MAGNESIUM HYDROXIDE 2,400 MG/30 ML ORAL.SUSP. PO SCH (19:59)
[2019-10-06] MEDS: CARVEDILOL 12.5 MG TABLET PO SCH ×2 (08:00→17:00)
--- NOTE | 2019-10-06 08:00 | PDOC ---
Exam Note: Pramod Note: S/O: This note is a late entry for DOS 10/04/2019 covers elements not covered in my initial note. Discussed the patient with nursing staff, reviewed the chart. Discussed with Alicia ELLIS. I met with the patient in the evening via audio-visual coordinated with Farhad ELLIS. Patient slept 7 hours previous night. Remains withdrawn, somewhat confused. ROS: No CV, , Pulmonary, Eye system symptoms on review. MSE: Oriented to himself. Insight and judgment, recent and remote memory, attention and concentration, fund of knowledge is poor consistent with his diagnosis. Labs: Reviewed. Imp: Unchanged from initial note. Plan: No change from initial note. The patient is on Cymbalta 50 mg a day, Zoloft 50 mg a day. We will stop the Zoloft and maintain Zyprexa p.r.n., Namenda 10 mg b.i.d., Seroquel 12.5 mg at 1700 hours, 25 mg h.s., Remeron 15 mg h.s., trazodone 50 mg h.s. p.r.n. to be repeated as needed for insomnia. Assessment: Vital Signs/I&O: Vital Signs Date Time Temp Pulse Resp B/P (MAP) Pulse Ox O2 Delivery O2 Flow Rate FiO2 10/05/19 17:00 85 103/69 10/05/19 16:04 98.0 18 97 Room Air I & O 0 10/05/19 10/05/19 10/06/19 15:00 23:00 07:00 Intake Total 940 ml 360 ml 240 ml Balance 940 ml 360 ml 240 ml Labs: Laboratory Tests Test 10/05/19 09:30 10/05/19 11:30 10/06/19 07:37 White Blood Count 5.3 x10^3/uL (4.0-11.0) Red Blood Count 4.68 x10^6/uL (4.30-5.70) Hemoglobin 13.2 g/dL (13.0-17.5) Hematocrit 41.4 % (39.0-53.0) Mean Corpuscular Volume 89 fL (79-100) Mean Corpuscular Hemoglobin 28 pg (25-35) Mean Corpuscular Hemoglobin Concent 32 g/dL (31-37) Red Cell Distribution Width 15.7 % (11.5-14.5) H Platelet Count 241 x10^3/uL (140-400) Neutrophils (%) (Auto) 72 % (31-73) Lymphocytes (%) (Auto) 15 % (24-48) L Monocytes (%) (Auto) 10 % (0-9) H Eosinophils (%) (Auto) 1 % (0-3) Basophils (%) (Auto) 3 % (0-3) Neutrophils # (Auto) 3.8 x10^3uL (1.8-7.7) Lymphocytes # (Auto) 0.8 x10^3/uL (1.0-4.8) L Monocytes # (Auto) 0.5 x10^3/uL (0.0-1.1) Eosinophils # (Auto) 0.1 x10^3/uL (0.0-0.7) Basophils # (Auto) 0.1 x10^3/uL (0.0-0.2) Sodium Level 138 mmol/L (136-145) Potassium Level 5.3 mmol/L (3.5-5.1) H Chloride Level 99 mmol/L (98-107) Carbon Dioxide Level 31 mmol/L (21-32) Anion Gap 8 (6-14) Blood Urea Nitrogen 46 mg/dL (8-26) H Creatinine 1.6 mg/dL (0.7-1.3) H Estimated GFR (Cockcroft-Gault) 42.6 BUN/Creatinine Ratio 29 (6-20) H Glucose Level 139 mg/dL (70-99) H Calcium Level 9.5 mg/dL (8.5-10.1) Total Bilirubin 0.5 mg/dL (0.2-1.0) Aspartate Amino Transferase (AST) 27 U/L (15-37) Alanine Aminotransferase (ALT) 30 U/L (16-63) Alkaline Phosphatase 141 U/L (46-116) H Total Protein 8.0 g/dL (6.4-8.2) Albumin 3.6 g/dL (3.4-5.0) Albumin/Globulin Ratio 0.8 (1.0-1.7) L Glucose (Fingerstick) 132 mg/dL (70-99) H Current Medications: I have reviewed the current psychotropics carefully including drug interactions. Risk benefit ratio favors no change other than as noted in my dictated progress note. Diagnosis: Problems: (1) Major neurocognitive disorder (2) Anxiety disorder (3) Dementia, vascular, with delusions (4) Dementia, vascular, with depression (5) Dementia in Alzheimer's disease with delusions (6) Dementia in Alzheimer's disease with depression (7) Impulse control disorder CHETAN VARGAS MD Oct 06, 2019 08:00
[2019-10-06] MEDS: DULoxetine HCL 30 MG CAPSULE.DR PO SCH (08:06)
[2019-10-06] MEDS: LACTOBACILLUS RHAMNOSUS GG 1 CAPSULE. PO SCH ×2 (08:06→21:01)
[2019-10-06] MEDS: APIXABAN 5 MG TABLET. PO SCH ×2 (08:07→21:01)
[2019-10-06] MEDS: DULoxetine HCL 20 MG CAPSULE.DR PO SCH (08:07)
[2019-10-06] MEDS: MEMANTINE 10 MG TABLET. PO SCH ×2 (08:07→21:01)
[2019-10-06] MEDS: CHOLECALCIFEROL (VITAMIN D3) 1,000 UNIT TABLET PO SCH (08:08)
--- NOTE | 2019-10-06 08:26 | PDOC ---
Exam Note: Pramod Note: S/O: This note is a late entry for DOS 10/05/2019 covers elements not covered in my initial note. Discussed the patient with nursing staff, reviewed the chart. Discussed with Juli RN and Juli went around with the audio-visual in the evening. I met with him in his room. Patient has had increased BUN and cre atinine. Dr. Lester is addressing this and some meds are being adjusted. Potassium was elevated at 6.9, currently 5.3. Again defer to Dr. Lester. Patient remains withdrawn. He slept 6-1/2 hours. ROS: Positive for tiredness. No CV, , Pulmonary, Eye system symptoms on review. MSE: Oriented to himself. Insight and judgment, recent and remote memory, attention and concentration, fund of knowledge is poor consistent with his diagnosis. Labs: Reviewed. Imp: Unchanged from initial note. Plan: No change from initial note. Assessment: Vital Signs/I&O: Vital Signs Date Time Temp Pulse Resp B/P (MAP) Pulse Ox O2 Delivery O2 Flow Rate FiO2 10/06/19 08:00 85 103/69 10/05/19 16:04 98.0 18 97 Room Air I & O 10/05/19 10/05/19 10/06/19 15:00 23:00 07:00 Intake Total 940 ml 360 ml 240 ml Balance 940 ml 360 ml 240 ml Labs: Laboratory Tests Test 10/05/19 09:30 10/05/19 11:30 10/06/19 07:37 White Blood Count 5.3 x10^3/uL (4.0-11.0) Red Blood Count 4.68 x10^6/uL (4.30-5.70) Hemoglobin 13.2 g/dL (13.0-17.5) Hematocrit 41.4 % (39.0-53.0) Mean Corpuscular Volume 89 fL (79-100) Mean Corpuscular Hemoglobin 28 pg (25-35) Mean Corpuscular Hemoglobin Concent 32 g/dL (31-37) Red Cell Distribution Width 15.7 % (11.5-14.5) H Platelet Count 241 x10^3/uL (140-400) Neutrophils (%) (Auto) 72 % (31-73) Lymphocytes (%) (Auto) 15 % (24-48) L Monocytes (%) (Auto) 10 % (0-9) H Eosinophils (%) (Auto) 1 % (0-3) Basophils (%) (Auto) 3 % (0-3) Neutrophils # (Auto) 3.8 x10^3uL (1.8-7.7) Lymphocytes # (Auto) 0.8 x10^3/uL (1.0-4.8) L Monocytes # (Auto) 0.5 x10^3/uL (0.0-1.1) Eosinophils # (Auto) 0.1 x10^3/uL (0.0-0.7) Basophils # (Auto) 0.1 x10^3/uL (0.0-0.2) Sodium Level 138 mmol/L (136-145) Potassium Level 5.3 mmol/L (3.5-5.1) H Chloride Level 99 mmol/L (98-107) Carbon Dioxide Level 31 mmol/L (21-32) Anion Gap 8 (6-14) Blood Urea Nitrogen 46 mg/dL (8-26) H Creatinine 1.6 mg/dL (0.7-1.3) H Estimated GFR (Cockcroft-Gault) 42.6 BUN/Creatinine Ratio 29 (6-20) H Glucose Level 139 mg/dL (70-99) H Calcium Level 9.5 mg/dL (8.5-10.1) Total Bilirubin 0.5 mg/dL (0.2-1.0) Aspartate Amino Transferase (AST) 27 U/L (15-37) Alanine Aminotransferase (ALT) 30 U/L (16-63) Alkaline Phosphatase 141 U/L (46-116) H Total Protein 8.0 g/dL (6.4-8.2) Albumin 3.6 g/dL (3.4-5.0) Albumin/Globulin Ratio 0.8 (1.0-1.7) L Glucose (Fingerstick) 132 mg/dL (70-99) H Current Medications: I have reviewed the current psychotropics carefully including drug interactions. Risk benefit ratio favors no change other than as noted in my dictated progress note. Diagnosis: Problems: (1) Major neurocognitive disorder (2) Anxiety disorder (3) Dementia, vascular, with delusions (4) Dementia, vascular, with depression (5) Dementia in Alzheimer's disease with delusions (6) Dementia in Alzheimer's disease with depression (7) Impulse control disorder CHETAN VARGAS MD Oct 06, 2019 08:26
[2019-10-06 10:09] VITALS: BP 101/64
[2019-10-06 16:06] VITALS: BP 100/70
[2019-10-06] MEDS: QUEtiapine 25 MG TABLET. PO SCH ×2 (17:08→21:01)
[2019-10-06] MEDS: MAGNESIUM HYDROXIDE 2,400 MG/30 ML ORAL.SUSP. PO SCH (21:01)
[2019-10-06] MEDS: ATORVASTATIN CALCIUM 20 MG TABLET PO SCH (21:01)
[2019-10-06] MEDS: MIRTAZAPINE 15 MG TABLET PO SCH (21:01)
--- NOTE | 2019-10-06 22:44 | PDOC ---
Exam Note: Pramod Note: S/O: This note covers elements not covered in my initial note. The patient was seen on TeleHealth rounds evening of 10/06/2019 by Karrie ELLIS. Discussed the patient with nursing staff, reviewed the chart. Nursing report was with Sarahy ELLIS. Patients daughter had called and reportedly talked to the patient. P atient has not voiced anymore homicidal ideation towards the daughter for placing him at the facility. ROS: No CV, , Pulmonary, Eye system symptoms on review. MSE: Oriented to himself and situation. Speech has some latency, coherent. Abstraction is fair. Computation impaired. Language function intact. Mood and affect somewhat withdrawn. Labs: Reviewed. Imp: Unchanged as indicated in my note. Plan: Continue psychotropics mentioned in my current active psychotropic medications list. Assessment: Vital Signs/I&O: Vital Signs Date Time Temp Pulse Resp B/P (MAP) Pulse Ox O2 Delivery O2 Flow Rate FiO2 10/06/19 17:00 70 100/70 10/06/19 16:06 97.4 16 97 Room Air I & O 10/05/19 10/05/19 10/06/19 15:00 23:00 07:00 Intake Total 940 ml 360 ml 240 ml Balance 940 ml 360 ml 240 ml Labs: Laboratory Tests Test 10/06/19 07:37 Glucose (Fingerstick) 132 mg/dL (70-99) H Current Medications: I have reviewed the current psychotropics carefully including drug interactions. Risk benefit ratio favors no change other than as noted in my dictated progress note. Diagnosis: Problems: (1) Major neurocognitive disorder (2) Anxiety disorder (3) Dementia, vascular, with delusions (4) Dementia, vascular, with depression (5) Dementia in Alzheimer's disease with delusions (6) Dementia in Alzheimer's disease with depression (7) Impulse control disorder CHETAN VARGAS MD Oct 06, 2019 22:44
[2019-10-07 05:56] VITALS: BP 99/53
[2019-10-07 06:57] LABS: CALCIUM 9.3 mg/dL (8.5-10.1); CREATININE 1.3 mg/dL (0.7-1.3); GFR 54.1; POTASSIUM 4.8 mmol/L (3.5-5.1)
[2019-10-07] MEDS: CARVEDILOL 12.5 MG TABLET PO SCH ×2 (08:43→17:14)
[2019-10-07] MEDS: LACTOBACILLUS RHAMNOSUS GG 1 CAPSULE. PO SCH ×2 (08:43→20:43)
[2019-10-07] MEDS: CHOLECALCIFEROL (VITAMIN D3) 1,000 UNIT TABLET PO SCH (08:43)
[2019-10-07] MEDS: APIXABAN 5 MG TABLET. PO SCH ×2 (08:43→20:43)
[2019-10-07] MEDS: DULoxetine HCL 30 MG CAPSULE.DR PO SCH (08:43)
[2019-10-07] MEDS: MEMANTINE 10 MG TABLET. PO SCH ×2 (08:43→20:43)
[2019-10-07] MEDS: DULoxetine HCL 20 MG CAPSULE.DR PO SCH (08:44)
[2019-10-07 16:00] VITALS: BP 99/64
[2019-10-07] MEDS: QUEtiapine 25 MG TABLET. PO SCH ×2 (17:15→20:43)
[2019-10-07] MEDS: ATORVASTATIN CALCIUM 20 MG TABLET PO SCH (20:43)
[2019-10-07] MEDS: MAGNESIUM HYDROXIDE 2,400 MG/30 ML ORAL.SUSP. PO SCH (20:43)
[2019-10-07] MEDS: MIRTAZAPINE 15 MG TABLET PO SCH (20:43)
--- NOTE | 2019-10-07 22:49 | PDOC ---
Exam Note: Pramod Note: S/O: This note covers elements not covered in my initial note. The patient was seen on TeleHealth rounds in the evening by Karrie ELLIS. Discussed the patient with nursing staff, reviewed the chart. Nursing report was with Beatris ELLIS. Patient slept 7 hours previous night, has been somewhat isolative in his room but I met with him in the evening on the audio-visual rounds and he was in the dayroom. It was a good day earlier today. Door was open to the patio and he sat outside for awhile, seemed to remember this. He is compliant with his treatment. ROS: No CV, , Pulmonary, Eye system symptoms on review. MSE: Oriented to himself and situation. Speech has some latency, coherent. Ab straction is fair. Computation impaired. Language function intact. Mood and affect somewhat withdrawn. Labs: Reviewed. Imp: Unchanged as indicated in my note. Plan: Continue psychotropics mentioned in his current list of psychotropics. Assessment: Vital Signs/I&O: Vital Signs Date Time Temp Pulse Resp B/P (MAP) Pulse Ox O2 Delivery O2 Flow Rate FiO2 10/07/19 17:14 65 99/64 10/07/19 16:00 97.8 16 96 Room Air I & O 10/06/19 10/06/19 10/07/19 15:00 23:00 07:00 Intake Total 600 ml 300 ml Balance 600 ml 300 ml Labs: Laboratory Tests Test 10/07/19 06:35 10/07/19 07:48 Sodium Level 139 mmol/L (136-145) Potassium Level 4.8 mmol/L (3.5-5.1) Chloride Level 102 mmol/L (98-107) Carbon Dioxide Level 30 mmol/L (21-32) Anion Gap 7 (6-14) Blood Urea Nitrogen 40 mg/dL (8-26) H Creatinine 1.3 mg/dL (0.7-1.3) Estimated GFR (Cockcroft-Gault) 54.1 Glucose Level 139 mg/dL (70-99) H Calcium Level 9.3 mg/dL (8.5-10.1) Glucose (Fingerstick) 137 mg/dL (70-99) H Current Medications: I have reviewed the current psychotropics carefully including drug interactions. Risk benefit ratio favors no change other than as noted in my dictated progress note. Diagnosis: Problems: (1) Major neurocognitive disorder (2) Anxiety disorder (3) Dementia, vascular, with delusions (4) Dementia, vascular, with depression (5) Dementia in Alzheimer's disease with delusions (6) Dementia in Alzheimer's disease with depression (7) Impulse control disorder CHETAN VARGAS MD Oct 07, 2019 22:49
[2019-10-08 05:11] VITALS: BP 135/73
[2019-10-08] MEDS: CARVEDILOL 12.5 MG TABLET PO SCH ×2 (08:28→17:00)
[2019-10-08] MEDS: DULoxetine HCL 30 MG CAPSULE.DR PO SCH (08:28)
[2019-10-08] MEDS: LACTOBACILLUS RHAMNOSUS GG 1 CAPSULE. PO SCH ×2 (08:28→20:36)
[2019-10-08] MEDS: CHOLECALCIFEROL (VITAMIN D3) 1,000 UNIT TABLET PO SCH (08:28)
[2019-10-08] MEDS: DULoxetine HCL 20 MG CAPSULE.DR PO SCH (08:28)
[2019-10-08] MEDS: MEMANTINE 10 MG TABLET. PO SCH ×2 (08:28→20:36)
[2019-10-08] MEDS: APIXABAN 5 MG TABLET. PO SCH ×2 (08:29→20:36)
[2019-10-08 15:30] VITALS: BP 107/64
[2019-10-08] MEDS: QUEtiapine 25 MG TABLET. PO SCH ×2 (17:21→20:36)
[2019-10-08] MEDS: ATORVASTATIN CALCIUM 20 MG TABLET PO SCH (20:36)
[2019-10-08] MEDS: MIRTAZAPINE 15 MG TABLET PO SCH (20:36)
[2019-10-08] MEDS: MAGNESIUM HYDROXIDE 2,400 MG/30 ML ORAL.SUSP. PO SCH (20:36)
--- NOTE | 2019-10-08 21:54 | PDOC ---
Exam Note: Pramod Note: Please also refer to the separate dictated note~for this date of service dictated separately. Discussed the patient with Nursing staff reviewed the chart.~Reviewed interim history and current functioning. Reviewed vital signs,~Labs/ Radiology~and current medications noted below. Continue current treatment with the changes noted in the dictated addendum note Assessment: Vital Signs/I&O: Vital Signs Date Time Temp Pulse Resp B/P (MAP) Pulse Ox O2 Delivery O2 Flow Rate FiO2 10/08/19 17:00 56 107/64 10/08/19 15:30 97.5 18 98 10/07/19 16:00 Room Air I & O 10/07/19 10/07/19 10/08/19 15:00 23:00 07:00 Intake Total 720 ml 600 ml Balance 720 ml 600 ml Labs: Laboratory Tests Test 10/08/19 08:00 Glucose (Fingerstick) 117 mg/dL (70-99) H Current Medications: I have reviewed the current psychotropics carefully including drug interactions. Risk benefit ratio favors no change other than as noted in my dictated progress note. Diagnosis: Problems: (1) Major neurocognitive disorder (2) Anxiety disorder (3) Dementia, vascular, with delusions (4) Dementia, vascular, with depression (5) Dementia in Alzheimer's disease with delusions (6) Dementia in Alzheimer's disease with depression (7) Impulse control disorder CHETAN VARGAS MD Oct 08, 2019 21:54
[2019-10-09 06:19] VITALS: BP 121/76
[2019-10-09] MEDS: MEMANTINE 10 MG TABLET. PO SCH ×2 (08:14→20:09)
[2019-10-09] MEDS: APIXABAN 5 MG TABLET. PO SCH ×2 (08:14→20:09)
[2019-10-09] MEDS: LACTOBACILLUS RHAMNOSUS GG 1 CAPSULE. PO SCH ×2 (08:14→20:08)
[2019-10-09] MEDS: CARVEDILOL 12.5 MG TABLET PO SCH ×2 (08:14→17:21)
[2019-10-09] MEDS: CHOLECALCIFEROL (VITAMIN D3) 1,000 UNIT TABLET PO SCH (08:14)
[2019-10-09] MEDS: DULoxetine HCL 30 MG CAPSULE.DR PO SCH (08:15)
[2019-10-09] MEDS: DULoxetine HCL 20 MG CAPSULE.DR PO SCH (08:15)
--- NOTE | 2019-10-09 10:33 | PDOC ---
Exam Note: Pramod Note: S/O: This note is a late entry for DOS 10/08/2019 covers elements not covered in my initial note. The patient was seen on TeleHealth rounds coordinated by Amanda ELLIS in the evening. Discussed the patient with nursing staff, reviewed the chart. Nursing report was with Garima ELLIS. Patient slept 7-1/4 hours pre vious night. Fluids are being pushed. We will defer to Dr. Lester. Patient remains confused, felt he was in [place]. Patient is forgetful, confused, wanted to know how he came here and when I discussed this with him he was unable to comprehend it. ROS: No CV, , Pulmonary, Eye system symptoms on review. MSE: Oriented to himself and situation. Speech has some latency, coherent. Abstraction is fair. Computation impaired. Language function intact. Mood and affect somewhat withdrawn. Labs: Reviewed. BUN 40. Imp: Major neurocognitive disorder Alzheimer, vascular with depression. Major depressive disorder. Plan: I have discussed with social service staff about [facility] 14 days starting end of this week. Continue psychotropics mentioned in his current list of psychotropics. Assessment: Vital Signs/I&O: Vital Signs Date Time Temp Pulse Resp B/P (MAP) Pulse Ox O2 Delivery O2 Flow Rate FiO2 10/09/19 08:14 67 121/76 10/09/19 06:19 97.9 18 96 10/07/19 16:00 Room Air I & O 10/08/19 10/08/19 10/09/19 15:00 23:00 07:00 Intake Total 600 ml 360 ml Balance 600 ml 360 ml Labs: Laboratory Tests Test 10/09/19 07:14 Glucose (Fingerstick) 142 mg/dL (70-99) H Current Medications: I have reviewed the current psychotropics carefully including drug interactions. Risk benefit ratio favors no change other than as noted in my dictated progress note. Diagnosis: Problems: (1) Major neurocognitive disorder (2) Anxiety disorder (3) Dementia, vascular, with delusions (4) Dementia, vascular, with depression (5) Dementia in Alzheimer's disease with delusions (6) Dementia in Alzheimer's disease with depression (7) Impulse control disorder CHETAN VARGAS MD Oct 09, 2019 10:33
[2019-10-09 15:34] VITALS: BP 115/66
[2019-10-09 16:50] VITALS: BP 131/69
[2019-10-09] MEDS: QUEtiapine 25 MG TABLET. PO SCH ×2 (17:20→20:09)
[2019-10-09] MEDS: MAGNESIUM HYDROXIDE 2,400 MG/30 ML ORAL.SUSP. PO SCH (20:08)
[2019-10-09] MEDS: MIRTAZAPINE 15 MG TABLET PO SCH (20:09)
[2019-10-09] MEDS: ATORVASTATIN CALCIUM 20 MG TABLET PO SCH (20:09)
--- NOTE | 2019-10-09 21:54 | PDOC ---
Exam Note: Pramod Note: Please also refer to the separate dictated note~for this date of service dictated separately.~Patient seen individually. Discussed the patient with Nursing staff reviewed the chart.~Reviewed interim history and current functioning. Reviewed vital signs,~Labs/ Radiology~and current medications noted below. Continue current treatment with the changes noted in the dictated addendum note Assessment: Vital Signs/I&O: Vital Signs Date Time Temp Pulse Resp B/P (MAP) Pulse Ox O2 Delivery O2 Flow Rate FiO2 10/09/19 17:21 51 115/66 10/09/19 16:50 97.3 18 Room Air 98.0 10/09/19 15:34 97 I & O 10/08/19 10/08/19 10/09/19 15:00 23:00 07:00 Intake Total 600 ml 360 ml Balance 600 ml 360 ml Labs: Laboratory Tests Test 10/09/19 07:14 Glucose (Fingerstick) 142 mg/dL (70-99) H Current Medications: I have reviewed the current psychotropics carefully including drug interactions. Risk benefit ratio favors no change other than as noted in my dictated progress note. Diagnosis: Problems: (1) Major neurocognitive disorder (2) Anxiety disorder (3) Dementia, vascular, with delusions (4) Dementia, vascular, with depression (5) Dementia in Alzheimer's disease with delusions (6) Dementia in Alzheimer's disease with depression (7) Impulse control disorder CHETAN VARGAS MD Oct 09, 2019 21:54
[2019-10-10 05:44] VITALS: BP 128/80
[2019-10-10] MEDS: DULoxetine HCL 30 MG CAPSULE.DR PO SCH (07:58)
[2019-10-10] MEDS: DULoxetine HCL 20 MG CAPSULE.DR PO SCH (07:58)
[2019-10-10] MEDS: LACTOBACILLUS RHAMNOSUS GG 1 CAPSULE. PO SCH ×2 (07:58→20:12)
[2019-10-10] MEDS: MEMANTINE 10 MG TABLET. PO SCH ×2 (07:59→20:11)
[2019-10-10] MEDS: CARVEDILOL 12.5 MG TABLET PO SCH ×2 (07:59→16:12)
[2019-10-10] MEDS: APIXABAN 5 MG TABLET. PO SCH ×2 (07:59→20:12)
[2019-10-10] MEDS: CHOLECALCIFEROL (VITAMIN D3) 1,000 UNIT TABLET PO SCH (07:59)
--- NOTE | 2019-10-10 10:31 | PDOC ---
Exam Note: Pramod Note: S/O: This note is a late entry for DOS 10/09/2019 covers elements not covered in my initial note. We have had exposure of COVID-19 on the unit consequent to a staff member. The unit was on lockdown per [facility] ([facility])/Centers for Disease Control (CDC). Three patients had dev eloped fever and other symptoms for which they were screened for the COVID-19, two of which have come back negative, result for one is awaited and one other patient today is running a fever and we are doing a COVID-19 screen for this patient. Per regulations from the CDC/[facility], we are unable to admit or discharge any patients, still all of this is negative and the length of stay has affected not entirely by the clinical situation but by this directive additionally from the [facility]/CDC. The patient was seen on TeleHealth rounds coordinated by Daria ELLIS in the evening. Discussed the patient with nursing staff, reviewed the chart. Nursing report was with Beatris ELLIS. Patient slept 8 hours previous night. Overall, patient remains somewhat withdrawn, but denies suicidal ideation. ROS: No CV, , Pulmonary, Eye system symptoms on review. MSE: He is quite verbal, animated, smiling. Short-term memory is impaired. Speech is otherwise coherent. We discussed discharge plans for later in the week. Abstraction is fair. Computation impaired. Language function intact. Mood and affect withdrawn at times but showing improvement. Labs: Reviewed. Imp: Major neurocognitive disorder Alzheimer, vascular with depression. Major depressive disorder. Plan: No change from initial note. Assessment: Vital Signs/I&O: Vital Signs Date Time Temp Pulse Resp B/P (MAP) Pulse Ox O2 Delivery O2 Flow Rate FiO2 10/10/19 07:59 66 128/80 10/10/19 05:44 98.0 16 93 93.0 10/09/19 16:50 Room Air I & O 10/09/19 10/09/19 10/10/19 15:00 23:00 07:00 Intake Total 960 ml 480 ml Balance 960 ml 480 ml Labs: Laboratory Tests Test 10/10/19 07:26 Glucose (Fingerstick) 131 mg/dL (70-99) H Current Medications: I have reviewed the current psychotropics carefully including drug interactions. Risk benefit ratio favors no change other than as noted in my dictated progress note. Diagnosis: Problems: (1) Major neurocognitive disorder (2) Anxiety disorder (3) Dementia, vascular, with delusions (4) Dementia, vascular, with depression (5) Dementia in Alzheimer's disease with delusions (6) Dementia in Alzheimer's disease with depression (7) Impulse control disorder CHETAN VARGAS MD Oct 10, 2019 10:31
[2019-10-10 15:49] VITALS: BP 132/75
[2019-10-10] MEDS: QUEtiapine 25 MG TABLET. PO SCH ×2 (16:12→20:12)
[2019-10-10] MEDS: MIRTAZAPINE 15 MG TABLET PO SCH (20:11)
[2019-10-10] MEDS: ATORVASTATIN CALCIUM 20 MG TABLET PO SCH (20:11)
[2019-10-10] MEDS: MAGNESIUM HYDROXIDE 2,400 MG/30 ML ORAL.SUSP. PO SCH (20:12)
--- NOTE | 2019-10-10 21:58 | PDOC ---
Exam Note: Pramod Note: Please also refer to the separate dictated note~for this date of service dictated separately.~Patient seen individually. Discussed the patient with Nursing staff reviewed the chart.~Reviewed interim history and current functioning. Reviewed vital signs,~Labs/ Radiology~and current medications noted below. Continue current treatment with the changes noted in the dictated addendum note Assessment: Vital Signs/I&O: Vital Signs Date Time Temp Pulse Resp B/P (MAP) Pulse Ox O2 Delivery O2 Flow Rate FiO2 10/10/19 18:30 97.7 10/10/19 16:12 64 132/75 10/10/19 15:49 16 98 10/10/19 05:44 93.0 10/09/19 16:50 Room Air I & O 10/09/19 10/09/19 10/10/19 15:00 23:00 07:00 Intake Total 960 ml 480 ml Balance 960 ml 480 ml Labs: Laboratory Tests Test 10/10/19 07:26 Glucose (Fingerstick) 131 mg/dL (70-99) H Current Medications: I have reviewed the current psychotropics carefully including drug interactions. Risk benefit ratio favors no change other than as noted in my dictated progress note. Diagnosis: Problems: (1) Major neurocognitive disorder (2) Anxiety disorder (3) Dementia, vascular, with delusions (4) Dementia, vascular, with depression (5) Dementia in Alzheimer's disease with delusions (6) Dementia in Alzheimer's disease with depression (7) Impulse control disorder CHETAN VARGAS MD Oct 10, 2019 21:58
[2019-10-11 06:01] VITALS: BP 145/75
[2019-10-11] MEDS: DULoxetine HCL 20 MG CAPSULE.DR PO SCH (08:11)
[2019-10-11] MEDS: APIXABAN 5 MG TABLET. PO SCH ×2 (08:11→20:40)
[2019-10-11] MEDS: MEMANTINE 10 MG TABLET. PO SCH ×2 (08:11→20:41)
[2019-10-11] MEDS: LACTOBACILLUS RHAMNOSUS GG 1 CAPSULE. PO SCH ×2 (08:11→20:40)
[2019-10-11] MEDS: CHOLECALCIFEROL (VITAMIN D3) 1,000 UNIT TABLET PO SCH (08:11)
[2019-10-11] MEDS: DULoxetine HCL 30 MG CAPSULE.DR PO SCH (08:11)
[2019-10-11] MEDS: CARVEDILOL 12.5 MG TABLET PO SCH ×2 (08:11→17:00)
--- NOTE | 2019-10-11 12:47 | PDOC ---
Exam Note: Pramod Note: S/O: This note is a late entry for DOS 10/10/2019 covers elements not covered in my initial note. We are still waiting on the COVID-19 screen on two patients before the unit can be opened for admissions and discharges per the [facility] ([facility])/Centers for Disease Control (CDC). Discussed the patient with nursing staff, reviewed the chart. Treatment team meeting was done in the morning with social service staff Yudy in Activity Therapy, Daria ELLIS, nursing staff and myself. The patient was seen on audio- visual rounds in the evening with Amanda ELLIS. Appetite 80%. Patient slept 7 hours previous night. Reportedly the patient slipped and fell to the floor yesterday and no injury was noted but per nursing report it just hurt his pride. No suicidal ideation, remains somewhat confused. ROS: No CV, , Pulmonary, Eye system symptoms on review. MSE: He is pleasant, verbal with short-term memory deficits, smiling as I met with him. Speech is coherent. Abstraction is fair. Computation impaired. Language function intact. Mood and affect withdrawn but improved. Labs: Reviewed. Imp: Major neurocognitive disorder Alzheimer, vascular with depression. Major depressive disorder. Plan: No change from initial note. Assessment: Vital Signs/I&O: Vital Signs Date Time Temp Pulse Resp B/P (MAP) Pulse Ox O2 Delivery O2 Flow Rate FiO2 10/11/19 08:11 69 145/75 10/11/19 06:01 97.8 20 98 10/10/19 05:44 93.0 10/09/19 16:50 Room Air I & O 10/10/19 10/10/19 10/11/19 15:00 23:00 07:00 Intake Total 720 ml 480 ml Balance 720 ml 480 ml Labs: Laboratory Tests Test 10/11/19 08:06 Glucose (Fingerstick) 109 mg/dL (70-99) H Current Medications: I have reviewed the current psychotropics carefully including drug interactions. Risk benefit ratio favors no change other than as noted in my dictated progress note. Diagnosis: Problems: (1) Major neurocognitive disorder (2) Anxiety disorder (3) Dementia, vascular, with delusions (4) Dementia, vascular, with depression (5) Dementia in Alzheimer's disease with delusions (6) Dementia in Alzheimer's disease with depression (7) Impulse control disorder CHETAN VARGAS MD Oct 11, 2019 12:47
[2019-10-11 16:11] VITALS: BP 115/72
[2019-10-11] MEDS: QUEtiapine 25 MG TABLET. PO SCH ×2 (17:00→20:40)
[2019-10-11] MEDS: MIRTAZAPINE 15 MG TABLET PO SCH (20:40)
[2019-10-11] MEDS: ATORVASTATIN CALCIUM 20 MG TABLET PO SCH (20:40)
[2019-10-11] MEDS: MAGNESIUM HYDROXIDE 2,400 MG/30 ML ORAL.SUSP. PO SCH (20:40)
--- NOTE | 2019-10-11 21:58 | PDOC ---
Exam Note: Pramod Note: Please also refer to the separate dictated note~for this date of service dictated separately.~Patient seen individually. Discussed the patient with Nursing staff reviewed the chart.~Reviewed interim history and current functioning. Reviewed vital signs,~Labs/ Radiology~and current medications noted below. Continue current treatment with the changes noted in the dictated addendum note Assessment: Vital Signs/I&O: Vital Signs Date Time Temp Pulse Resp B/P (MAP) Pulse Ox O2 Delivery O2 Flow Rate FiO2 10/11/19 17:00 60 115/72 10/11/19 16:11 97.8 16 97 10/10/19 05:44 93.0 10/09/19 16:50 Room Air I & O 10/10/19 10/10/19 10/11/19 14:59 22:59 06:59 Intake Total 720 ml 480 ml Balance 720 ml 480 ml Labs: Laboratory Tests Test 10/11/19 08:06 Glucose (Fingerstick) 109 mg/dL (70-99) H Current Medications: I have reviewed the current psychotropics carefully including drug interactions. Risk benefit ratio favors no change other than as noted in my dictated progress note. Diagnosis: Problems: (1) Major neurocognitive disorder (2) Anxiety disorder (3) Dementia, vascular, with delusions (4) Dementia, vascular, with depression (5) Dementia in Alzheimer's disease with delusions (6) Dementia in Alzheimer's disease with depression (7) Impulse control disorder CHETAN VARGAS MD Oct 11, 2019 21:58
[2019-10-12 04:00] VITALS: BP 95/65
[2019-10-12 04:15] VITALS: BP 111/72
[2019-10-12 05:49] VITALS: BP 131/76
[2019-10-12 06:56] LABS: BASO # 0.1 x10^3/uL (0.0-0.2); BASO % 1 % (0-3); EOS # 0.1 x10^3/uL (0.0-0.7); EOS % 1 % (0-3); HEMATOCRIT 38.1 % (39.0-53.0); HEMOGLOBIN 12.5 g/dL (13.0-17.5); LYMPH % 13 % (24-48); MEAN CORPUSCULAR HEMOGLOBIN 29 pg (25-35); MEAN CORPUSCULAR HGB CONC 33 g/dL (31-37); MEAN CORPUSCULAR VOLUME 88 fL (79-100); MONO # 0.8 x10^3/uL (0.0-1.1); MONO % 10 % (0-9); NEUT % 76 % (31-73); PLATELET COUNT 146 x10^3/uL (140-400); RED BLOOD COUNT 4.36 x10^6/uL (4.30-5.70); RED CELL DISTRIBUTION WIDTH 15.4 % (11.5-14.5)
[2019-10-12 07:04] LABS: ALBUMIN 3.3 g/dL (3.4-5.0); ALBUMIN/GLOBULIN RATIO 0.8 (1.0-1.7); CALCIUM 9.4 mg/dL (8.5-10.1); CREATININE 1.1 mg/dL (0.7-1.3); GFR 65.6; POTASSIUM 4.6 mmol/L (3.5-5.1); TOTAL BILIRUBIN 0.3 mg/dL (0.2-1.0); TOTAL PROTEIN 7.2 g/dL (6.4-8.2)
[2019-10-12] MEDS: CARVEDILOL 12.5 MG TABLET PO SCH ×2 (08:00→17:00)
[2019-10-12] MEDS: APIXABAN 5 MG TABLET. PO SCH ×2 (08:28→20:46)
[2019-10-12] MEDS: LACTOBACILLUS RHAMNOSUS GG 1 CAPSULE. PO SCH ×2 (08:28→20:45)
[2019-10-12] MEDS: DULoxetine HCL 30 MG CAPSULE.DR PO SCH (08:28)
[2019-10-12] MEDS: MEMANTINE 10 MG TABLET. PO SCH ×2 (08:28→20:46)
[2019-10-12] MEDS: CHOLECALCIFEROL (VITAMIN D3) 1,000 UNIT TABLET PO SCH (08:28)
[2019-10-12] MEDS: DULoxetine HCL 20 MG CAPSULE.DR PO SCH (08:28)
--- NOTE | 2019-10-12 11:09 | RAD ---
EXAM: Left hand, 3 views. HISTORY: Fall. COMPARISON: None. FINDINGS: 3 views of the left hand are obtained. There is a mildly displaced intra-articular fracture at the base of the third proximal phalanx. No additional fracture is seen. There are vascular calcifications. There is no radiodense foreign body. IMPRESSION: Nondisplaced intra-articular fracture at the base of the third proximal phalanx. Electronically signed by: Letty Malloy MD (10/12/2019 11:07 AM) [facility]
[2019-10-12 16:09] VITALS: BP 112/57
[2019-10-12] MEDS: QUEtiapine 25 MG TABLET. PO SCH ×2 (17:00→20:46)
[2019-10-12] MEDS: ATORVASTATIN CALCIUM 20 MG TABLET PO SCH (20:44)
[2019-10-12] MEDS: MAGNESIUM HYDROXIDE 2,400 MG/30 ML ORAL.SUSP. PO SCH (20:44)
[2019-10-12] MEDS: MIRTAZAPINE 15 MG TABLET PO SCH (20:46)
--- NOTE | 2019-10-12 21:40 | PDOC ---
Exam Note: Pramod Note: S/O: This note is a late entry for DOS 10/11/2019 covers elements not covered in my initial note. We are still waiting on the COVID-19 screen on two patients before the unit can be opened for admissions and discharges per the [facility] ([facility])/Centers for Disease Control (CDC). Discussed the patient with nursing staff, reviewed the chart. The patient was seen on audio-visual rounds in the evening with Farhad ELLIS. Nursing report was with Beatris ELLIS. Patient reportedly took a shower and then was found on the floor. Nursing report indicate that no injuries are noted and it hurt his pride more than anything else. ROS: No CV, , Pulmonary, Eye system symptoms on review. MSE: Oriented reasonably. Speech is coherent. Abstraction is fair. Computation impaired. Language function intact. Mood and affect withdrawn. Labs: Reviewed. Imp: Major neurocognitive disorder Alzheimer, vascular with depression. Major depressive disorder. Plan: No change from initial note. Assessment: Vital Signs/I&O: Vital Signs Date Time Temp Pulse Resp B/P (MAP) Pulse Ox O2 Delivery O2 Flow Rate FiO2 10/12/19 17:00 75 112/57 10/12/19 16:09 98.2 18 98 10/10/19 05:44 93.0 10/09/19 16:50 Room Air I & O 10/11/19 10/11/19 10/12/19 15:00 23:00 07:00 Intake Total 600 ml 360 ml Balance 600 ml 360 ml Labs: Laboratory Tests Test 10/12/19 06:21 10/12/19 07:27 White Blood Count 8.0 x10^3/uL (4.0-11.0) Red Blood Count 4.36 x10^6/uL (4.30-5.70) Hemoglobin 12.5 g/dL (13.0-17.5) L Hematocrit 38.1 % (39.0-53.0) L Mean Corpuscular Volume 88 fL (79-100) Mean Corpuscular Hemoglobin 29 pg (25-35) Mean Corpuscular Hemoglobin Concent 33 g/dL (31-37) Red Cell Distribution Width 15.4 % (11.5-14.5) H Platelet Count 146 x10^3/uL (140-400) Neutrophils (%) (Auto) 76 % (31-73) H Lymphocytes (%) (Auto) 13 % (24-48) L Monocytes (%) (Auto) 10 % (0-9) H Eosinophils (%) (Auto) 1 % (0-3) Basophils (%) (Auto) 1 % (0-3) Neutrophils # (Auto) 6.0 x10^3uL (1.8-7.7) Lymphocytes # (Auto) 1.0 x10^3/uL (1.0-4.8) Monocytes # (Auto) 0.8 x10^3/uL (0.0-1.1) Eosinophils # (Auto) 0.1 x10^3/uL (0.0-0.7) Basophils # (Auto) 0.1 x10^3/uL (0.0-0.2) Sodium Level 140 mmol/L (136-145) Potassium Level 4.6 mmol/L (3.5-5.1) Chloride Level 103 mmol/L (98-107) Carbon Dioxide Level 30 mmol/L (21-32) Anion Gap 7 (6-14) Blood Urea Nitrogen 24 mg/dL (8-26) Creatinine 1.1 mg/dL (0.7-1.3) Estimated GFR (Cockcroft-Gault) 65.6 BUN/Creatinine Ratio 22 (6-20) H Glucose Level 144 mg/dL (70-99) H Calcium Level 9.4 mg/dL (8.5-10.1) Total Bilirubin 0.3 mg/dL (0.2-1.0) Aspartate Amino Transferase (AST) 42 U/L (15-37) H Alanine Aminotransferase (ALT) 43 U/L (16-63) Alkaline Phosphatase 146 U/L (46-116) H Total Protein 7.2 g/dL (6.4-8.2) Albumin 3.3 g/dL (3.4-5.0) L Albumin/Globulin Ratio 0.8 (1.0-1.7) L Glucose (Fingerstick) 119 mg/dL (70-99) H Current Medications: I have reviewed the current psychotropics carefully including drug interactions. Risk benefit ratio favors no change other than as noted in my dictated progress note. Diagnosis: Problems: (1) Major neurocognitive disorder (2) Anxiety disorder (3) Dementia, vascular, with delusions (4) Dementia, vascular, with depression (5) Dementia in Alzheimer's disease with delusions (6) Dementia in Alzheimer's disease with depression (7) Impulse control disorder CHETAN VARGAS MD Oct 12, 2019 21:40
--- NOTE | 2019-10-12 21:57 | PDOC ---
Exam Note: Pramod Note: Please also refer to the separate dictated note~for this date of service dictated separately.~Patient seen individually. Discussed the patient with Nursing staff reviewed the chart.~Reviewed interim history and current functioning. Reviewed vital signs,~Labs/ Radiology~and current medications noted below. Continue current treatment with the changes noted in the dictated addendum note Assessment: Vital Signs/I&O: Vital Signs Date Time Temp Pulse Resp B/P (MAP) Pulse Ox O2 Delivery O2 Flow Rate FiO2 10/12/19 17:00 75 112/57 10/12/19 16:09 98.2 18 98 10/10/19 05:44 93.0 10/09/19 16:50 Room Air I & O 10/11/19 10/11/19 10/12/19 15:00 23:00 07:00 Intake Total 600 ml 360 ml Balance 600 ml 360 ml Labs: Laboratory Tests Test 10/12/19 06:21 10/12/19 07:27 White Blood Count 8.0 x10^3/uL (4.0-11.0) Red Blood Count 4.36 x10^6/uL (4.30-5.70) Hemoglobin 12.5 g/dL (13.0-17.5) L Hematocrit 38.1 % (39.0-53.0) L Mean Corpuscular Volume 88 fL (79-100) Mean Corpuscular Hemoglobin 29 pg (25-35) Mean Corpuscular Hemoglobin Concent 33 g/dL (31-37) Red Cell Distribution Width 15.4 % (11.5-14.5) H Platelet Count 146 x10^3/uL (140-400) Neutrophils (%) (Auto) 76 % (31-73) H Lymphocytes (%) (Auto) 13 % (24-48) L Monocytes (%) (Auto) 10 % (0-9) H Eosinophils (%) (Auto) 1 % (0-3) Basophils (%) (Auto) 1 % (0-3) Neutrophils # (Auto) 6.0 x10^3uL (1.8-7.7) Lymphocytes # (Auto) 1.0 x10^3/uL (1.0-4.8) Monocytes # (Auto) 0.8 x10^3/uL (0.0-1.1) Eosinophils # (Auto) 0.1 x10^3/uL (0.0-0.7) Basophils # (Auto) 0.1 x10^3/uL (0.0-0.2) Sodium Level 140 mmol/L (136-145) Potassium Level 4.6 mmol/L (3.5-5.1) Chloride Level 103 mmol/L (98-107) Carbon Dioxide Level 30 mmol/L (21-32) Anion Gap 7 (6-14) Blood Urea Nitrogen 24 mg/dL (8-26) Creatinine 1.1 mg/dL (0.7-1.3) Estimated GFR (Cockcroft-Gault) 65.6 BUN/Creatinine Ratio 22 (6-20) H Glucose Level 144 mg/dL (70-99) H Calcium Level 9.4 mg/dL (8.5-10.1) Total Bilirubin 0.3 mg/dL (0.2-1.0) Aspartate Amino Transferase (AST) 42 U/L (15-37) H Alanine Aminotransferase (ALT) 43 U/L (16-63) Alkaline Phosphatase 146 U/L (46-116) H Total Protein 7.2 g/dL (6.4-8.2) Albumin 3.3 g/dL (3.4-5.0) L Albumin/Globulin Ratio 0.8 (1.0-1.7) L Glucose (Fingerstick) 119 mg/dL (70-99) H Current Medications: I have reviewed the current psychotropics carefully including drug interactions. Risk benefit ratio favors no change other than as noted in my dictated progress note. Diagnosis: Problems: (1) Major neurocognitive disorder (2) Anxiety disorder (3) Dementia, vascular, with delusions (4) Dementia, vascular, with depression (5) Dementia in Alzheimer's disease with delusions (6) Dementia in Alzheimer's disease with depression (7) Impulse control disorder CHETAN VARGAS MD Oct 12, 2019 21:57
[2019-10-13 05:58] VITALS: BP 138/77
[2019-10-13 06:31] LABS: BASO % 1 % (0-3); EOS # 0.1 x10^3/uL (0.0-0.7); EOS % 2 % (0-3); HEMATOCRIT 38.2 % (39.0-53.0); HEMOGLOBIN 12.2 g/dL (13.0-17.5); LYMPH # 1.1 x10^3/uL (1.0-4.8); LYMPH % 22 % (24-48); MEAN CORPUSCULAR HEMOGLOBIN 28 pg (25-35); MEAN CORPUSCULAR HGB CONC 32 g/dL (31-37); MEAN CORPUSCULAR VOLUME 88 fL (79-100); MONO # 0.5 x10^3/uL (0.0-1.1); MONO % 11 % (0-9); NEUT # 3.1 x10^3uL (1.8-7.7); NEUT % 64 % (31-73); PLATELET COUNT 125 x10^3/uL (140-400); RED BLOOD COUNT 4.34 x10^6/uL (4.30-5.70); RED CELL DISTRIBUTION WIDTH 15.2 % (11.5-14.5); WHITE BLOOD COUNT 4.9 x10^3/uL (4.0-11.0)
[2019-10-13 06:44] LABS: ALBUMIN 2.9 g/dL (3.4-5.0); ALBUMIN/GLOBULIN RATIO 0.8 (1.0-1.7); CALCIUM 9.1 mg/dL (8.5-10.1); CREATININE 0.9 mg/dL (0.7-1.3); GFR 82.7; POTASSIUM 4.5 mmol/L (3.5-5.1); TOTAL BILIRUBIN 0.4 mg/dL (0.2-1.0); TOTAL PROTEIN 6.6 g/dL (6.4-8.2)
[2019-10-13] MEDS: APIXABAN 5 MG TABLET. PO SCH ×2 (07:38→20:17)
[2019-10-13] MEDS: DULoxetine HCL 30 MG CAPSULE.DR PO SCH (07:38)
[2019-10-13] MEDS: DULoxetine HCL 20 MG CAPSULE.DR PO SCH (07:38)
[2019-10-13] MEDS: CHOLECALCIFEROL (VITAMIN D3) 1,000 UNIT TABLET PO SCH (07:38)
[2019-10-13] MEDS: CARVEDILOL 12.5 MG TABLET PO SCH ×2 (07:39→17:00)
[2019-10-13] MEDS: LACTOBACILLUS RHAMNOSUS GG 1 CAPSULE. PO SCH ×2 (07:39→20:16)
[2019-10-13] MEDS: MEMANTINE 10 MG TABLET. PO SCH ×2 (07:39→20:16)
[2019-10-13 16:00] VITALS: BP 138/78
[2019-10-13] MEDS: QUEtiapine 25 MG TABLET. PO SCH ×2 (17:00→20:16)
[2019-10-13] MEDS: MAGNESIUM HYDROXIDE 2,400 MG/30 ML ORAL.SUSP. PO SCH (20:16)
[2019-10-13] MEDS: MIRTAZAPINE 15 MG TABLET PO SCH (20:17)
[2019-10-13] MEDS: ATORVASTATIN CALCIUM 20 MG TABLET PO SCH (20:17)
[2019-10-14 06:16] VITALS: BP 167/65
[2019-10-14] MEDS: APIXABAN 5 MG TABLET. PO SCH ×2 (08:26→20:24)
[2019-10-14] MEDS: DULoxetine HCL 30 MG CAPSULE.DR PO SCH (08:26)
[2019-10-14] MEDS: DULoxetine HCL 20 MG CAPSULE.DR PO SCH (08:26)
[2019-10-14] MEDS: MEMANTINE 10 MG TABLET. PO SCH ×2 (08:26→20:23)
[2019-10-14] MEDS: CARVEDILOL 12.5 MG TABLET PO SCH ×2 (08:27→17:14)
[2019-10-14] MEDS: CHOLECALCIFEROL (VITAMIN D3) 1,000 UNIT TABLET PO SCH (08:27)
[2019-10-14] MEDS: LACTOBACILLUS RHAMNOSUS GG 1 CAPSULE. PO SCH ×2 (08:27→20:23)
--- NOTE | 2019-10-14 08:28 | PDOC ---
Exam Note: Pramod Note: S/O: This note is a late entry for DOS 10/12/2019 covers elements not covered in my initial note. Discussed the patient with nursing staff, reviewed the chart. The patient was seen on audio-visual rounds in the evening with Farhad ELLIS. Nursing report with Sarahy ELLIS. Previous evening the patient had syncopal e pisode. Blood pressure was low. Defer to Dr. Watson/Trevon. He is complaining of left hand hurting, has a fractured finger, non-displaced fracture. Dr. Cortez was consulted and stated he could not come in to see the patient but finger could be peyton taped which nursing staff have done. ROS: No CV, , Pulmonary, Eye system symptoms on review. MSE: Oriented reasonably. Speech is coherent. Abstraction is fair. Computation impaired. Language function intact. Mood and affect withdrawn. Labs: Reviewed. Imp: Major neurocognitive disorder Alzheimer, vascular with depression. Major depressive disorder. Plan: Continue psychotropics unchanged from initial note. Assessment: Vital Signs/I&O: Vital Signs Date Time Temp Pulse Resp B/P (MAP) Pulse Ox O2 Delivery O2 Flow Rate FiO2 10/14/19 06:16 97.9 82 16 167/65 (99) 97 10/10/19 05:44 93.0 10/09/19 16:50 Room Air I & O 10/13/19 10/13/19 10/14/19 15:00 23:00 07:00 Intake Total 840 ml 480 ml 240 ml Balance 840 ml 480 ml 240 ml Labs: Laboratory Tests Test 10/14/19 07:31 Glucose (Fingerstick) 178 mg/dL (70-99) H Current Medications: I have reviewed the current psychotropics carefully including drug interactions. Risk benefit ratio favors no change other than as noted in my dictated progress note. Diagnosis: Problems: (1) Major neurocognitive disorder (2) Anxiety disorder (3) Dementia, vascular, with delusions (4) Dementia, vascular, with depression (5) Dementia in Alzheimer's disease with delusions (6) Dementia in Alzheimer's disease with depression (7) Impulse control disorder CHETAN VARGAS MD Oct 14, 2019 08:28
--- NOTE | 2019-10-14 08:53 | PDOC ---
Exam Note: Pramod Note: S/O: This note is a late entry for DOS 10/13/2019 covers elements not covered in my initial note. Discussed the patient with nursing staff, reviewed the chart. The patient was seen on audio-visual rounds in the evening with Juli ELLIS. Nursing report was with Sarahy ELLIS. He has pulled off his peyton tape but does not complain of any pain. His daughter has been informed of his finger fracture. ROS: No CV, , Pulmonary, Eye system symptoms on review. MSE: Oriented reasonably. Speech is coherent. Abstraction is fair. Computation impaired. Language function intact. Mood and affect withdrawn. Labs: Reviewed. Imp: Major neurocognitive disorder Alzheimer, vascular with depression. Major depressive disorder. Plan: Continue psychotropics unchanged from initial note. Assessment: Vital Signs/I&O: Vital Signs Date Time Temp Pulse Resp B/P (MAP) Pulse Ox O2 Delivery O2 Flow Rate FiO2 10/14/19 08:27 82 167/65 10/14/19 06:16 97.9 16 97 10/10/19 05:44 93.0 10/09/19 16:50 Room Air I & O 10/13/19 10/13/19 10/14/19 15:00 23:00 07:00 Intake Total 840 ml 480 ml 240 ml Balance 840 ml 480 ml 240 ml Labs: Laboratory Tests Test 10/14/19 07:31 Glucose (Fingerstick) 178 mg/dL (70-99) H Current Medications: I have reviewed the current psychotropics carefully including drug interactions. Risk benefit ratio favors no change other than as noted in my dictated progress note. Diagnosis: Problems: (1) Major neurocognitive disorder (2) Anxiety disorder (3) Dementia, vascular, with delusions (4) Dementia, vascular, with depression (5) Dementia in Alzheimer's disease with delusions (6) Dementia in Alzheimer's disease with depression (7) Impulse control disorder CHETAN VARGAS MD Oct 14, 2019 08:53
[2019-10-14 15:39] VITALS: BP 133/83
[2019-10-14] MEDS: MIRTAZAPINE 15 MG TABLET PO SCH (20:23)
[2019-10-14] MEDS: ATORVASTATIN CALCIUM 20 MG TABLET PO SCH (20:23)
[2019-10-14] MEDS: QUEtiapine 25 MG TABLET. PO SCH (20:24)
[2019-10-14] MEDS: MAGNESIUM HYDROXIDE 2,400 MG/30 ML ORAL.SUSP. PO SCH (20:24)
--- NOTE | 2019-10-14 22:10 | PDOC ---
Exam Note: Pramod Note: Please also refer to the separate dictated note~for this date of service dictated separately.~Patient seen individually. Discussed the patient with Nursing staff reviewed the chart.~Reviewed interim history and current functioning. Reviewed vital signs,~Labs/ Radiology~and current medications noted below. Continue current treatment with the changes noted in the dictated addendum note Assessment: Vital Signs/I&O: Vital Signs Date Time Temp Pulse Resp B/P (MAP) Pulse Ox O2 Delivery O2 Flow Rate FiO2 10/14/19 17:14 66 133/83 10/14/19 15:39 98.1 16 100 Room Air 10/10/19 05:44 93.0 I & O 10/13/19 10/13/19 10/14/19 15:00 23:00 07:00 Intake Total 840 ml 480 ml 240 ml Balance 840 ml 480 ml 240 ml Labs: Laboratory Tests Test 10/14/19 07:31 Glucose (Fingerstick) 178 mg/dL (70-99) H Current Medications: I have reviewed the current psychotropics carefully including drug interactions. Risk benefit ratio favors no change other than as noted in my dictated progress note. Diagnosis: Problems: (1) Major neurocognitive disorder (2) Anxiety disorder (3) Dementia, vascular, with delusions (4) Dementia, vascular, with depression (5) Dementia in Alzheimer's disease with delusions (6) Dementia in Alzheimer's disease with depression (7) Impulse control disorder CHETAN VARGAS MD Oct 14, 2019 22:10
[2019-10-15 06:17] VITALS: BP 134/61
[2019-10-15] MEDS: APIXABAN 5 MG TABLET. PO SCH ×2 (08:33→20:03)
[2019-10-15] MEDS: DULoxetine HCL 20 MG CAPSULE.DR PO SCH (08:33)
[2019-10-15] MEDS: LACTOBACILLUS RHAMNOSUS GG 1 CAPSULE. PO SCH ×2 (08:33→20:02)
[2019-10-15] MEDS: MEMANTINE 10 MG TABLET. PO SCH ×2 (08:33→20:03)
[2019-10-15] MEDS: DULoxetine HCL 30 MG CAPSULE.DR PO SCH (08:33)
[2019-10-15] MEDS: CHOLECALCIFEROL (VITAMIN D3) 1,000 UNIT TABLET PO SCH (08:33)
[2019-10-15] MEDS: CARVEDILOL 12.5 MG TABLET PO SCH ×2 (08:33→16:46)
[2019-10-15 15:41] VITALS: BP 122/72
[2019-10-15] MEDS: MAGNESIUM HYDROXIDE 2,400 MG/30 ML ORAL.SUSP. PO SCH (20:02)
[2019-10-15] MEDS: ATORVASTATIN CALCIUM 20 MG TABLET PO SCH (20:02)
[2019-10-15] MEDS: MIRTAZAPINE 15 MG TABLET PO SCH (20:03)
[2019-10-15] MEDS: QUEtiapine 25 MG TABLET. PO SCH (20:03)
--- NOTE | 2019-10-15 21:44 | PDOC ---
Exam Note: Pramod Note: Please also refer to the separate dictated note~for this date of service dictated separately.~Patient seen individually. Discussed the patient with Nursing staff reviewed the chart.~Reviewed interim history and current functioning. Reviewed vital signs,~Labs/ Radiology~and current medications noted below. Continue current treatment with the changes noted in the dictated addendum note Assessment: Vital Signs/I&O: Vital Signs Date Time Temp Pulse Resp B/P (MAP) Pulse Ox O2 Delivery O2 Flow Rate FiO2 10/15/19 16:46 62 122/72 10/15/19 15:41 97.8 16 99 Room Air 10/10/19 05:44 93.0 I & O 10/14/19 10/14/19 10/15/19 15:00 23:00 07:00 Intake Total 840 ml 720 ml Balance 840 ml 720 ml Current Medications: I have reviewed the current psychotropics carefully including drug interactions. Risk benefit ratio favors no change other than as noted in my dictated progress note. Diagnosis: Problems: (1) Major neurocognitive disorder (2) Anxiety disorder (3) Dementia, vascular, with delusions (4) Dementia, vascular, with depression (5) Dementia in Alzheimer's disease with delusions (6) Dementia in Alzheimer's disease with depression (7) Impulse control disorder CHETAN VARGAS MD Oct 15, 2019 21:44
[2019-10-16 06:16] VITALS: BP 129/69
--- NOTE | 2019-10-16 07:45 | PDOC ---
Exam Note: Pramod Note: S/O: This note is a late entry for DOS 10/14/2019 covers elements not covered in my initial note. Discussed the patient with nursing staff, reviewed the chart. The patient was seen on audio-visual rounds in the evening with Beatris ELLIS. Nursing report was with Beatris ELLIS. He has been moved to room no. 204 because another patient has turned positive with COVID-19 on the unit and each patient has been given an individual room. He is complaining of less pain in his hand where he has a non-displaced fracture. I received a message [facility] wondering if some of his psychotropics could be reduced since he has a propensity for falls during the day. ROS: No CV, , Pulmonary, Eye system symptoms on review. MSE: Oriented reasonably. Speech is coherent. Abstraction is fair. Computation impaired. Language function intact. Mood and affect withdrawn. Labs: Reviewed. Imp: Major neurocognitive disorder Alzheimer, vascular with depression. Major depressive disorder. Plan: Stop the Seroquel 12.5 mg at 1700 hours. Continue 25 mg h.s. Continue rest unchanged from initial note. Assessment: Vital Signs/I&O: VS - Last 72 Hours, by Label Date Time Temp Pulse Resp B/P (MAP) Pulse Ox O2 Delivery O2 Flow Rate FiO2 10/16/19 06:16 98.2 64 18 129/69 (89) 97 10/15/19 16:46 62 122/72 10/15/19 15:41 97.8 62 16 122/72 (89) 99 Room Air 10/15/19 08:33 72 134/61 10/15/19 06:17 97.9 72 18 134/61 (85) 97 10/14/19 17:14 66 133/83 10/14/19 15:39 98.1 66 16 133/83 (100) 100 Room Air 10/14/19 08:27 82 167/65 10/14/19 06:16 97.9 82 16 167/65 (99) 97 10/13/19 17:00 68 138/78 10/13/19 16:00 97.7 68 18 138/78 (98) 98 Vital Signs Date Time Temp Pulse Resp B/P (MAP) Pulse Ox O2 Delivery O2 Flow Rate FiO2 10/16/19 06:16 98.2 64 18 129/69 (89) 97 10/15/19 15:41 Room Air I & O 10/15/19 10/15/19 10/16/19 15:00 23:00 07:00 Intake Total 600 ml 720 ml Balance 600 ml 720 ml Current Medications: I have reviewed the current psychotropics carefully including drug interactions. Risk benefit ratio favors no change other than as noted in my dictated progress note. Diagnosis: Problems: (1) Major neurocognitive disorder (2) Anxiety disorder (3) Dementia, vascular, with delusions (4) Dementia, vascular, with depression (5) Dementia in Alzheimer's disease with delusions (6) Dementia in Alzheimer's disease with depression (7) Impulse control disorder CHETAN VARGAS MD Oct 16, 2019 07:45
[2019-10-16] MEDS: DULoxetine HCL 20 MG CAPSULE.DR PO SCH (07:58)
[2019-10-16] MEDS: LACTOBACILLUS RHAMNOSUS GG 1 CAPSULE. PO SCH ×2 (07:58→19:45)
[2019-10-16] MEDS: CHOLECALCIFEROL (VITAMIN D3) 1,000 UNIT TABLET PO SCH (07:58)
[2019-10-16] MEDS: APIXABAN 5 MG TABLET. PO SCH ×2 (07:59→19:45)
[2019-10-16] MEDS: DULoxetine HCL 30 MG CAPSULE.DR PO SCH (07:59)
[2019-10-16] MEDS: CARVEDILOL 12.5 MG TABLET PO SCH ×2 (07:59→16:06)
[2019-10-16] MEDS: MEMANTINE 10 MG TABLET. PO SCH ×2 (07:59→19:45)
--- NOTE | 2019-10-16 08:07 | PDOC ---
Exam Note: Pramod Note: S/O: This note is a late entry for DOS 10/15/2019 covers elements not covered in my initial note. Discussed the patient with nursing staff, reviewed the chart. The patient was seen on audio-visual rounds in the evening with Farhad ELLIS. Nursing report was with Beatris ELLIS. He was pleasant, compliant. No falls ar e noted. ROS: Gait is more steady. No CV, , Pulmonary, Eye system symptoms on review. MSE: Oriented reasonably. Speech is coherent. Abstraction is fair. Computation impaired. Language function intact. Mood and affect withdrawn. Labs: Reviewed. Imp: Major neurocognitive disorder Alzheimer, vascular with depression. Major depressive disorder. Plan: Continue psychotropics unchanged from initial note. Assessment: Vital Signs/I&O: Vital Signs Date Time Temp Pulse Resp B/P (MAP) Pulse Ox O2 Delivery O2 Flow Rate FiO2 10/16/19 07:59 64 129/69 10/16/19 06:16 98.2 18 97 10/15/19 15:41 Room Air I & O 10/15/19 10/15/19 10/16/19 15:00 23:00 07:00 Intake Total 600 ml 720 ml Balance 600 ml 720 ml Current Medications: I have reviewed the current psychotropics carefully including drug interactions. Risk benefit ratio favors no change other than as noted in my dictated progress note. Diagnosis: Problems: (1) Major neurocognitive disorder (2) Anxiety disorder (3) Dementia, vascular, with delusions (4) Dementia, vascular, with depression (5) Dementia in Alzheimer's disease with delusions (6) Dementia in Alzheimer's disease with depression (7) Impulse control disorder CHETAN VARGAS MD Oct 16, 2019 08:06
[2019-10-16 15:51] VITALS: BP 149/77
[2019-10-16] MEDS: ZINC OXIDE 20% TOPICAL OINTMENT 28GM TUBE. TP PRN (17:42)
[2019-10-16] MEDS: ATORVASTATIN CALCIUM 20 MG TABLET PO SCH (19:44)
[2019-10-16] MEDS: MAGNESIUM HYDROXIDE 2,400 MG/30 ML ORAL.SUSP. PO SCH (19:45)
[2019-10-16] MEDS: MIRTAZAPINE 15 MG TABLET PO SCH (19:45)
[2019-10-16] MEDS: QUEtiapine 25 MG TABLET. PO SCH (19:45)
--- NOTE | 2019-10-16 22:00 | PDOC ---
Exam Note: Pramod Note: Please also refer to the separate dictated note~for this date of service dictated separately.~Patient seen individually. Discussed the patient with Nursing staff reviewed the chart.~Reviewed interim history and current functioning. Reviewed vital signs,~Labs/ Radiology~and current medications noted below. Continue current treatment with the changes noted in the dictated addendum note Assessment: Vital Signs/I&O: Vital Signs Date Time Temp Pulse Resp B/P (MAP) Pulse Ox O2 Delivery O2 Flow Rate FiO2 10/16/19 16:06 77 149/77 10/16/19 15:51 98.3 18 98 10/15/19 15:41 Room Air I & O 10/15/19 10/15/19 10/16/19 14:59 22:59 06:59 Intake Total 600 ml 720 ml Balance 600 ml 720 ml Current Medications: I have reviewed the current psychotropics carefully including drug interactions. Risk benefit ratio favors no change other than as noted in my dictated progress note. Diagnosis: Problems: (1) Major neurocognitive disorder (2) Anxiety disorder (3) Dementia, vascular, with delusions (4) Dementia, vascular, with depression (5) Dementia in Alzheimer's disease with delusions (6) Dementia in Alzheimer's disease with depression (7) Impulse control disorder CHETAN VARGAS MD Oct 16, 2019 22:00
[2019-10-17 05:34] VITALS: BP 141/77
[2019-10-17] MEDS: MEMANTINE 10 MG TABLET. PO SCH ×2 (08:14→19:22)
[2019-10-17] MEDS: CHOLECALCIFEROL (VITAMIN D3) 1,000 UNIT TABLET PO SCH (08:14)
[2019-10-17] MEDS: DULoxetine HCL 20 MG CAPSULE.DR PO SCH (08:14)
[2019-10-17] MEDS: APIXABAN 5 MG TABLET. PO SCH ×2 (08:14→19:22)
[2019-10-17] MEDS: LACTOBACILLUS RHAMNOSUS GG 1 CAPSULE. PO SCH ×2 (08:14→19:22)
[2019-10-17] MEDS: DULoxetine HCL 30 MG CAPSULE.DR PO SCH (08:14)
[2019-10-17] MEDS: CARVEDILOL 12.5 MG TABLET PO SCH ×2 (08:15→16:22)
[2019-10-17] MEDS: ZINC OXIDE 20% TOPICAL OINTMENT 28GM TUBE. TP PRN (09:27)
--- NOTE | 2019-10-17 09:43 | PDOC ---
Exam Note: Pramod Note: S/O: This note is a late entry for DOS 10/16/2019 covers elements not covered in my initial note. Discussed the patient with nursing staff, reviewed the chart. The patient was seen on audio-visual rounds in the evening with Beatris ELLIS. Nursing report was with Beatris ELLIS. He was calm, cooperative, ambulating, complains of some pain in his hand but better than before. He seemed to remember that he had a fall in the shower but did not quite remember when it was. ROS: He does complain of pain in his hand. No CV, , Pulmonary, Eye system symptoms on review. MSE: Oriented reasonably. Speech is coherent. Abstraction is fair. Computation impaired. Language function intact. Mood and affect withdrawn. Labs: Reviewed. Imp: Major neurocognitive disorder Alzheimer, vascular with depression. Major depressive disorder. Plan: Continue psychotropics unchanged from initial note. Assessment: Vital Signs/I&O: Vital Signs Date Time Temp Pulse Resp B/P (MAP) Pulse Ox O2 Delivery O2 Flow Rate FiO2 10/17/19 08:15 65 141/77 10/17/19 05:34 97.9 18 98 Room Air I & O 10/16/19 10/16/19 10/17/19 15:00 23:00 07:00 Intake Total 960 ml 480 ml Balance 960 ml 480 ml Labs: Laboratory Tests Test 10/17/19 08:40 Glucose (Fingerstick) 151 mg/dL (70-99) H Current Medications: I have reviewed the current psychotropics carefully including drug interactions. Risk benefit ratio favors no change other than as noted in my dictated progress note. Diagnosis: Problems: (1) Major neurocognitive disorder (2) Anxiety disorder (3) Dementia, vascular, with delusions (4) Dementia, vascular, with depression (5) Dementia in Alzheimer's disease with delusions (6) Dementia in Alzheimer's disease with depression (7) Impulse control disorder CHETAN VARGAS MD Oct 17, 2019 09:43
[2019-10-17 15:45] VITALS: BP 116/67
[2019-10-17] MEDS: ATORVASTATIN CALCIUM 20 MG TABLET PO SCH (19:22)
[2019-10-17] MEDS: QUEtiapine 25 MG TABLET. PO SCH (19:22)
[2019-10-17] MEDS: MIRTAZAPINE 15 MG TABLET PO SCH (19:22)
[2019-10-17] MEDS: MAGNESIUM HYDROXIDE 2,400 MG/30 ML ORAL.SUSP. PO SCH (19:22)
--- NOTE | 2019-10-17 22:03 | PDOC ---
Exam Note: Pramod Note: Please also refer to the separate dictated note~for this date of service dictated separately.~Patient seen individually. Discussed the patient with Nursing staff reviewed the chart.~Reviewed interim history and current functioning. Reviewed vital signs,~Labs/ Radiology~and current medications noted below. Continue current treatment with the changes noted in the dictated addendum note Assessment: Vital Signs/I&O: Vital Signs Date Time Temp Pulse Resp B/P (MAP) Pulse Ox O2 Delivery O2 Flow Rate FiO2 10/17/19 16:22 69 116/67 10/17/19 15:45 98.3 16 97 10/17/19 05:34 Room Air I & O 10/16/19 10/16/19 10/17/19 15:00 23:00 07:00 Intake Total 960 ml 480 ml Balance 960 ml 480 ml Labs: Laboratory Tests Test 10/17/19 08:40 Glucose (Fingerstick) 151 mg/dL (70-99) H Current Medications: I have reviewed the current psychotropics carefully including drug interactions. Risk benefit ratio favors no change other than as noted in my dictated progress note. Diagnosis: Problems: (1) Major neurocognitive disorder (2) Anxiety disorder (3) Dementia, vascular, with delusions (4) Dementia, vascular, with depression (5) Dementia in Alzheimer's disease with delusions (6) Dementia in Alzheimer's disease with depression (7) Impulse control disorder CHETAN VARGAS MD Oct 17, 2019 22:03
[2019-10-18 06:02] VITALS: BP 130/71
[2019-10-18] MEDS: CARVEDILOL 12.5 MG TABLET PO SCH ×2 (08:13→17:00)
[2019-10-18] MEDS: MEMANTINE 10 MG TABLET. PO SCH ×2 (08:13→20:41)
[2019-10-18] MEDS: LACTOBACILLUS RHAMNOSUS GG 1 CAPSULE. PO SCH ×2 (08:13→20:40)
[2019-10-18] MEDS: DULoxetine HCL 30 MG CAPSULE.DR PO SCH (08:13)
[2019-10-18] MEDS: DULoxetine HCL 20 MG CAPSULE.DR PO SCH (08:13)
[2019-10-18] MEDS: CHOLECALCIFEROL (VITAMIN D3) 1,000 UNIT TABLET PO SCH (08:13)
[2019-10-18] MEDS: APIXABAN 5 MG TABLET. PO SCH ×2 (08:14→20:41)
[2019-10-18 15:48] VITALS: BP 119/69
[2019-10-18] MEDS: ATORVASTATIN CALCIUM 20 MG TABLET PO SCH (20:40)
[2019-10-18] MEDS: QUEtiapine 25 MG TABLET. PO SCH (20:40)
[2019-10-18] MEDS: MIRTAZAPINE 15 MG TABLET PO SCH (20:40)
[2019-10-18] MEDS: MAGNESIUM HYDROXIDE 2,400 MG/30 ML ORAL.SUSP. PO SCH (20:41)
--- NOTE | 2019-10-18 22:09 | PDOC ---
Exam Note: Pramod Note: Please also refer to the separate dictated note~for this date of service dictated separately.~Patient seen individually. Discussed the patient with Nursing staff reviewed the chart.~Reviewed interim history and current functioning. Reviewed vital signs,~Labs/ Radiology~and current medications noted below. Continue current treatment with the changes noted in the dictated addendum note Assessment: Vital Signs/I&O: Vital Signs Date Time Temp Pulse Resp B/P (MAP) Pulse Ox O2 Delivery O2 Flow Rate FiO2 10/18/19 17:00 70 119/69 10/18/19 15:48 97.7 16 95 10/17/19 05:34 Room Air I & O 10/17/19 10/17/19 10/18/19 15:00 23:00 07:00 Intake Total 720 ml 480 ml Balance 720 ml 480 ml Labs: Laboratory Tests Test 10/18/19 07:49 Glucose (Fingerstick) 123 mg/dL (70-99) H Current Medications: I have reviewed the current psychotropics carefully including drug interactions. Risk benefit ratio favors no change other than as noted in my dictated progress note. Diagnosis: Problems: (1) Major neurocognitive disorder (2) Anxiety disorder (3) Dementia, vascular, with delusions (4) Dementia, vascular, with depression (5) Dementia in Alzheimer's disease with delusions (6) Dementia in Alzheimer's disease with depression (7) Impulse control disorder CHETAN VARGAS MD Oct 18, 2019 22:09
[2019-10-19 05:47] VITALS: BP 134/71
[2019-10-19] MEDS: DULoxetine HCL 20 MG CAPSULE.DR PO SCH (07:43)
[2019-10-19] MEDS: LACTOBACILLUS RHAMNOSUS GG 1 CAPSULE. PO SCH ×2 (07:43→19:29)
[2019-10-19] MEDS: DULoxetine HCL 30 MG CAPSULE.DR PO SCH (07:43)
[2019-10-19] MEDS: MEMANTINE 10 MG TABLET. PO SCH ×2 (07:43→19:30)
[2019-10-19] MEDS: APIXABAN 5 MG TABLET. PO SCH ×2 (07:43→19:29)
[2019-10-19] MEDS: CHOLECALCIFEROL (VITAMIN D3) 1,000 UNIT TABLET PO SCH (07:43)
[2019-10-19] MEDS: CARVEDILOL 12.5 MG TABLET PO SCH ×2 (07:44→17:13)
--- NOTE | 2019-10-19 07:50 | PDOC ---
Exam Note: Pramod Note: S/O: This note is a late entry for DOS 10/17/2019 covers elements not covered in my initial note. Discussed the patient with treatment team meeting with the entire team in the morning including Rocio, social service staff, nursing staff, and myself reviewed the chart. Also met with the patient indiv idually in the evening on audio-visual rounds. Nursing report was with Amanda ELLIS. I have been informed that every patient will be tested in sequence for COVID-19 and disposition plans would be determined by the result of the testing. He slept 6 hours average. Appetite is 95%. He has been somewhat pleasant but previous evening he was sarcastic but redirectable. ROS: No CV, , Pulmonary, Eye system symptoms on review. MSE: I met with the patient in the evening. He was pleasant, verbal, interactive. Short-term memory deficits are evident. He has been ambulating on his own. Gait is steady. No further falls have been noted. Speech is coherent. Abstraction is fair. Computation impaired. Language function intact. Mood and affect withdrawn. No psychotic symptoms, suicidal or homicidal ideation. Labs: Reviewed. Imp: Major neurocognitive disorder Alzheimer, vascular with depression. Major depressive disorder. Plan: Continue psychotropics unchanged from initial note. Assessment: Vital Signs/I&O: Vital Signs Date Time Temp Pulse Resp B/P (MAP) Pulse Ox O2 Delivery O2 Flow Rate FiO2 10/19/19 07:44 80 134/71 10/19/19 05:47 97.8 16 99 10/17/19 05:34 Room Air I & O 10/18/19 10/18/19 10/19/19 15:00 23:00 07:00 Intake Total 600 ml 660 ml Balance 600 ml 660 ml Current Medications: I have reviewed the current psychotropics carefully including drug interactions. Risk benefit ratio favors no change other than as noted in my dictated progress note. Diagnosis: Problems: (1) Major neurocognitive disorder (2) Anxiety disorder (3) Dementia, vascular, with delusions (4) Dementia, vascular, with depression (5) Dementia in Alzheimer's disease with delusions (6) Dementia in Alzheimer's disease with depression (7) Impulse control disorder CHETAN VARGAS MD Oct 19, 2019 07:50
[2019-10-19 15:11] VITALS: BP 127/60
[2019-10-19] MEDS: ATORVASTATIN CALCIUM 20 MG TABLET PO SCH (19:29)
[2019-10-19] MEDS: QUEtiapine 25 MG TABLET. PO SCH (19:29)
[2019-10-19] MEDS: MAGNESIUM HYDROXIDE 2,400 MG/30 ML ORAL.SUSP. PO SCH (19:30)
[2019-10-19] MEDS: MIRTAZAPINE 15 MG TABLET PO SCH (19:30)
--- NOTE | 2019-10-19 22:12 | PDOC ---
Exam Note: Pramod Note: Please also refer to the separate dictated note~for this date of service dictated separately.~Patient seen individually. Discussed the patient with Nursing staff reviewed the chart.~Reviewed interim history and current functioning. Reviewed vital signs,~Labs/ Radiology~and current medications noted below. Continue current treatment with the changes noted in the dictated addendum note Assessment: Vital Signs/I&O: Vital Signs Date Time Temp Pulse Resp B/P (MAP) Pulse Ox O2 Delivery O2 Flow Rate FiO2 10/19/19 17:13 76 127/60 10/19/19 15:11 97.4 18 98 Room Air I & O 10/18/19 10/18/19 10/19/19 15:00 23:00 07:00 Intake Total 600 ml 660 ml Balance 600 ml 660 ml Labs: Laboratory Tests Test 10/19/19 08:10 Glucose (Fingerstick) 132 mg/dL (70-99) H Current Medications: I have reviewed the current psychotropics carefully including drug interactions. Risk benefit ratio favors no change other than as noted in my dictated progress note. Diagnosis: Problems: (1) Major neurocognitive disorder (2) Anxiety disorder (3) Dementia, vascular, with delusions (4) Dementia, vascular, with depression (5) Dementia in Alzheimer's disease with delusions (6) Dementia in Alzheimer's disease with depression (7) Impulse control disorder CHETAN VARGAS MD Oct 19, 2019 22:12
[2019-10-20 05:54] VITALS: BP 148/78
[2019-10-20] MEDS: APIXABAN 5 MG TABLET. PO SCH ×2 (07:16→20:30)
[2019-10-20] MEDS: DULoxetine HCL 30 MG CAPSULE.DR PO SCH (07:16)
[2019-10-20] MEDS: MEMANTINE 10 MG TABLET. PO SCH ×2 (07:16→20:30)
[2019-10-20] MEDS: LACTOBACILLUS RHAMNOSUS GG 1 CAPSULE. PO SCH ×2 (07:16→20:30)
[2019-10-20] MEDS: CHOLECALCIFEROL (VITAMIN D3) 1,000 UNIT TABLET PO SCH (07:16)
[2019-10-20] MEDS: DULoxetine HCL 20 MG CAPSULE.DR PO SCH (07:17)
[2019-10-20] MEDS: CARVEDILOL 12.5 MG TABLET PO SCH ×2 (07:17→17:00)
--- NOTE | 2019-10-20 07:50 | PDOC ---
Exam Note: Pramod Note: S/O: This note is a late entry for DOS 10/18/2019 covers elements not covered in my initial note. Discussed the patient with nursing staff, reviewed the chart. Also met with the patient individually in the evening on audio-visual rounds. Nursing report was with Sarahy ELLIS. He has been ambulating on his own, does not complain of any pain in his hand that he had injured. ROS: No CV, , Pulmonary, Eye system symptoms on review. MSE: Patient is verbal, pleasant, and interactive. Short-term memory deficits are evident. He has been ambulating on his own. Gait is steady. Speech is coherent. Abstraction is fair. Computation impaired. Language function intact. Mood and affect withdrawn. No psychotic symptoms, suicidal or homicidal ideation. Labs: Reviewed. Imp: Major neurocognitive disorder Alzheimer, vascular with depression. Major depressive disorder. Plan: Continue psychotropics unchanged from initial note. Assessment: Vital Signs/I&O: Vital Signs Date Time Temp Pulse Resp B/P (MAP) Pulse Ox O2 Delivery O2 Flow Rate FiO2 10/20/19 07:17 63 148/78 10/20/19 05:54 97.3 18 98 10/19/19 15:11 Room Air I & O 10/19/19 10/19/19 10/20/19 15:00 23:00 07:00 Intake Total 840 ml 600 ml Balance 840 ml 600 ml Labs: Laboratory Tests Test 10/19/19 08:10 Glucose (Fingerstick) 132 mg/dL (70-99) H Current Medications: I have reviewed the current psychotropics carefully including drug interactions. Risk benefit ratio favors no change other than as noted in my dictated progress note. Diagnosis: Problems: (1) Major neurocognitive disorder (2) Anxiety disorder (3) Dementia, vascular, with delusions (4) Dementia, vascular, with depression (5) Dementia in Alzheimer's disease with delusions (6) Dementia in Alzheimer's disease with depression (7) Impulse control disorder CHETAN VARGAS MD Oct 20, 2019 07:50
--- NOTE | 2019-10-20 08:07 | PDOC ---
Exam Note: Pramod Note: S/O: This note is a late entry for DOS 10/19/2019 covers elements not covered in my initial note. Discussed the patient with nursing staff, and reviewed the chart. Also met with the patient individually in the evening on audio-visual rounds. Nursing report was with Sarahy ELLIS. Previous evening he was irritable, sarcastic per nursing report but none of that was evident on October 18. He slept 5 hours previous night. He does not complain of any pain in his hand where he had fractured his metacarpal. ROS: No CV, , Pulmonary, Eye system symptoms on review. MSE: I met with the patient in the evening. He was pleasant, verbal, interactive. Short-term memory deficits are evident. He has been ambulating on his own. Gait is steady. No further falls have been noted. Speech is coherent. Abstraction is fair. Computation impaired. Language function intact. Mood and affect withdrawn. No psychotic symptoms, suicidal or homicidal ideation. Labs: Reviewed. Imp: Major neurocognitive disorder Alzheimer, vascular with depression. Major depressive disorder. Plan: Continue psychotropics unchanged from initial note. Assessment: Vital Signs/I&O: Vital Signs Date Time Temp Pulse Resp B/P (MAP) Pulse Ox O2 Delivery O2 Flow Rate FiO2 10/20/19 07:17 63 148/78 10/20/19 05:54 97.3 18 98 10/19/19 15:11 Room Air I & O 10/19/19 10/19/19 10/20/19 15:00 23:00 07:00 Intake Total 840 ml 600 ml Balance 840 ml 600 ml Labs: Laboratory Tests Test 10/19/19 08:10 10/20/19 08:02 Glucose (Fingerstick) 132 mg/dL (70-99) H 133 mg/dL (70-99) H Current Medications: I have reviewed the current psychotropics carefully including drug interactions. Risk benefit ratio favors no change other than as noted in my dictated progress note. Diagnosis: Problems: (1) Major neurocognitive disorder (2) Anxiety disorder (3) Dementia, vascular, with delusions (4) Dementia, vascular, with depression (5) Dementia in Alzheimer's disease with delusions (6) Dementia in Alzheimer's disease with depression (7) Impulse control disorder CHETAN VARGAS MD Oct 20, 2019 08:07
[2019-10-20 15:46] VITALS: BP 114/60
[2019-10-20] MEDS: MAGNESIUM HYDROXIDE 2,400 MG/30 ML ORAL.SUSP. PO SCH (20:29)
[2019-10-20] MEDS: ATORVASTATIN CALCIUM 20 MG TABLET PO SCH (20:29)
[2019-10-20] MEDS: QUEtiapine 25 MG TABLET. PO SCH (20:30)
[2019-10-20] MEDS: MIRTAZAPINE 15 MG TABLET PO SCH (20:30)
--- NOTE | 2019-10-20 22:11 | PDOC ---
Exam Note: Pramod Note: Please also refer to the separate dictated note~for this date of service dictated separately.~Patient seen individually. Discussed the patient with Nursing staff reviewed the chart.~Reviewed interim history and current functioning. Reviewed vital signs,~Labs/ Radiology~and current medications noted below. Continue current treatment with the changes noted in the dictated addendum note Assessment: Vital Signs/I&O: Vital Signs Date Time Temp Pulse Resp B/P (MAP) Pulse Ox O2 Delivery O2 Flow Rate FiO2 10/20/19 17:00 72 114/60 10/20/19 15:46 97.9 18 98 10/19/19 15:11 Room Air I & O 10/19/19 10/19/19 10/20/19 15:00 23:00 07:00 Intake Total 840 ml 600 ml Balance 840 ml 600 ml Labs: Laboratory Tests Test 10/20/19 08:02 Glucose (Fingerstick) 133 mg/dL (70-99) H Current Medications: I have reviewed the current psychotropics carefully including drug interactions. Risk benefit ratio favors no change other than as noted in my dictated progress note. Diagnosis: Problems: (1) Major neurocognitive disorder (2) Anxiety disorder (3) Dementia, vascular, with delusions (4) Dementia, vascular, with depression (5) Dementia in Alzheimer's disease with delusions (6) Dementia in Alzheimer's disease with depression (7) Impulse control disorder CHETAN VARGAS MD Oct 20, 2019 22:11
[2019-10-20 23:34] LABS: BILIRUBIN,URINE NEG (NEG); CLARITY,URINE CLEAR; COLOR,URINE YELLOW; GLUCOSE,URINE NEG (NEG)
[2019-10-20 23:35] LABS: BACTERIA,URINE 0 /HPF (0-FEW); NITRITE,URINE NEG (NEG); RBC,URINE 0 /HPF (0-2); SQUAMOUS EPITHELIAL CELL,UR OCC /LPF; UROBILINOGEN,URINE 0.2 mg/dL (0.2 mg/dL); WBC,URINE OCC /HPF (0-4)
[2019-10-21 05:52] VITALS: BP 133/79
[2019-10-21 07:05] LABS: BASO # 0.1 x10^3/uL (0.0-0.2); BASO % 1 % (0-3); EOS # 0.1 x10^3/uL (0.0-0.7); EOS % 2 % (0-3); HEMATOCRIT 36.4 % (39.0-53.0); HEMOGLOBIN 11.9 g/dL (13.0-17.5); LYMPH # 1.2 x10^3/uL (1.0-4.8); LYMPH % 22 % (24-48); MEAN CORPUSCULAR HEMOGLOBIN 29 pg (25-35); MEAN CORPUSCULAR HGB CONC 33 g/dL (31-37); MEAN CORPUSCULAR VOLUME 88 fL (79-100); MONO # 0.5 x10^3/uL (0.0-1.1); MONO % 10 % (0-9); NEUT # 3.6 x10^3uL (1.8-7.7); NEUT % 66 % (31-73); PLATELET COUNT 156 x10^3/uL (140-400); RED BLOOD COUNT 4.15 x10^6/uL (4.30-5.70); RED CELL DISTRIBUTION WIDTH 15.4 % (11.5-14.5); WHITE BLOOD COUNT 5.4 x10^3/uL (4.0-11.0)
[2019-10-21 07:15] LABS: ALBUMIN 2.9 g/dL (3.4-5.0); ALBUMIN/GLOBULIN RATIO 0.8 (1.0-1.7); CALCIUM 8.9 mg/dL (8.5-10.1); GFR 73.2; POTASSIUM 4.3 mmol/L (3.5-5.1); TOTAL BILIRUBIN 0.3 mg/dL (0.2-1.0); TOTAL PROTEIN 6.6 g/dL (6.4-8.2)
[2019-10-21] MEDS: DULoxetine HCL 30 MG CAPSULE.DR PO SCH (07:55)
[2019-10-21] MEDS: DULoxetine HCL 20 MG CAPSULE.DR PO SCH (07:55)
[2019-10-21] MEDS: LACTOBACILLUS RHAMNOSUS GG 1 CAPSULE. PO SCH ×2 (07:55→20:23)
[2019-10-21] MEDS: MEMANTINE 10 MG TABLET. PO SCH ×2 (07:55→20:23)
[2019-10-21] MEDS: APIXABAN 5 MG TABLET. PO SCH ×2 (07:55→20:23)
[2019-10-21] MEDS: CARVEDILOL 12.5 MG TABLET PO SCH ×2 (07:55→16:43)
[2019-10-21] MEDS: CHOLECALCIFEROL (VITAMIN D3) 1,000 UNIT TABLET PO SCH (07:56)
[2019-10-21 16:02] VITALS: BP 122/64
[2019-10-21] MEDS: ATORVASTATIN CALCIUM 20 MG TABLET PO SCH (20:23)
[2019-10-21] MEDS: MIRTAZAPINE 15 MG TABLET PO SCH (20:23)
[2019-10-21] MEDS: QUEtiapine 25 MG TABLET. PO SCH (20:23)
[2019-10-21] MEDS: MAGNESIUM HYDROXIDE 2,400 MG/30 ML ORAL.SUSP. PO SCH (20:23)
--- NOTE | 2019-10-21 22:23 | PDOC ---
Exam Note: Pramod Note: Please also refer to the separate dictated note~for this date of service dictated separately.~Patient seen individually. Discussed the patient with Nursing staff reviewed the chart.~Reviewed interim history and current functioning. Reviewed vital signs,~Labs/ Radiology~and current medications noted below. Continue current treatment with the changes noted in the dictated addendum note Assessment: Vital Signs/I&O: Vital Signs Date Time Temp Pulse Resp B/P (MAP) Pulse Ox O2 Delivery O2 Flow Rate FiO2 10/21/19 16:43 66 122/64 10/21/19 16:02 97.6 18 97 Room Air I & O 10/20/19 10/20/19 10/21/19 15:00 23:00 07:00 Intake Total 960 ml 360 ml 120 ml Balance 960 ml 360 ml 120 ml Labs: Laboratory Tests Test 10/20/19 22:30 10/21/19 06:44 10/21/19 08:01 Urine Collection Type Unknown Urine Color Yellow Urine Clarity Clear Urine pH 7.0 Urine Specific [place] 1.020 Urine Protein Neg (NEG-TRACE) Urine Glucose (UA) Neg mg/dL (NEG) Urine Ketones (Stick) Neg mg/dL (NEG) Urine Blood Neg (NEG) Urine Nitrite Neg (NEG) Urine Bilirubin Neg (NEG) Urine Urobilinogen Dipstick 0.2 mg/dL (0.2 mg/dL) Urine Leukocyte Esterase Neg (NEG) Urine RBC 0 /HPF (0-2) Urine WBC Occ /HPF (0-4) Urine Squamous Epithelial Cells Occ /LPF Urine Bacteria 0 /HPF (0-FEW) White Blood Count 5.4 x10^3/uL (4.0-11.0) Red Blood Count 4.15 x10^6/uL (4.30-5.70) L Hemoglobin 11.9 g/dL (13.0-17.5) L Hematocrit 36.4 % (39.0-53.0) L Mean Corpuscular Volume 88 fL (79-100) Mean Corpuscular Hemoglobin 29 pg (25-35) Mean Corpuscular Hemoglobin Concent 33 g/dL (31-37) Red Cell Distribution Width 15.4 % (11.5-14.5) H Platelet Count 156 x10^3/uL (140-400) Neutrophils (%) (Auto) 66 % (31-73) Lymphocytes (%) (Auto) 22 % (24-48) L Monocytes (%) (Auto) 10 % (0-9) H Eosinophils (%) (Auto) 2 % (0-3) Basophils (%) (Auto) 1 % (0-3) Neutrophils # (Auto) 3.6 x10^3uL (1.8-7.7) Lymphocytes # (Auto) 1.2 x10^3/uL (1.0-4.8) Monocytes # (Auto) 0.5 x10^3/uL (0.0-1.1) Eosinophils # (Auto) 0.1 x10^3/uL (0.0-0.7) Basophils # (Auto) 0.1 x10^3/uL (0.0-0.2) Sodium Level 140 mmol/L (136-145) Potassium Level 4.3 mmol/L (3.5-5.1) Chloride Level 104 mmol/L (98-107) Carbon Dioxide Level 29 mmol/L (21-32) Anion Gap 7 (6-14) Blood Urea Nitrogen 17 mg/dL (8-26) Creatinine 1.0 mg/dL (0.7-1.3) Estimated GFR (Cockcroft-Gault) 73.2 BUN/Creatinine Ratio 17 (6-20) Glucose Level 140 mg/dL (70-99) H Calcium Level 8.9 mg/dL (8.5-10.1) Total Bilirubin 0.3 mg/dL (0.2-1.0) Aspartate Amino Transferase (AST) 28 U/L (15-37) Alanine Aminotransferase (ALT) 33 U/L (16-63) Alkaline Phosphatase 165 U/L (46-116) H Total Protein 6.6 g/dL (6.4-8.2) Albumin 2.9 g/dL (3.4-5.0) L Albumin/Globulin Ratio 0.8 (1.0-1.7) L Glucose (Fingerstick) 125 mg/dL (70-99) H Current Medications: I have reviewed the current psychotropics carefully including drug interactions. Risk benefit ratio favors no change other than as noted in my dictated progress note. Diagnosis: Problems: (1) Major neurocognitive disorder (2) Anxiety disorder (3) Dementia, vascular, with delusions (4) Dementia, vascular, with depression (5) Dementia in Alzheimer's disease with delusions (6) Dementia in Alzheimer's disease with depression (7) Impulse control disorder CHETAN VARGAS MD Oct 21, 2019 22:23
[2019-10-22 06:14] VITALS: BP 131/65
--- NOTE | 2019-10-22 07:34 | PDOC ---
Exam Note: Pramod Note: S/O: This note is a late entry for DOS 10/20/2019 covers elements not covered in my initial note. Discussed the patient with nursing staff, and reviewed the chart. Also met with the patient individually in the evening on audio-visual rounds with Karrie ELLIS. Nursing report was with Sarahy ELLIS. He slept 5-1/2 h ours previous night. The patient has been quite appropriate on the unit. He was not complaining of any pain in his hand where he had fractured his metacarpal. ROS: No CV, , Pulmonary, Eye system symptoms on review. MSE: Patient is oriented, pleasant, verbal, and interactive. Short-term memory deficits are evident. Gait is steady. Speech is coherent. Abstraction is fair. Computation impaired. Language function intact. Mood and affect withdrawn. No psychotic symptoms, suicidal or homicidal ideation. Labs: Reviewed. Imp: Major neurocognitive disorder Alzheimer, vascular with depression. Major depressive disorder. Plan: Continue psychotropics unchanged from initial note. Assessment: Vital Signs/I&O: Vital Signs Date Time Temp Pulse Resp B/P (MAP) Pulse Ox O2 Delivery O2 Flow Rate FiO2 10/22/19 06:14 98.0 68 18 131/65 (87) 99 Room Air I & O 10/21/19 10/21/19 10/22/19 15:00 23:00 07:00 Intake Total 720 ml 360 ml Balance 720 ml 360 ml Labs: Laboratory Tests Test 10/21/19 08:01 Glucose (Fingerstick) 125 mg/dL (70-99) H Current Medications: I have reviewed the current psychotropics carefully including drug interactions. Risk benefit ratio favors no change other than as noted in my dictated progress note. Diagnosis: Problems: (1) Major neurocognitive disorder (2) Anxiety disorder (3) Dementia, vascular, with delusions (4) Dementia, vascular, with depression (5) Dementia in Alzheimer's disease with delusions (6) Dementia in Alzheimer's disease with depression (7) Impulse control disorder CHETAN VARGAS MD Oct 22, 2019 07:34
[2019-10-22] MEDS: CARVEDILOL 12.5 MG TABLET PO SCH ×2 (07:47→16:27)
[2019-10-22] MEDS: DULoxetine HCL 30 MG CAPSULE.DR PO SCH (07:47)
[2019-10-22] MEDS: APIXABAN 5 MG TABLET. PO SCH ×2 (07:48→20:08)
[2019-10-22] MEDS: LACTOBACILLUS RHAMNOSUS GG 1 CAPSULE. PO SCH ×2 (07:48→20:08)
[2019-10-22] MEDS: DULoxetine HCL 20 MG CAPSULE.DR PO SCH (07:48)
[2019-10-22] MEDS: MEMANTINE 10 MG TABLET. PO SCH ×2 (07:48→20:09)
[2019-10-22] MEDS: CHOLECALCIFEROL (VITAMIN D3) 1,000 UNIT TABLET PO SCH (07:48)
--- NOTE | 2019-10-22 07:49 | PDOC ---
Exam Note: Pramod Note: S/O: This note is a late entry for DOS 10/21/2019 covers elements not covered in my initial note. Discussed the patient with nursing staff, and reviewed the chart. Also met with the patient individually in the evening on audio-visual rounds with Karrie ELLIS. Nursing report was with Amanda ELLIS. He slept 6-3/4 hours previous night. He was quite confused. Initially refused to go to bed, slept later but during the day on 10/21/19, he was quite pleasant. He does not complain of any pain in his hand where he had fractured his metacarpal. ROS: No CV, , Pulmonary, Eye system symptoms on review. MSE: I met with the patient in the evening on audio-visual rounds. He was quite appropriate, remembered my name. Short-term memory deficits are evident. Speech is coherent. Abstraction is fair. Computation impaired. Language function intact. Mood and affect withdrawn. No psychotic symptoms, suicidal or homicidal ideation. Labs: Reviewed. Imp: Major neurocognitive disorder Alzheimer, vascular with depression. Major depressive disorder. Plan: Continue psychotropics unchanged from initial note. Assessment: Vital Signs/I&O: Vital Signs Date Time Temp Pulse Resp B/P (MAP) Pulse Ox O2 Delivery O2 Flow Rate FiO2 10/22/19 07:47 68 131/65 10/22/19 06:14 98.0 18 99 Room Air I & O 10/21/19 10/21/19 10/22/19 15:00 23:00 07:00 Intake Total 720 ml 360 ml Balance 720 ml 360 ml Labs: Laboratory Tests Test 10/21/19 08:01 Glucose (Fingerstick) 125 mg/dL (70-99) H Current Medications: I have reviewed the current psychotropics carefully including drug interactions. Risk benefit ratio favors no change other than as noted in my dictated progress note. Diagnosis: Problems: (1) Major neurocognitive disorder (2) Anxiety disorder (3) Dementia, vascular, with delusions (4) Dementia, vascular, with depression (5) Dementia in Alzheimer's disease with delusions (6) Dementia in Alzheimer's disease with depression (7) Impulse control disorder CHETAN VARGAS MD Oct 22, 2019 07:49
[2019-10-22 15:39] VITALS: BP 121/77
[2019-10-22] MEDS: ATORVASTATIN CALCIUM 20 MG TABLET PO SCH (20:08)
[2019-10-22] MEDS: MAGNESIUM HYDROXIDE 2,400 MG/30 ML ORAL.SUSP. PO SCH (20:08)
[2019-10-22] MEDS: QUEtiapine 25 MG TABLET. PO SCH (20:09)
[2019-10-22] MEDS: MIRTAZAPINE 15 MG TABLET PO SCH (20:09)
--- NOTE | 2019-10-22 21:54 | PDOC ---
Exam Note: Pramod Note: Please also refer to the separate dictated note~for this date of service dictated separately.~Patient seen individually. Discussed the patient with Nursing staff reviewed the chart.~Reviewed interim history and current functioning. Reviewed vital signs,~Labs/ Radiology~and current medications noted below. Continue current treatment with the changes noted in the dictated addendum note Assessment: Vital Signs/I&O: Vital Signs Date Time Temp Pulse Resp B/P (MAP) Pulse Ox O2 Delivery O2 Flow Rate FiO2 10/22/19 16:27 64 121/77 10/22/19 15:39 97.9 16 99 10/22/19 06:14 Room Air I & O 10/21/19 10/21/19 10/22/19 15:00 23:00 07:00 Intake Total 720 ml 360 ml Balance 720 ml 360 ml Labs: Laboratory Tests Test 10/22/19 07:54 Glucose (Fingerstick) 109 mg/dL (70-99) H Current Medications: I have reviewed the current psychotropics carefully including drug interactions. Risk benefit ratio favors no change other than as noted in my dictated progress note. Diagnosis: Problems: (1) Major neurocognitive disorder (2) Anxiety disorder (3) Dementia, vascular, with delusions (4) Dementia, vascular, with depression (5) Dementia in Alzheimer's disease with delusions (6) Dementia in Alzheimer's disease with depression (7) Impulse control disorder CHETAN VARGAS MD Oct 22, 2019 21:54
[2019-10-23 04:56] VITALS: BP 108/57
[2019-10-23] MEDS: APIXABAN 5 MG TABLET. PO SCH ×2 (07:38→20:20)
[2019-10-23] MEDS: MEMANTINE 10 MG TABLET. PO SCH ×2 (07:38→20:20)
[2019-10-23] MEDS: CARVEDILOL 12.5 MG TABLET PO SCH ×2 (07:38→16:34)
[2019-10-23] MEDS: LACTOBACILLUS RHAMNOSUS GG 1 CAPSULE. PO SCH ×2 (07:38→20:20)
[2019-10-23] MEDS: DULoxetine HCL 20 MG CAPSULE.DR PO SCH (07:38)
[2019-10-23] MEDS: CHOLECALCIFEROL (VITAMIN D3) 1,000 UNIT TABLET PO SCH (07:38)
[2019-10-23] MEDS: DULoxetine HCL 30 MG CAPSULE.DR PO SCH (07:39)
[2019-10-23 15:31] VITALS: BP 116/60
[2019-10-23] MEDS: MAGNESIUM HYDROXIDE 2,400 MG/30 ML ORAL.SUSP. PO SCH (20:19)
[2019-10-23] MEDS: ATORVASTATIN CALCIUM 20 MG TABLET PO SCH (20:19)
[2019-10-23] MEDS: MIRTAZAPINE 15 MG TABLET PO SCH (20:20)
[2019-10-23] MEDS: QUEtiapine 25 MG TABLET. PO SCH (20:20)
--- NOTE | 2019-10-23 22:39 | PDOC ---
Exam Note: Pramod Note: S/O: This note is a late entry for DOS 10/22/2019 covers elements not covered in my initial note. This is an addendum to psychiatric progress note for DOS 10/22/2019. Discussed the patient with nursing staff, reviewed the chart. The patient was seen on audio-visual rounds in the evening with Amanda ELLIS. Modesta morgan report was with Amanda ELLIS. He slept 6 hours previous night. He did well at night. Reportedly at night he was delusional. He had a telephone call from his ex- and later was telling nursing staff be needed to divorce her. However, when I questioned him about this in the evening of , he knew he had been from her for a long time and quite appropriate about this. ROS: No CV, , Pulmonary, Eye system symptoms on review. No complaints of pain in his hand MSE: I met with the patient in the evening on audio-visual rounds. He is quite pleasant, verbal interactive. Short-term memory deficits are evident. Speech is coherent. Abstraction is fair. Computation impaired. Language function intact. Mood and affect withdrawn. No psychotic symptoms, suicidal or homicidal ideation. Labs: Reviewed. Imp: Major neurocognitive disorder Alzheimer, vascular with depression. Major depressive disorder. Plan: Continue psychotropics unchanged from initial note. Assessment: Vital Signs/I&O: Vital Signs Date Time Temp Pulse Resp B/P (MAP) Pulse Ox O2 Delivery O2 Flow Rate FiO2 10/23/19 16:34 54 116/60 10/23/19 15:31 97.6 16 99 10/23/19 04:56 Room Air I & O 10/22/19 10/22/19 10/23/19 15:00 23:00 07:00 Intake Total 720 ml 600 ml Balance 720 ml 600 ml Labs: Laboratory Tests Test 10/23/19 07:42 Glucose (Fingerstick) 120 mg/dL (70-99) H Current Medications: I have reviewed the current psychotropics carefully including drug interactions. Risk benefit ratio favors no change other than as noted in my dictated progress note. Diagnosis: Problems: (1) Major neurocognitive disorder (2) Anxiety disorder (3) Dementia, vascular, with delusions (4) Dementia, vascular, with depression (5) Dementia in Alzheimer's disease with delusions (6) Dementia in Alzheimer's disease with depression (7) Impulse control disorder CHETAN VARGAS MD Oct 23, 2019 22:39
--- NOTE | 2019-10-23 22:54 | PDOC ---
Exam Note: Pramod Note: Please also refer to the separate dictated note~for this date of service dictated separately.~Patient seen individually. Discussed the patient with Nursing staff reviewed the chart.~Reviewed interim history and current functioning. Reviewed vital signs,~Labs/ Radiology~and current medications noted below. Continue current treatment with the changes noted in the dictated addendum note Assessment: Vital Signs/I&O: Vital Signs Date Time Temp Pulse Resp B/P (MAP) Pulse Ox O2 Delivery O2 Flow Rate FiO2 10/23/19 16:34 54 116/60 10/23/19 15:31 97.6 16 99 10/23/19 04:56 Room Air I & O 10/22/19 10/22/19 10/23/19 14:59 22:59 06:59 Intake Total 720 ml 600 ml Balance 720 ml 600 ml Labs: Laboratory Tests Test 10/23/19 07:42 Glucose (Fingerstick) 120 mg/dL (70-99) H Current Medications: I have reviewed the current psychotropics carefully including drug interactions. Risk benefit ratio favors no change other than as noted in my dictated progress note. Diagnosis: Problems: (1) Major neurocognitive disorder (2) Anxiety disorder (3) Dementia, vascular, with delusions (4) Dementia, vascular, with depression (5) Dementia in Alzheimer's disease with delusions (6) Dementia in Alzheimer's disease with depression (7) Impulse control disorder CHETAN VARGAS MD Oct 23, 2019 22:54
[2019-10-24 06:14] VITALS: BP 151/83
[2019-10-24] MEDS: DULoxetine HCL 20 MG CAPSULE.DR PO SCH (08:37)
[2019-10-24] MEDS: DULoxetine HCL 30 MG CAPSULE.DR PO SCH (08:38)
[2019-10-24] MEDS: MEMANTINE 10 MG TABLET. PO SCH ×2 (08:38→20:33)
[2019-10-24] MEDS: CARVEDILOL 12.5 MG TABLET PO SCH ×2 (08:38→17:07)
[2019-10-24] MEDS: LACTOBACILLUS RHAMNOSUS GG 1 CAPSULE. PO SCH ×2 (08:38→20:33)
[2019-10-24] MEDS: CHOLECALCIFEROL (VITAMIN D3) 1,000 UNIT TABLET PO SCH (08:38)
[2019-10-24] MEDS: APIXABAN 5 MG TABLET. PO SCH ×2 (08:38→20:33)
[2019-10-24 15:36] VITALS: BP 128/77
[2019-10-24] MEDS: QUEtiapine 25 MG TABLET. PO SCH (20:33)
[2019-10-24] MEDS: ATORVASTATIN CALCIUM 20 MG TABLET PO SCH (20:33)
[2019-10-24] MEDS: MAGNESIUM HYDROXIDE 2,400 MG/30 ML ORAL.SUSP. PO SCH (20:33)
[2019-10-24] MEDS: MIRTAZAPINE 15 MG TABLET PO SCH (20:33)
--- NOTE | 2019-10-24 22:17 | PDOC ---
Exam Note: Pramod Note: S/O: This note is a late entry for DOS 10/23/2019 covers elements not covered in my initial note. Discussed the patient with nursing staff, reviewed the chart. The patient was seen on audio-visual rounds in the evening with Farhad ELLIS. Nursing report was with Amanda ELLIS. He slept 8-3/4 hours previous night. He had telephone conversation with his ex- but was not delusional as before about this. He did well previous night. ROS: No CV, , Pulmonary, Eye system symptoms on review. No complaints of pain in his hand MSE: He is quite pleasant, verbal interactive. Short-term memory deficits are evident. Speech is coherent. Abstraction is fair. Computation impaired. Language function intact. Mood and affect withdrawn. No psychotic symptoms, suicidal or homicidal ideation. Labs: Reviewed. Imp: Major neurocognitive disorder Alzheimer, vascular with depression. Major depressive disorder. Plan: Continue psychotropics unchanged from initial note. Assessment: Vital Signs/I&O: Vital Signs Date Time Temp Pulse Resp B/P (MAP) Pulse Ox O2 Delivery O2 Flow Rate FiO2 10/24/19 17:07 66 128/77 10/24/19 15:36 97.8 16 99 Room Air I & O 10/23/19 10/23/19 10/24/19 15:00 23:00 07:00 Intake Total 960 ml 240 ml Balance 960 ml 240 ml Labs: Laboratory Tests Test 10/24/19 07:53 Glucose (Fingerstick) 106 mg/dL (70-99) H Current Medications: I have reviewed the current psychotropics carefully including drug interactions. Risk benefit ratio favors no change other than as noted in my dictated progress note. Diagnosis: Problems: (1) Major neurocognitive disorder (2) Anxiety disorder (3) Dementia, vascular, with delusions (4) Dementia, vascular, with depression (5) Dementia in Alzheimer's disease with delusions (6) Dementia in Alzheimer's disease with depression (7) Impulse control disorder CHETAN VARGAS MD Oct 24, 2019 22:17
--- NOTE | 2019-10-24 22:17 | PDOC ---
Exam Note: Pramod Note: Please also refer to the separate dictated note~for this date of service dictated separately.~Patient seen individually. Discussed the patient with Nursing staff reviewed the chart.~Reviewed interim history and current functioning. Reviewed vital signs,~Labs/ Radiology~and current medications noted below. Continue current treatment with the changes noted in the dictated addendum note Assessment: Vital Signs/I&O: Vital Signs Date Time Temp Pulse Resp B/P (MAP) Pulse Ox O2 Delivery O2 Flow Rate FiO2 10/24/19 17:07 66 128/77 10/24/19 15:36 97.8 16 99 Room Air I & O 10/23/19 10/23/19 10/24/19 15:00 23:00 07:00 Intake Total 960 ml 240 ml Balance 960 ml 240 ml Labs: Laboratory Tests Test 10/24/19 07:53 Glucose (Fingerstick) 106 mg/dL (70-99) H Current Medications: I have reviewed the current psychotropics carefully including drug interactions. Risk benefit ratio favors no change other than as noted in my dictated progress note. Diagnosis: Problems: (1) Major neurocognitive disorder (2) Anxiety disorder (3) Dementia, vascular, with delusions (4) Dementia, vascular, with depression (5) Dementia in Alzheimer's disease with delusions (6) Dementia in Alzheimer's disease with depression (7) Impulse control disorder CHETAN VARGAS MD Oct 24, 2019 22:17
[2019-10-25 06:20] VITALS: BP 164/90
[2019-10-25] MEDS: CHOLECALCIFEROL (VITAMIN D3) 1,000 UNIT TABLET PO SCH (08:03)
[2019-10-25] MEDS: DULoxetine HCL 20 MG CAPSULE.DR PO SCH (08:03)
[2019-10-25] MEDS: DULoxetine HCL 30 MG CAPSULE.DR PO SCH (08:03)
[2019-10-25] MEDS: LACTOBACILLUS RHAMNOSUS GG 1 CAPSULE. PO SCH ×2 (08:04→19:57)
[2019-10-25] MEDS: MEMANTINE 10 MG TABLET. PO SCH ×2 (08:04→19:58)
[2019-10-25] MEDS: APIXABAN 5 MG TABLET. PO SCH ×2 (08:04→19:58)
[2019-10-25] MEDS: CARVEDILOL 12.5 MG TABLET PO SCH ×2 (08:04→17:00)
[2019-10-25 15:56] VITALS: BP 121/68
[2019-10-25] MEDS: MIRTAZAPINE 15 MG TABLET PO SCH (19:58)
[2019-10-25] MEDS: ATORVASTATIN CALCIUM 20 MG TABLET PO SCH (19:58)
[2019-10-25] MEDS: MAGNESIUM HYDROXIDE 2,400 MG/30 ML ORAL.SUSP. PO SCH (19:58)
[2019-10-25] MEDS: QUEtiapine 25 MG TABLET. PO SCH (19:59)
--- NOTE | 2019-10-25 21:59 | PDOC ---
Exam Note: Pramod Note: Please also refer to the separate dictated note~for this date of service dictated separately.~Patient seen individually. Discussed the patient with Nursing staff reviewed the chart.~Reviewed interim history and current functioning. Reviewed vital signs,~Labs/ Radiology~and current medications noted below. Continue current treatment with the changes noted in the dictated addendum note Assessment: Vital Signs/I&O: Vital Signs Date Time Temp Pulse Resp B/P (MAP) Pulse Ox O2 Delivery O2 Flow Rate FiO2 10/25/19 17:00 69 121/68 10/25/19 15:56 98.1 18 98 10/24/19 15:36 Room Air I & O 10/24/19 10/24/19 10/25/19 15:00 23:00 07:00 Intake Total 720 ml 480 ml Balance 720 ml 480 ml Labs: Laboratory Tests Test 10/25/19 08:12 Glucose (Fingerstick) 121 mg/dL (70-99) H Current Medications: I have reviewed the current psychotropics carefully including drug interactions. Risk benefit ratio favors no change other than as noted in my dictated progress note. Diagnosis: Problems: (1) Major neurocognitive disorder (2) Anxiety disorder (3) Dementia, vascular, with delusions (4) Dementia, vascular, with depression (5) Dementia in Alzheimer's disease with delusions (6) Dementia in Alzheimer's disease with depression (7) Impulse control disorder CHETAN VARGAS MD Oct 25, 2019 21:59
[2019-10-26 05:55] VITALS: BP 121/60
[2019-10-26] MEDS: LACTOBACILLUS RHAMNOSUS GG 1 CAPSULE. PO SCH ×2 (07:24→19:49)
[2019-10-26] MEDS: CHOLECALCIFEROL (VITAMIN D3) 1,000 UNIT TABLET PO SCH (07:24)
[2019-10-26] MEDS: DULoxetine HCL 20 MG CAPSULE.DR PO SCH (07:24)
[2019-10-26] MEDS: DULoxetine HCL 30 MG CAPSULE.DR PO SCH (07:24)
[2019-10-26] MEDS: MEMANTINE 10 MG TABLET. PO SCH ×2 (07:24→19:48)
[2019-10-26] MEDS: APIXABAN 5 MG TABLET. PO SCH ×2 (07:25→19:49)
[2019-10-26] MEDS: CARVEDILOL 12.5 MG TABLET PO SCH ×2 (07:25→17:05)
--- NOTE | 2019-10-26 08:36 | PDOC ---
Exam Note: Pramod Note: S/O: This note is a late entry for DOS 10/24/2019 covers elements not covered in my initial note. Treatment team meeting was done in the morning with Dorothea Nieves, and Renate Martini along with Daria ELLIS and Yudy from [facility]. Discussed the patient with nursing staff, reviewed the chart. The patient was seen on audio-visual rounds in the evening with Farhad ELLIS. Patient is sleeping 7 hours. Appetite 80%. He has been fairly calm, cooperative. Denies any pain in his hand. I did address this at treatment team meeting, discharge plans were addressed and he will be in quarantine at the [facility] for 14 days. He talked about his time in the [employer]. Remote memory seems better than recent. ROS: No CV, , Pulmonary, Eye system symptoms on review. MSE: I met with the patient in the evening on audio-visual rounds. He is quite pleasant, verbal interactive. Short-term memory deficits are evident. Speech is coherent. Abstraction is fair. Computation impaired. Language function intact. Mood and affect withdrawn. No psychotic symptoms, suicidal or homicidal ideation. Labs: Reviewed. Imp: Major neurocognitive disorder Alzheimer, vascular with depression. Major depressive disorder. Plan: Continue psychotropics unchanged from initial note. Assessment: Vital Signs/I&O: Vital Signs Date Time Temp Pulse Resp B/P (MAP) Pulse Ox O2 Delivery O2 Flow Rate FiO2 10/26/19 07:25 68 121/60 10/26/19 05:55 97.9 16 98 10/24/19 15:36 Room Air I & O 10/25/19 10/25/19 10/26/19 15:00 23:00 07:00 Intake Total 960 ml 600 ml Balance 960 ml 600 ml Labs: Laboratory Tests Test 10/26/19 07:30 Glucose (Fingerstick) 113 mg/dL (70-99) H Current Medications: I have reviewed the current psychotropics carefully including drug interactions. Risk benefit ratio favors no change other than as noted in my dictated progress note. Diagnosis: Problems: (1) Major neurocognitive disorder (2) Anxiety disorder (3) Dementia, vascular, with delusions (4) Dementia, vascular, with depression (5) Dementia in Alzheimer's disease with delusions (6) Dementia in Alzheimer's disease with depression (7) Impulse control disorder CHETAN VARGAS MD Oct 26, 2019 08:36
--- NOTE | 2019-10-26 08:52 | PDOC ---
Exam Note: Pramod Note: S/O: This note is a late entry for DOS 10/25/2019 covers elements not covered in my initial note. Discussed the patient with nursing staff, reviewed the chart. The patient was seen on audio-visual rounds in the evening with Sarahy RN. Nursing report was with Sarahy RN. He slept 7 hours previous night. He flores s been ambulating on his own, appropriate in the hallway. ROS: No CV, , Pulmonary, Eye system symptoms on review. MSE: He is quite pleasant, verbal, interactive. Short-term memory deficits are evident. Speech is coherent. Abstraction is fair. Computation impaired. Language function intact. Mood and affect withdrawn. No psychotic symptoms, suicidal or homicidal ideation. Labs: Reviewed. Imp: Major neurocognitive disorder Alzheimer, vascular with depression. Major depressive disorder. Plan: Continue psychotropics unchanged from initial note. Assessment: Vital Signs/I&O: Vital Signs Date Time Temp Pulse Resp B/P (MAP) Pulse Ox O2 Delivery O2 Flow Rate FiO2 10/26/19 07:25 68 121/60 10/26/19 05:55 97.9 16 98 10/24/19 15:36 Room Air I & O 10/25/19 10/25/19 10/26/19 14:59 22:59 06:59 Intake Total 960 ml 600 ml Balance 960 ml 600 ml Labs: Laboratory Tests Test 10/26/19 07:30 Glucose (Fingerstick) 113 mg/dL (70-99) H Current Medications: I have reviewed the current psychotropics carefully including drug interactions. Risk benefit ratio favors no change other than as noted in my dictated progress note. Diagnosis: Problems: (1) Major neurocognitive disorder (2) Anxiety disorder (3) Dementia, vascular, with delusions (4) Dementia, vascular, with depression (5) Dementia in Alzheimer's disease with delusions (6) Dementia in Alzheimer's disease with depression (7) Impulse control disorder CHETAN VARGAS MD Oct 26, 2019 08:51
[2019-10-26 15:35] VITALS: BP 127/74
[2019-10-26] MEDS: MAGNESIUM HYDROXIDE 2,400 MG/30 ML ORAL.SUSP. PO SCH (19:48)
[2019-10-26] MEDS: ATORVASTATIN CALCIUM 20 MG TABLET PO SCH (19:48)
[2019-10-26] MEDS: MIRTAZAPINE 15 MG TABLET PO SCH (19:49)
[2019-10-26] MEDS: QUEtiapine 25 MG TABLET. PO SCH (19:49)
--- NOTE | 2019-10-26 21:59 | PDOC ---
Exam Note: Pramdo Note: Please also refer to the separate dictated note~for this date of service dictated separately.~Patient seen individually. Discussed the patient with Nursing staff reviewed the chart.~Reviewed interim history and current functioning. Reviewed vital signs,~Labs/ Radiology~and current medications noted below. Continue current treatment with the changes noted in the dictated addendum note Assessment: Vital Signs/I&O: Vital Signs Date Time Temp Pulse Resp B/P (MAP) Pulse Ox O2 Delivery O2 Flow Rate FiO2 10/26/19 17:05 79 127/74 10/26/19 15:35 98.0 18 99 10/24/19 15:36 Room Air I & O 10/25/19 10/25/19 10/26/19 15:00 23:00 07:00 Intake Total 960 ml 600 ml Balance 960 ml 600 ml Labs: Laboratory Tests Test 10/26/19 07:30 Glucose (Fingerstick) 113 mg/dL (70-99) H Current Medications: I have reviewed the current psychotropics carefully including drug interactions. Risk benefit ratio favors no change other than as noted in my dictated progress note. Diagnosis: Problems: (1) Major neurocognitive disorder (2) Anxiety disorder (3) Dementia, vascular, with delusions (4) Dementia, vascular, with depression (5) Dementia in Alzheimer's disease with delusions (6) Dementia in Alzheimer's disease with depression (7) Impulse control disorder CHETAN VARGAS MD Oct 26, 2019 21:59
[2019-10-27 05:39] VITALS: BP 103/59
[2019-10-27] MEDS: CARVEDILOL 12.5 MG TABLET PO SCH ×2 (08:00→17:00)
[2019-10-27] MEDS: DULoxetine HCL 30 MG CAPSULE.DR PO SCH (08:06)
[2019-10-27] MEDS: DULoxetine HCL 20 MG CAPSULE.DR PO SCH (08:06)
[2019-10-27] MEDS: LACTOBACILLUS RHAMNOSUS GG 1 CAPSULE. PO SCH ×2 (08:06→20:01)
[2019-10-27] MEDS: MEMANTINE 10 MG TABLET. PO SCH ×2 (08:06→20:00)
[2019-10-27] MEDS: CHOLECALCIFEROL (VITAMIN D3) 1,000 UNIT TABLET PO SCH (08:07)
[2019-10-27] MEDS: APIXABAN 5 MG TABLET. PO SCH ×2 (08:07→20:01)
[2019-10-27 15:44] VITALS: BP 122/68
[2019-10-27] MEDS: MAGNESIUM HYDROXIDE 2,400 MG/30 ML ORAL.SUSP. PO SCH (20:00)
[2019-10-27] MEDS: MIRTAZAPINE 15 MG TABLET PO SCH (20:00)
[2019-10-27] MEDS: QUEtiapine 25 MG TABLET. PO SCH (20:01)
[2019-10-27] MEDS: ATORVASTATIN CALCIUM 20 MG TABLET PO SCH (20:01)
--- NOTE | 2019-10-27 21:50 | PDOC ---
Exam Note: Pramod Note: Please also refer to the separate dictated note~for this date of service dictated separately.~Patient seen individually. Discussed the patient with Nursing staff reviewed the chart.~Reviewed interim history and current functioning. Reviewed vital signs,~Labs/ Radiology~and current medications noted below. Continue current treatment with the changes noted in the dictated addendum note Assessment: Vital Signs/I&O: Vital Signs Date Time Temp Pulse Resp B/P (MAP) Pulse Ox O2 Delivery O2 Flow Rate FiO2 10/27/19 17:00 73 122/68 10/27/19 15:44 98.1 16 98 10/24/19 15:36 Room Air I & O 10/26/19 10/26/19 10/27/19 15:00 23:00 07:00 Intake Total 520 ml 360 ml Balance 520 ml 360 ml Current Medications: I have reviewed the current psychotropics carefully including drug interactions. Risk benefit ratio favors no change other than as noted in my dictated progress note. Diagnosis: Problems: (1) Major neurocognitive disorder (2) Anxiety disorder (3) Dementia, vascular, with delusions (4) Dementia, vascular, with depression (5) Dementia in Alzheimer's disease with delusions (6) Dementia in Alzheimer's disease with depression (7) Impulse control disorder CHETAN VARGAS MD Oct 27, 2019 21:50
[2019-10-28 05:53] VITALS: BP 136/71
[2019-10-28] MEDS: MEMANTINE 10 MG TABLET. PO SCH ×2 (07:54→19:51)
[2019-10-28] MEDS: APIXABAN 5 MG TABLET. PO SCH ×2 (07:54→19:51)
[2019-10-28] MEDS: DULoxetine HCL 30 MG CAPSULE.DR PO SCH (07:54)
[2019-10-28] MEDS: CHOLECALCIFEROL (VITAMIN D3) 1,000 UNIT TABLET PO SCH (07:54)
[2019-10-28] MEDS: LACTOBACILLUS RHAMNOSUS GG 1 CAPSULE. PO SCH ×2 (07:54→19:51)
[2019-10-28] MEDS: DULoxetine HCL 20 MG CAPSULE.DR PO SCH (07:54)
[2019-10-28] MEDS: CARVEDILOL 12.5 MG TABLET PO SCH ×2 (07:55→16:51)
--- NOTE | 2019-10-28 08:43 | PDOC ---
Exam Note: Pramod Note: S/O: This note is a late entry for DOS 10/26/2019 covers elements not covered in my initial note. Discussed the patient with nursing staff, reviewed the chart. The patient was seen on audio-visual rounds in the evening with Karrie ELLIS. Nursing report was with Sarahy ELLIS. He has been pleasant, cooperative, did go outside on a bc day, fairly interactive. Gait is steady. We have reduced the daytime Seroquel which has helped reduce the unsteady gait. ROS: No CV, , Pulmonary, Eye system symptoms on review. MSE: He is pleasant, verbal, interactive. Gait is steady. Short-term memory deficits are evident. Speech is coherent. Abstraction is fair. Computation impaired. Language function intact. Mood and affect withdrawn. No psychotic symptoms, suicidal or homicidal ideation. Labs: Reviewed. Imp: Major neurocognitive disorder Alzheimer, vascular with depression. Major depressive disorder. Plan: Continue psychotropics unchanged from initial note. Assessment: Vital Signs/I&O: Vital Signs Date Time Temp Pulse Resp B/P (MAP) Pulse Ox O2 Delivery O2 Flow Rate FiO2 10/28/19 07:55 63 136/71 10/28/19 05:53 97.5 16 94 10/24/19 15:36 Room Air I & O 10/27/19 10/27/19 10/28/19 15:00 23:00 07:00 Intake Total 720 ml 540 ml Balance 720 ml 540 ml Labs: Laboratory Tests Test 10/28/19 07:37 Glucose (Fingerstick) 100 mg/dL (70-99) H Current Medications: I have reviewed the current psychotropics carefully including drug interactions. Risk benefit ratio favors no change other than as noted in my dictated progress note. Diagnosis: Problems: (1) Major neurocognitive disorder (2) Anxiety disorder (3) Dementia, vascular, with delusions (4) Dementia, vascular, with depression (5) Dementia in Alzheimer's disease with delusions (6) Dementia in Alzheimer's disease with depression (7) Impulse control disorder CHETAN VARGAS MD Oct 28, 2019 08:43
--- NOTE | 2019-10-28 08:55 | PDOC ---
Exam Note: Pramod Note: S/O: This note is a late entry for DOS 10/27/2019 covers elements not covered in my initial note. Discussed the patient with nursing staff, reviewed the chart. The patient was seen on audio-visual rounds in the evening with Sarahy RN. Nursing report was with Sarahy RN. He has been somewhat anxious in the sophia russell but redirectable. He gets more confused in the evening. ROS: No CV, , Pulmonary, Eye system symptoms on review. MSE: He is anxious but redirectable. Short-term memory deficits are evident. Speech is coherent. Abstraction is fair. Computation impaired. Language function intact. Mood and affect withdrawn. No psychotic symptoms, suicidal or homicidal ideation. Labs: Reviewed. Imp: Major neurocognitive disorder Alzheimer, vascular with depression. Major depressive disorder. Plan: Continue psychotropics unchanged from initial note. Assessment: Vital Signs/I&O: Vital Signs Date Time Temp Pulse Resp B/P (MAP) Pulse Ox O2 Delivery O2 Flow Rate FiO2 10/28/19 07:55 63 136/71 10/28/19 05:53 97.5 16 94 10/24/19 15:36 Room Air I & O 10/27/19 10/27/19 10/28/19 15:00 23:00 07:00 Intake Total 720 ml 540 ml Balance 720 ml 540 ml Labs: Laboratory Tests Test 10/28/19 07:37 Glucose (Fingerstick) 100 mg/dL (70-99) H Current Medications: I have reviewed the current psychotropics carefully including drug interactions. Risk benefit ratio favors no change other than as noted in my dictated progress note. Diagnosis: Problems: (1) Major neurocognitive disorder (2) Anxiety disorder (3) Dementia, vascular, with delusions (4) Dementia, vascular, with depression (5) Dementia in Alzheimer's disease with delusions (6) Dementia in Alzheimer's disease with depression (7) Impulse control disorder CHETAN VARGAS MD Oct 28, 2019 08:54
[2019-10-28 09:01] LABS: BASO % 1 % (0-3); EOS # 0.1 x10^3/uL (0.0-0.7); EOS % 2 % (0-3); HEMATOCRIT 36.7 % (39.0-53.0); HEMOGLOBIN 11.9 g/dL (13.0-17.5); LYMPH # 0.9 x10^3/uL (1.0-4.8); LYMPH % 18 % (24-48); MEAN CORPUSCULAR HEMOGLOBIN 29 pg (25-35); MEAN CORPUSCULAR HGB CONC 33 g/dL (31-37); MEAN CORPUSCULAR VOLUME 88 fL (79-100); MONO # 0.4 x10^3/uL (0.0-1.1); MONO % 8 % (0-9); NEUT # 3.5 x10^3uL (1.8-7.7); NEUT % 71 % (31-73); PLATELET COUNT 187 x10^3/uL (140-400); RED BLOOD COUNT 4.15 x10^6/uL (4.30-5.70); RED CELL DISTRIBUTION WIDTH 15.4 % (11.5-14.5)
[2019-10-28 09:23] LABS: ALBUMIN 2.9 g/dL (3.4-5.0); ALBUMIN/GLOBULIN RATIO 0.8 (1.0-1.7); CALCIUM 8.8 mg/dL (8.5-10.1); GFR 73.2; POTASSIUM 4.5 mmol/L (3.5-5.1); TOTAL BILIRUBIN 0.4 mg/dL (0.2-1.0); TOTAL PROTEIN 6.7 g/dL (6.4-8.2)
[2019-10-28 15:39] VITALS: BP 131/70
[2019-10-28] MEDS: QUEtiapine 25 MG TABLET. PO SCH (19:51)
[2019-10-28] MEDS: MAGNESIUM HYDROXIDE 2,400 MG/30 ML ORAL.SUSP. PO SCH (19:51)
[2019-10-28] MEDS: ATORVASTATIN CALCIUM 20 MG TABLET PO SCH (19:51)
[2019-10-28] MEDS: MIRTAZAPINE 15 MG TABLET PO SCH (19:52)
--- NOTE | 2019-10-28 22:50 | PDOC ---
Exam Note: Pramod Note: S/O: This note covers elements not covered in my initial note. Discussed the patient with nursing staff, reviewed the chart. The patient was seen on audio- visual rounds in the evening with Farhad ELLIS. Nursing report was with Farhad ELLIS. He has been pleasant and at times he isolates in his room and was playing word searches in his room much of the day. He did go out to the patio for awhile. ROS: No CV, , Pulmonary, Eye system symptoms on review. MSE: He has been pleasant and at times he isolates in his room. Short-term memory deficits are evident. Speech is coherent. Abstraction is fair. Computation impaired. Language function intact. Mood and affect withdrawn. No psychotic symptoms, suicidal or homicidal ideation. Labs: Reviewed. Imp: Major neurocognitive disorder Alzheimer, vascular with depression. Major depressive disorder. Plan: Continue psychotropics unchanged from initial note. According to the [place] Department of [employer] and Environment and CDC, the patient has to remain in the hospital for another 7 days for his quarantine due to COVID-19 exposure on the unit. Assessment: Vital Signs/I&O: Vital Signs Date Time Temp Pulse Resp B/P (MAP) Pulse Ox O2 Delivery O2 Flow Rate FiO2 10/28/19 16:51 81 131/70 10/28/19 15:39 98.1 16 97 10/24/19 15:36 Room Air I & O 10/27/19 10/27/19 10/28/19 15:00 23:00 07:00 Intake Total 720 ml 540 ml Balance 720 ml 540 ml Labs: Laboratory Tests Test 10/28/19 07:37 10/28/19 08:45 Glucose (Fingerstick) 100 mg/dL (70-99) H White Blood Count 5.0 x10^3/uL (4.0-11.0) Red Blood Count 4.15 x10^6/uL (4.30-5.70) L Hemoglobin 11.9 g/dL (13.0-17.5) L Hematocrit 36.7 % (39.0-53.0) L Mean Corpuscular Volume 88 fL (79-100) Mean Corpuscular Hemoglobin 29 pg (25-35) Mean Corpuscular Hemoglobin Concent 33 g/dL (31-37) Red Cell Distribution Width 15.4 % (11.5-14.5) H Platelet Count 187 x10^3/uL (140-400) Neutrophils (%) (Auto) 71 % (31-73) Lymphocytes (%) (Auto) 18 % (24-48) L Monocytes (%) (Auto) 8 % (0-9) Eosinophils (%) (Auto) 2 % (0-3) Basophils (%) (Auto) 1 % (0-3) Neutrophils # (Auto) 3.5 x10^3uL (1.8-7.7) Lymphocytes # (Auto) 0.9 x10^3/uL (1.0-4.8) L Monocytes # (Auto) 0.4 x10^3/uL (0.0-1.1) Eosinophils # (Auto) 0.1 x10^3/uL (0.0-0.7) Basophils # (Auto) 0.0 x10^3/uL (0.0-0.2) Sodium Level 139 mmol/L (136-145) Potassium Level 4.5 mmol/L (3.5-5.1) Chloride Level 105 mmol/L (98-107) Carbon Dioxide Level 30 mmol/L (21-32) Anion Gap 4 (6-14) L Blood Urea Nitrogen 17 mg/dL (8-26) Creatinine 1.0 mg/dL (0.7-1.3) Estimated GFR (Cockcroft-Gault) 73.2 BUN/Creatinine Ratio 17 (6-20) Glucose Level 173 mg/dL (70-99) H Calcium Level 8.8 mg/dL (8.5-10.1) Total Bilirubin 0.4 mg/dL (0.2-1.0) Aspartate Amino Transferase (AST) 21 U/L (15-37) Alanine Aminotransferase (ALT) 24 U/L (16-63) Alkaline Phosphatase 178 U/L (46-116) H Total Protein 6.7 g/dL (6.4-8.2) Albumin 2.9 g/dL (3.4-5.0) L Albumin/Globulin Ratio 0.8 (1.0-1.7) L Current Medications: I have reviewed the current psychotropics carefully including drug interactions. Risk benefit ratio favors no change other than as noted in my dictated progress note. Diagnosis: Problems: (1) Major neurocognitive disorder (2) Anxiety disorder (3) Dementia, vascular, with delusions (4) Dementia, vascular, with depression (5) Dementia in Alzheimer's disease with delusions (6) Dementia in Alzheimer's disease with depression (7) Impulse control disorder CHETAN VARGAS MD Oct 28, 2019 22:50
[2019-10-29 05:56] VITALS: BP 135/65
[2019-10-29] MEDS: CARVEDILOL 12.5 MG TABLET PO SCH ×2 (07:46→16:50)
[2019-10-29] MEDS: DULoxetine HCL 30 MG CAPSULE.DR PO SCH (07:46)
[2019-10-29] MEDS: MEMANTINE 10 MG TABLET. PO SCH ×2 (07:46→20:00)
[2019-10-29] MEDS: APIXABAN 5 MG TABLET. PO SCH ×2 (07:46→20:01)
[2019-10-29] MEDS: LACTOBACILLUS RHAMNOSUS GG 1 CAPSULE. PO SCH ×2 (07:46→20:00)
[2019-10-29] MEDS: DULoxetine HCL 20 MG CAPSULE.DR PO SCH (07:46)
[2019-10-29] MEDS: CHOLECALCIFEROL (VITAMIN D3) 1,000 UNIT TABLET PO SCH (07:47)
[2019-10-29] MEDS ORDERED: DULO20CA50 PO (12:31)
[2019-10-29] MEDS ORDERED: DULO30CA2 PO (12:31)
[2019-10-29] MEDS ORDERED: LACT1CAP21 PO (12:36)
[2019-10-29] MEDS ORDERED: OLAN5TAB7 PO (12:37)
[2019-10-29 15:36] VITALS: BP 118/62
[2019-10-29] MEDS: MAGNESIUM HYDROXIDE 2,400 MG/30 ML ORAL.SUSP. PO SCH (20:00)
[2019-10-29] MEDS: ATORVASTATIN CALCIUM 20 MG TABLET PO SCH (20:00)
[2019-10-29] MEDS: MIRTAZAPINE 15 MG TABLET PO SCH (20:01)
[2019-10-29] MEDS: QUEtiapine 25 MG TABLET. PO SCH (20:01)
--- NOTE | 2019-10-29 22:32 | PDOC ---
Exam Note: Pramod Note: S/O: This note covers elements not covered in my initial note. Discussed the patient with nursing staff, reviewed the chart. The patient was seen on audio- visual rounds in the evening with Farhad ELLIS. Nursing report was with Farhad ELLIS. He was wearing his mask, earlier forgot to wear it but redirected and put it on. ROS: No CV, , Pulmonary, Eye system symptoms on review. MSE: He has been pleasant and at times he isolates in his room. Short-term memory deficits are evident. Speech is coherent. Abstraction is fair. Computation impaired. Language function intact. Mood and affect withdrawn. No psychotic symptoms, suicidal or homicidal ideation. Labs: Reviewed. Imp: Major neurocognitive disorder Alzheimer, vascular with depression. Major depressive disorder. Plan: Continue psychotropics unchanged from initial note. Assessment: Vital Signs/I&O: Vital Signs Date Time Temp Pulse Resp B/P (MAP) Pulse Ox O2 Delivery O2 Flow Rate FiO2 10/29/19 16:50 77 118/62 10/29/19 15:36 98.1 16 98 Room Air I & O 10/28/19 10/28/19 10/29/19 14:59 22:59 06:59 Intake Total 600 ml 360 ml Balance 600 ml 360 ml Labs: Laboratory Tests Test 10/29/19 08:15 Glucose (Fingerstick) 108 mg/dL (70-99) H Current Medications: I have reviewed the current psychotropics carefully including drug interactions. Risk benefit ratio favors no change other than as noted in my dictated progress note. Diagnosis: Problems: (1) Major neurocognitive disorder (2) Anxiety disorder (3) Dementia, vascular, with delusions (4) Dementia, vascular, with depression (5) Dementia in Alzheimer's disease with delusions (6) Dementia in Alzheimer's disease with depression (7) Impulse control disorder CHETAN VARGAS MD Oct 29, 2019 22:32
[2019-10-30 06:15] VITALS: BP 117/62
[2019-10-30] MEDS: DULoxetine HCL 30 MG CAPSULE.DR PO SCH (07:47)
[2019-10-30] MEDS: LACTOBACILLUS RHAMNOSUS GG 1 CAPSULE. PO SCH ×2 (07:47→19:52)
[2019-10-30] MEDS: CARVEDILOL 12.5 MG TABLET PO SCH ×2 (07:47→17:40)
[2019-10-30] MEDS: DULoxetine HCL 20 MG CAPSULE.DR PO SCH (07:47)
[2019-10-30] MEDS: MEMANTINE 10 MG TABLET. PO SCH ×2 (07:48→19:57)
[2019-10-30] MEDS: CHOLECALCIFEROL (VITAMIN D3) 1,000 UNIT TABLET PO SCH (07:48)
[2019-10-30] MEDS: APIXABAN 5 MG TABLET. PO SCH ×2 (07:49→19:52)
[2019-10-30 15:45] VITALS: BP 117/71
[2019-10-30] MEDS: MAGNESIUM HYDROXIDE 2,400 MG/30 ML ORAL.SUSP. PO SCH (19:52)
[2019-10-30] MEDS: QUEtiapine 25 MG TABLET. PO SCH (19:52)
[2019-10-30] MEDS: ATORVASTATIN CALCIUM 20 MG TABLET PO SCH (19:52)
[2019-10-30] MEDS: MIRTAZAPINE 15 MG TABLET PO SCH (19:52)
--- NOTE | 2019-10-30 21:44 | PDOC ---
Exam Note: Pramod Note: Please also refer to the separate dictated note~for this date of service dictated separately.~Patient seen individually. Discussed the patient with Nursing staff reviewed the chart.~Reviewed interim history and current functioning. Reviewed vital signs,~Labs/ Radiology~and current medications noted below. Continue current treatment with the changes noted in the dictated addendum note Assessment: Vital Signs/I&O: Vital Signs Date Time Temp Pulse Resp B/P (MAP) Pulse Ox O2 Delivery O2 Flow Rate FiO2 10/30/19 17:40 73 117/71 10/30/19 15:45 97.9 18 99 10/29/19 15:36 Room Air I & O 10/29/19 10/29/19 10/30/19 15:00 23:00 07:00 Intake Total 600 ml 100 ml Balance 600 ml 100 ml Current Medications: I have reviewed the current psychotropics carefully including drug interactions. Risk benefit ratio favors no change other than as noted in my dictated progress note. Diagnosis: Problems: (1) Major neurocognitive disorder (2) Anxiety disorder (3) Dementia, vascular, with delusions (4) Dementia, vascular, with depression (5) Dementia in Alzheimer's disease with delusions (6) Dementia in Alzheimer's disease with depression (7) Impulse control disorder CHETAN VARGAS MD Oct 30, 2019 21:44
[2019-10-31 05:33] VITALS: BP 121/58
[2019-10-31] MEDS: DULoxetine HCL 20 MG CAPSULE.DR PO SCH (08:20)
[2019-10-31] MEDS: DULoxetine HCL 30 MG CAPSULE.DR PO SCH (08:20)
[2019-10-31] MEDS: CHOLECALCIFEROL (VITAMIN D3) 1,000 UNIT TABLET PO SCH (08:20)
[2019-10-31] MEDS: LACTOBACILLUS RHAMNOSUS GG 1 CAPSULE. PO SCH ×2 (08:20→19:50)
[2019-10-31] MEDS: CARVEDILOL 12.5 MG TABLET PO SCH ×2 (08:20→17:05)
[2019-10-31] MEDS: MEMANTINE 10 MG TABLET. PO SCH ×2 (08:21→19:51)
[2019-10-31] MEDS: APIXABAN 5 MG TABLET. PO SCH ×2 (08:21→19:51)
--- NOTE | 2019-10-31 10:26 | PDOC ---
Exam Note: Pramod Note: S/O: This note is a late entry for DOS 10/30/19 covers elements not covered in my initial note. Discussed the patient with nursing staff, reviewed the chart. The patient was seen on audio-visual rounds in the evening with Farhad ELLIS. Nursing report was with Farhad ELLIS. He slept 7-1/4 hours previous night. He forgets to use his face mask when he comes out in the hallways and we discussed this during the individual visit. ROS: No CV, , Pulmonary, Eye system symptoms on review. MSE: He has been pleasant, cooperative. Short-term memory deficits are evident. Speech is coherent. Abstraction is fair. Computation impaired. Language function intact. Mood and affect withdrawn. No psychotic symptoms, suicidal or homicidal ideation. Labs: Reviewed. Imp: Major neurocognitive disorder Alzheimer, vascular with depression. Major depressive disorder. Plan: Continue psychotropics unchanged from initial note. Assessment: Vital Signs/I&O: Vital Signs Date Time Temp Pulse Resp B/P (MAP) Pulse Ox O2 Delivery O2 Flow Rate FiO2 10/31/19 08:20 71 121/58 10/31/19 05:33 97.8 16 96 10/29/19 15:36 Room Air I & O 10/30/19 10/30/19 10/31/19 15:00 23:00 07:00 Intake Total 840 ml 480 ml Balance 840 ml 480 ml Labs: Laboratory Tests Test 10/31/19 08:37 Glucose (Fingerstick) 198 mg/dL (70-99) H Current Medications: I have reviewed the current psychotropics carefully including drug interactions. Risk benefit ratio favors no change other than as noted in my dictated progress note. Diagnosis: Problems: (1) Major neurocognitive disorder (2) Anxiety disorder (3) Dementia, vascular, with delusions (4) Dementia, vascular, with depression (5) Dementia in Alzheimer's disease with delusions (6) Dementia in Alzheimer's disease with depression (7) Impulse control disorder CHETAN VARGAS MD Oct 31, 2019 10:26
[2019-10-31 15:40] VITALS: BP 128/70
--- NOTE | 2019-10-31 16:30 | TX PLAN ---
Interdisciplinary Tx Plan Admission Information Sep 22, 2019 at 16:38 Legal Status (on Admission): Voluntary, DPOA DPOA/Guardian Name: Nicole GILLES Pro Contact (H) or [phone] (W) Other Contact Name: [facility] Verified Code Status: Full Code Allergies: Coded Allergies: No Known Drug Allergies (Unverified , 09/10/19) Estimated Length of Stay: 10 Diagnoses Primary Diagnosis: Major Neurocognitive Disorder Reasons for Admission: Suicidal ideation Problem in Patient's Words: Per pt., "My daughter made a complaint that I was unable to care for myself." "Which is untrue." "That is why I ended up here." Per pt. daughter, "They told me he was suicidal" and stating "ways he could do it". "He was going to use his belt, and they couldn't take it away from him." Problems Active Problems: Updated: Per pt. intake, SI pt. stating "thinking of ways to kill myself" whenmetal silverware removed, pt. stated you can use plastic you just have push harder. Prior Admission: Per pt. intake, pt. was SI/HI, jump off building, gun, or use his belt, wants to kill himself and daughter, paranoid people are stealing his stuff, and thinks pool is a game of life or . Inactive Problems: Pt. is compliant with medication and cooperative with cares. Pt Strengths/Limitations Ability for [place]: Poor Cognitive Functioning/Ability: Poor Communication Skills/Ability: Fair Financial Resources: Fair Insight/Judgement: Poor Intellectual Ability: Fair Physical Health: Fair Social Skills: Fair Stability in Family: Good Verbal Skills: Good Discharge Criteria Discharge Criteria: No need for close observ., Adequate arrangements @DC, Improved behavior, Improved mood/thought Preliminary Discharge Plan Preliminary DC Plan: Current Living Arrange. Special Precautions Special Precautions: Suicide Risk Fall Risk: High Initial D/C Plan Pt. will return to [facility] at the [facility]. Identified Discharge Needs: Pt. will need follow up with Psychiatrist and PCP. Safety Plan Currently Utilized Resources Currently Utilized Resources/P: Psychiatrist and PCP at the [facility]. Identified Problems/Hx/Goals Objectives/Short-Term Goals Short Term Goals: Medication Stabilization, Monitor Med Effects, No Suicidal/Viraj. ideation, Promote Coping Skill Short Term Goals in Patient's: Per pt., "I hope I can get out." "I hope I can please people..." Pt. began to speak about wanting a room where he can stay and have the freedom to come and go when he wanted to. 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 Education: Pt. graduated from high school and went on to get a "Masters of Science in Industrial Technology from [employer]." Pt. also shared the university sent him to training where he "learned how to fly." Community Follow-up Follow Up with PCP and Psychiatrist Community Provider/Family Inpu: Pt. daughter stated, "I hope, maybe, he can get stabilized and be able to return to that place." She also hopes he will be "less paranoid" and "less depressed". Treatment Plan Explained Patient/Tutorial Laboratory Supervisor had this treatment plan explained to him/her as indicated by the signature below and has been given the opportunity to ask questions and make suggestions: Date: Patient/Tutorial Laboratory Supervisor Signature: Status Update Update Pt is eating 100% of meals and sleeping on average 6.25 hours per night. Pt is calm and compliant with all cares and staff direction. Pt can be pleasantly confused but not exhibiting any SI behaviors and denying thoughts. At this time, pt [facility] plan [facility] and remain in quarantine for another 2 weeks. All scripts have been signed and returned by the psychiatrist. Pt will plan to discharge on Monday11/04/2019. RY MARAVILLA Oct 31, 2019 16:30
[2019-10-31] MEDS: ATORVASTATIN CALCIUM 20 MG TABLET PO SCH (19:50)
[2019-10-31] MEDS: MAGNESIUM HYDROXIDE 2,400 MG/30 ML ORAL.SUSP. PO SCH (19:50)
[2019-10-31] MEDS: QUEtiapine 25 MG TABLET. PO SCH (19:51)
[2019-10-31] MEDS: MIRTAZAPINE 15 MG TABLET PO SCH (19:51)
--- NOTE | 2019-10-31 22:00 | PDOC ---
Exam Note: Pramod Note: Please also refer to the separate dictated note~for this date of service dictated separately.~Patient seen individually. Discussed the patient with Nursing staff reviewed the chart.~Reviewed interim history and current functioning. Reviewed vital signs,~Labs/ Radiology~and current medications noted below. Continue current treatment with the changes noted in the dictated addendum note Assessment: Vital Signs/I&O: Vital Signs Date Time Temp Pulse Resp B/P (MAP) Pulse Ox O2 Delivery O2 Flow Rate FiO2 10/31/19 17:05 73 128/70 10/31/19 15:40 97.9 18 96 10/29/19 15:36 Room Air I & O 10/30/19 10/30/19 10/31/19 15:00 23:00 07:00 Intake Total 840 ml 480 ml Balance 840 ml 480 ml Labs: Laboratory Tests Test 10/31/19 08:37 Glucose (Fingerstick) 198 mg/dL (70-99) H Current Medications: I have reviewed the current psychotropics carefully including drug interactions. Risk benefit ratio favors no change other than as noted in my dictated progress note. Diagnosis: Problems: (1) Major neurocognitive disorder (2) Anxiety disorder (3) Dementia, vascular, with delusions (4) Dementia, vascular, with depression (5) Dementia in Alzheimer's disease with delusions (6) Dementia in Alzheimer's disease with depression (7) Impulse control disorder CHETAN VARGAS MD Oct 31, 2019 22:00
[2019-11-01 05:48] VITALS: BP 118/54
[2019-11-01 05:53] VITALS: BP 101/65
[2019-11-01] MEDS: CARVEDILOL 12.5 MG TABLET PO SCH ×2 (08:00→17:37)
[2019-11-01] MEDS: DULoxetine HCL 20 MG CAPSULE.DR PO SCH (08:10)
[2019-11-01] MEDS: DULoxetine HCL 30 MG CAPSULE.DR PO SCH (08:10)
[2019-11-01] MEDS: APIXABAN 5 MG TABLET. PO SCH ×2 (08:11→20:02)
[2019-11-01] MEDS: LACTOBACILLUS RHAMNOSUS GG 1 CAPSULE. PO SCH ×2 (08:11→20:02)
[2019-11-01] MEDS: CHOLECALCIFEROL (VITAMIN D3) 1,000 UNIT TABLET PO SCH (08:11)
[2019-11-01] MEDS: MEMANTINE 10 MG TABLET. PO SCH ×2 (08:11→20:02)
--- NOTE | 2019-11-01 09:35 | PDOC ---
Exam Note: Pramod Note: S/O: This note is a late entry for DOS 10/31/19 covers elements not covered in my initial note. Treatment team meeting was done in the morning with Renate Martini (director of social media marketing) and Beatris ELLIS. Reviewed the patients progress, disposition plans, current psychotropics, discussed potential side-effects and drug interactions. The patient was seen on audio-visual rounds in the evening due to the COVID-19 exposure on the unit with Beatris ELLIS. The patient slept 6-1/4 hours previous night. He does not complain of any discomfort in his left hand. ROS: No CV, , Pulmonary, Eye system symptoms on review. MSE: Alert and oriented to place and situation. He is very pleasant, verbal, smiling and interactive with me on audiovisual rounds. Short-term memory deficits are evident. Speech is coherent. Abstraction is fair. Computation impaired. Language function intact. Mood and affect withdrawn. No psychotic symptoms, suicidal or homicidal ideation. Labs: Reviewed. Imp: Major neurocognitive disorder Alzheimer, vascular with depression. Major depressive disorder. Plan: Continue psychotropics unchanged from initial note[facility] Assessment: Vital Signs/I&O: Vital Signs Date Time Temp Pulse Resp B/P (MAP) Pulse Ox O2 Delivery O2 Flow Rate FiO2 11/01/19 08:00 82 101/65 11/01/19 05:53 97.2 12 93 11/01/19 05:48 Room Air I & O 10/31/19 10/31/19 11/01/19 15:00 23:00 07:00 Intake Total 960 ml 480 ml Balance 960 ml 480 ml Current Medications: I have reviewed the current psychotropics carefully including drug interactions. Risk benefit ratio favors no change other than as noted in my dictated progress note. Diagnosis: Problems: (1) Major neurocognitive disorder (2) Anxiety disorder (3) Dementia, vascular, with delusions (4) Dementia, vascular, with depression (5) Dementia in Alzheimer's disease with delusions (6) Dementia in Alzheimer's disease with depression (7) Impulse control disorder CHETAN VARGAS MD Nov 01, 2019 09:35
[2019-11-01 15:41] VITALS: BP 110/61
[2019-11-01] MEDS: MAGNESIUM HYDROXIDE 2,400 MG/30 ML ORAL.SUSP. PO SCH (20:02)
[2019-11-01] MEDS: ATORVASTATIN CALCIUM 20 MG TABLET PO SCH (20:02)
[2019-11-01] MEDS: MIRTAZAPINE 15 MG TABLET PO SCH (20:03)
[2019-11-01] MEDS: QUEtiapine 25 MG TABLET. PO SCH (20:03)
--- NOTE | 2019-11-01 21:53 | PDOC ---
Exam Note: Pramod Note: Please also refer to the separate dictated note~for this date of service dictated separately.~Patient seen individually. Discussed the patient with Nursing staff reviewed the chart.~Reviewed interim history and current functioning. Reviewed vital signs,~Labs/ Radiology~and current medications noted below. Continue current treatment with the changes noted in the dictated addendum note Assessment: Vital Signs/I&O: Vital Signs Date Time Temp Pulse Resp B/P (MAP) Pulse Ox O2 Delivery O2 Flow Rate FiO2 11/01/19 17:37 72 110/61 11/01/19 15:41 97.7 18 98 11/01/19 05:48 Room Air I & O 10/31/19 10/31/19 11/01/19 15:00 23:00 07:00 Intake Total 960 ml 480 ml Balance 960 ml 480 ml Current Medications: I have reviewed the current psychotropics carefully including drug interactions. Risk benefit ratio favors no change other than as noted in my dictated progress note. Diagnosis: Problems: (1) Major neurocognitive disorder (2) Anxiety disorder (3) Dementia, vascular, with delusions (4) Dementia, vascular, with depression (5) Dementia in Alzheimer's disease with delusions (6) Dementia in Alzheimer's disease with depression (7) Impulse control disorder CHETAN VARGAS MD Nov 01, 2019 21:53
[2019-11-02 06:12] VITALS: BP 169/76
[2019-11-02] MEDS: LACTOBACILLUS RHAMNOSUS GG 1 CAPSULE. PO SCH ×2 (08:41→20:30)
[2019-11-02] MEDS: DULoxetine HCL 30 MG CAPSULE.DR PO SCH (08:41)
[2019-11-02] MEDS: CARVEDILOL 12.5 MG TABLET PO SCH ×2 (08:41→16:40)
[2019-11-02] MEDS: DULoxetine HCL 20 MG CAPSULE.DR PO SCH (08:41)
[2019-11-02] MEDS: MEMANTINE 10 MG TABLET. PO SCH ×2 (08:42→20:30)
[2019-11-02] MEDS: CHOLECALCIFEROL (VITAMIN D3) 1,000 UNIT TABLET PO SCH (08:42)
[2019-11-02] MEDS: APIXABAN 5 MG TABLET. PO SCH ×2 (08:42→20:30)
[2019-11-02 10:15] LABS: ALBUMIN 3.3 g/dL (3.4-5.0); ALBUMIN/GLOBULIN RATIO 0.9 (1.0-1.7); CALCIUM 8.9 mg/dL (8.5-10.1); CREATININE 1.1 mg/dL (0.7-1.3); GFR 65.6; POTASSIUM 4.3 mmol/L (3.5-5.1); TOTAL BILIRUBIN 0.4 mg/dL (0.2-1.0)
[2019-11-02 10:43] LABS: BASO # 0.1 x10^3/uL (0.0-0.2); BASO % 1 % (0-3); EOS # 0.1 x10^3/uL (0.0-0.7); EOS % 3 % (0-3); HEMATOCRIT 39.3 % (39.0-53.0); HEMOGLOBIN 12.8 g/dL (13.0-17.5); LYMPH # 1.2 x10^3/uL (1.0-4.8); LYMPH % 22 % (24-48); MEAN CORPUSCULAR HEMOGLOBIN 29 pg (25-35); MEAN CORPUSCULAR HGB CONC 33 g/dL (31-37); MEAN CORPUSCULAR VOLUME 89 fL (79-100); MONO # 0.5 x10^3/uL (0.0-1.1); MONO % 9 % (0-9); NEUT # 3.6 x10^3uL (1.8-7.7); NEUT % 66 % (31-73); PLATELET COUNT 190 x10^3/uL (140-400); RED CELL DISTRIBUTION WIDTH 15.5 % (11.5-14.5); WHITE BLOOD COUNT 5.4 x10^3/uL (4.0-11.0)
[2019-11-02 15:33] VITALS: BP 141/66
[2019-11-02] MEDS: ATORVASTATIN CALCIUM 20 MG TABLET PO SCH (20:30)
[2019-11-02] MEDS: MAGNESIUM HYDROXIDE 2,400 MG/30 ML ORAL.SUSP. PO SCH (20:30)
[2019-11-02] MEDS: QUEtiapine 25 MG TABLET. PO SCH (20:30)
[2019-11-02] MEDS: MIRTAZAPINE 15 MG TABLET PO SCH (20:30)
--- NOTE | 2019-11-02 22:45 | PDOC ---
Exam Note: Pramod Note: Please also refer to the separate dictated note~for this date of service dictated separately.~Patient seen individually. Discussed the patient with Nursing staff reviewed the chart.~Reviewed interim history and current functioning. Reviewed vital signs,~Labs/ Radiology~and current medications noted below. Continue current treatment with the changes noted in the dictated addendum note Assessment: Vital Signs/I&O: Vital Signs Date Time Temp Pulse Resp B/P (MAP) Pulse Ox O2 Delivery O2 Flow Rate FiO2 11/02/19 16:40 78 141/66 11/02/19 15:33 97.6 16 98 Room Air I & O 11/01/19 11/01/19 11/02/19 15:00 23:00 07:00 Intake Total 960 ml 840 ml Balance 960 ml 840 ml Labs: Laboratory Tests Test 11/02/19 07:37 11/02/19 09:42 Glucose (Fingerstick) 108 mg/dL (70-99) H White Blood Count 5.4 x10^3/uL (4.0-11.0) Red Blood Count 4.40 x10^6/uL (4.30-5.70) Hemoglobin 12.8 g/dL (13.0-17.5) L Hematocrit 39.3 % (39.0-53.0) Mean Corpuscular Volume 89 fL (79-100) Mean Corpuscular Hemoglobin 29 pg (25-35) Mean Corpuscular Hemoglobin Concent 33 g/dL (31-37) Red Cell Distribution Width 15.5 % (11.5-14.5) H Platelet Count 190 x10^3/uL (140-400) Neutrophils (%) (Auto) 66 % (31-73) Lymphocytes (%) (Auto) 22 % (24-48) L Monocytes (%) (Auto) 9 % (0-9) Eosinophils (%) (Auto) 3 % (0-3) Basophils (%) (Auto) 1 % (0-3) Neutrophils # (Auto) 3.6 x10^3uL (1.8-7.7) Lymphocytes # (Auto) 1.2 x10^3/uL (1.0-4.8) Monocytes # (Auto) 0.5 x10^3/uL (0.0-1.1) Eosinophils # (Auto) 0.1 x10^3/uL (0.0-0.7) Basophils # (Auto) 0.1 x10^3/uL (0.0-0.2) Sodium Level 140 mmol/L (136-145) Potassium Level 4.3 mmol/L (3.5-5.1) Chloride Level 104 mmol/L (98-107) Carbon Dioxide Level 29 mmol/L (21-32) Anion Gap 7 (6-14) Blood Urea Nitrogen 20 mg/dL (8-26) Creatinine 1.1 mg/dL (0.7-1.3) Estimated GFR (Cockcroft-Gault) 65.6 BUN/Creatinine Ratio 18 (6-20) Glucose Level 183 mg/dL (70-99) H Calcium Level 8.9 mg/dL (8.5-10.1) Total Bilirubin 0.4 mg/dL (0.2-1.0) Aspartate Amino Transferase (AST) 18 U/L (15-37) Alanine Aminotransferase (ALT) 20 U/L (16-63) Alkaline Phosphatase 183 U/L (46-116) H Total Protein 7.0 g/dL (6.4-8.2) Albumin 3.3 g/dL (3.4-5.0) L Albumin/Globulin Ratio 0.9 (1.0-1.7) L Current Medications: I have reviewed the current psychotropics carefully including drug interactions. Risk benefit ratio favors no change other than as noted in my dictated progress note. Diagnosis: Problems: (1) Left leg cellulitis (2) Anxiety disorder (3) Dementia, vascular, with delusions (4) Dementia, vascular, with depression (5) Dementia in Alzheimer's disease with delusions (6) Dementia in Alzheimer's disease with depression (7) Impulse control disorder (8) Major neurocognitive disorder CHETAN VARGAS MD Nov 02, 2019 22:45
--- NOTE | 2019-11-02 22:45 | PDOC ---
Exam Note: Pramod Note: S/O: This note is a late entry for DOS 11/01/2019 covers elements not covered in my initial note. The patient was seen on audio-visual rounds in the evening with Sarahy ELLIS. Discussed the patient with nursing staff reviewed the chart. Nursing report was with Beatris ELLIS. He has been talking about wanting to converse with his father. States his father runs the [employer] in [place], [place]. In fact to the best of my knowledge his father is long and the above is a reflection of the patients confusion. I did look up the internet and apparently there was a Melissa who worked at the historical [employer] which is no longer in business in [place] but the patient was unaware of this. ROS: No CV, , Pulmonary, Eye system symptoms on review. MSE: He was quite verbal, animated, appropriate interactive in the [employer], made a bird house during audio-visual rounds. Speech is coherent. Abstraction is fair. Computation impaired. Language function intact. Mood and affect withdrawn. No psychotic symptoms, suicidal or homicidal ideation. Labs: Reviewed. Imp: Major neurocognitive disorder Alzheimer, vascular with depression. Major depressive disorder. Plan: Continue psychotropics unchanged from initial note. Assessment: Vital Signs/I&O: Vital Signs Date Time Temp Pulse Resp B/P (MAP) Pulse Ox O2 Delivery O2 Flow Rate FiO2 11/02/19 16:40 78 141/66 11/02/19 15:33 97.6 16 98 Room Air I & O 11/01/19 11/01/19 11/02/19 15:00 23:00 07:00 Intake Total 960 ml 840 ml Balance 960 ml 840 ml Labs: Laboratory Tests Test 11/02/19 07:37 11/02/19 09:42 Glucose (Fingerstick) 108 mg/dL (70-99) H White Blood Count 5.4 x10^3/uL (4.0-11.0) Red Blood Count 4.40 x10^6/uL (4.30-5.70) Hemoglobin 12.8 g/dL (13.0-17.5) L Hematocrit 39.3 % (39.0-53.0) Mean Corpuscular Volume 89 fL (79-100) Mean Corpuscular Hemoglobin 29 pg (25-35) Mean Corpuscular Hemoglobin Concent 33 g/dL (31-37) Red Cell Distribution Width 15.5 % (11.5-14.5) H Platelet Count 190 x10^3/uL (140-400) Neutrophils (%) (Auto) 66 % (31-73) Lymphocytes (%) (Auto) 22 % (24-48) L Monocytes (%) (Auto) 9 % (0-9) Eosinophils (%) (Auto) 3 % (0-3) Basophils (%) (Auto) 1 % (0-3) Neutrophils # (Auto) 3.6 x10^3uL (1.8-7.7) Lymphocytes # (Auto) 1.2 x10^3/uL (1.0-4.8) Monocytes # (Auto) 0.5 x10^3/uL (0.0-1.1) Eosinophils # (Auto) 0.1 x10^3/uL (0.0-0.7) Basophils # (Auto) 0.1 x10^3/uL (0.0-0.2) Sodium Level 140 mmol/L (136-145) Potassium Level 4.3 mmol/L (3.5-5.1) Chloride Level 104 mmol/L (98-107) Carbon Dioxide Level 29 mmol/L (21-32) Anion Gap 7 (6-14) Blood Urea Nitrogen 20 mg/dL (8-26) Creatinine 1.1 mg/dL (0.7-1.3) Estimated GFR (Cockcroft-Gault) 65.6 BUN/Creatinine Ratio 18 (6-20) Glucose Level 183 mg/dL (70-99) H Calcium Level 8.9 mg/dL (8.5-10.1) Total Bilirubin 0.4 mg/dL (0.2-1.0) Aspartate Amino Transferase (AST) 18 U/L (15-37) Alanine Aminotransferase (ALT) 20 U/L (16-63) Alkaline Phosphatase 183 U/L (46-116) H Total Protein 7.0 g/dL (6.4-8.2) Albumin 3.3 g/dL (3.4-5.0) L Albumin/Globulin Ratio 0.9 (1.0-1.7) L Current Medications: I have reviewed the current psychotropics carefully including drug interactions. Risk benefit ratio favors no change other than as noted in my dictated progress note. Diagnosis: Problems: (1) Sepsis (2) Left leg cellulitis (3) Major neurocognitive disorder (4) Anxiety disorder (5) Dementia, vascular, with delusions (6) Dementia, vascular, with depression (7) Dementia in Alzheimer's disease with delusions (8) Dementia in Alzheimer's disease with depression (9) Impulse control disorder CHETAN VARGAS MD Nov 02, 2019 22:45
[2019-11-03 05:59] VITALS: BP 128/66
[2019-11-03] MEDS: APIXABAN 5 MG TABLET. PO SCH ×2 (07:32→20:13)
[2019-11-03] MEDS: CARVEDILOL 12.5 MG TABLET PO SCH ×2 (07:33→17:33)
[2019-11-03] MEDS: MEMANTINE 10 MG TABLET. PO SCH ×2 (07:33→20:13)
[2019-11-03] MEDS: LACTOBACILLUS RHAMNOSUS GG 1 CAPSULE. PO SCH ×2 (07:33→20:13)
[2019-11-03] MEDS: DULoxetine HCL 30 MG CAPSULE.DR PO SCH (07:33)
[2019-11-03] MEDS: CHOLECALCIFEROL (VITAMIN D3) 1,000 UNIT TABLET PO SCH (07:33)
[2019-11-03] MEDS: DULoxetine HCL 20 MG CAPSULE.DR PO SCH (07:33)
[2019-11-03 16:21] VITALS: BP 126/82
[2019-11-03] MEDS: MAGNESIUM HYDROXIDE 2,400 MG/30 ML ORAL.SUSP. PO SCH (20:12)
[2019-11-03] MEDS: MIRTAZAPINE 15 MG TABLET PO SCH (20:13)
[2019-11-03] MEDS: QUEtiapine 25 MG TABLET. PO SCH (20:13)
[2019-11-03] MEDS: ATORVASTATIN CALCIUM 20 MG TABLET PO SCH (20:13)
--- NOTE | 2019-11-03 22:41 | PDOC ---
Exam Note: Pramod Note: S/O: This note is a late entry for DOS 11/02/2019 covers elements not covered in my initial note. The patient was seen on audio-visual rounds in the evening with Karrie ELLIS. Discussed the patient with nursing staff reviewed the chart. Nursing report was with Karrie ELLIS. He slept 7 hours previous night. He has been pleasant, cooperative, went and sat outside in the sun for awhile in the afternoon. He remains confused, states he needs to get home to his father. He states his father owns the [employer] in [facility]. 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 Patient seems somewhat confused consistent with his memory deficits. ROS: No CV, , Pulmonary, Eye system symptoms on review. MSE: He was pleasant, oriented, smiling and oriented to himself. Speech is coherent. Abstraction is fair. Computation impaired. Language function intact. Mood and affect withdrawn. No psychotic symptoms, suicidal or homicidal ideation. Labs: Reviewed. Imp: Major neurocognitive disorder Alzheimer, vascular with depression. Major depressive disorder. Plan: Continue psychotropics unchanged from initial note. Assessment: Vital Signs/I&O: Vital Signs Date Time Temp Pulse Resp B/P (MAP) Pulse Ox O2 Delivery O2 Flow Rate FiO2 11/03/19 17:33 80 126/82 11/03/19 16:21 98.7 16 93 11/02/19 15:33 Room Air I & O 11/02/19 11/02/19 11/03/19 15:00 23:00 07:00 Intake Total 840 ml 840 ml Balance 840 ml 840 ml Labs: Laboratory Tests Test 11/03/19 07:42 Glucose (Fingerstick) 113 mg/dL (70-99) H Current Medications: I have reviewed the current psychotropics carefully including drug interactions. Risk benefit ratio favors no change other than as noted in my dictated progress note. Diagnosis: Problems: (1) Major neurocognitive disorder (2) Anxiety disorder (3) Dementia, vascular, with delusions (4) Dementia, vascular, with depression (5) Dementia in Alzheimer's disease with delusions (6) Dementia in Alzheimer's disease with depression (7) Impulse control disorder CHETAN VARGAS MD Nov 03, 2019 22:41
--- NOTE | 2019-11-03 22:42 | PDOC ---
Exam Note: Pramod Note: S/O: This note of 11/03/2019 covers elements not covered in my initial note. The patient was seen on audio-visual rounds in the evening with Diana ELLIS. Discussed the patient with nursing staff reviewed the chart. Nursing report was with Diana ELLIS. Patient remains confused but pleasant. We discussed [facility] and he was accepting of this. ROS: No CV, , Pulmonary, Eye system symptoms on review. MSE: He was quite pleasant, oriented to himself. Speech is coherent. Abstraction is fair. Computation impaired. Language function intact. Mood and affect withdrawn. No psychotic symptoms, suicidal or homicidal ideation. Labs: Reviewed. Imp: Major neurocognitive disorder Alzheimer, vascular with depression. Major depressive disorder. Plan: Continue psychotropics unchanged from initial note. We discussed his [facility] plans this coming [facility] to [facility]. Assessment: Vital Signs/I&O: Vital Signs Date Time Temp Pulse Resp B/P (MAP) Pulse Ox O2 Delivery O2 Flow Rate FiO2 11/03/19 17:33 80 126/82 11/03/19 16:21 98.7 16 93 11/02/19 15:33 Room Air I & O 11/02/19 11/02/19 11/03/19 15:00 23:00 07:00 Intake Total 840 ml 840 ml Balance 840 ml 840 ml Labs: Laboratory Tests Test 11/03/19 07:42 Glucose (Fingerstick) 113 mg/dL (70-99) H Current Medications: I have reviewed the current psychotropics carefully including drug interactions. Risk benefit ratio favors no change other than as noted in my dictated progress note. Diagnosis: Problems: (1) Major neurocognitive disorder (2) Anxiety disorder (3) Dementia, vascular, with delusions (4) Dementia, vascular, with depression (5) Dementia in Alzheimer's disease with delusions (6) Dementia in Alzheimer's disease with depression (7) Impulse control disorder CHETAN VARGAS MD Nov 03, 2019 22:42
[2019-11-04 06:14] VITALS: BP 106/61
[2019-11-04 08:53] VITALS: BP 106/61
[2019-11-04] MEDS: CARVEDILOL 12.5 MG TABLET PO SCH (08:53)
[2019-11-04] MEDS: LACTOBACILLUS RHAMNOSUS GG 1 CAPSULE. PO SCH (08:53)
[2019-11-04] MEDS: CHOLECALCIFEROL (VITAMIN D3) 1,000 UNIT TABLET PO SCH (08:54)
[2019-11-04] MEDS: APIXABAN 5 MG TABLET. PO SCH (08:54)
[2019-11-04] MEDS: DULoxetine HCL 30 MG CAPSULE.DR PO SCH (08:54)
[2019-11-04] MEDS: DULoxetine HCL 20 MG CAPSULE.DR PO SCH (08:54)
[2019-11-04] MEDS: MEMANTINE 10 MG TABLET. PO SCH (08:54)
--- NOTE | 2019-11-04 22:37 | PDOC ---
Exam Note: Pramod Note: Please also refer to the separate dictated note~for this date of service dictated separately.~Patient seen individually. Discussed the patient with Nursing staff reviewed the chart.~Reviewed interim history and current functioning. Reviewed vital signs,~Labs/ Radiology~and current medications noted below. Continue current treatment with the changes noted in the dictated addendum note Assessment: Vital Signs/I&O: Vital Signs Date Time Temp Pulse Resp B/P (MAP) Pulse Ox O2 Delivery O2 Flow Rate FiO2 11/04/19 08:53 89 106/61 11/04/19 06:14 97.8 16 96 11/02/19 15:33 Room Air I & O 11/03/19 11/03/19 11/04/19 15:00 23:00 07:00 Intake Total 480 ml 460 ml 120 ml Balance 480 ml 460 ml 120 ml Labs: Laboratory Tests Test 11/04/19 07:07 Glucose (Fingerstick) 110 mg/dL (70-99) H Current Medications: I have reviewed the current psychotropics carefully including drug interactions. Risk benefit ratio favors no change other than as noted in my dictated progress note. Diagnosis: Problems: (1) Major neurocognitive disorder (2) Anxiety disorder (3) Dementia, vascular, with delusions (4) Dementia, vascular, with depression (5) Dementia in Alzheimer's disease with delusions (6) Dementia in Alzheimer's disease with depression (7) Impulse control disorder CHETAN VARGAS MD Nov 04, 2019 22:37
--- NOTE | 2019-11-05 22:32 | DS ---
DATE OF DISCHARGE: 11/04/2019 This late entry of 11/04/2019 covers the elements not covered in my initial note. REASON FOR ADMISSION: Please refer to the admission history for details. Briefly, the patient is a 74-year-old male referred to us back from [address] [place] [address] after medical stabilization after he was initially referred to us from the [facility] with worsening symptoms of depression, confusion, suicidal ideation. He did transfer to [address] [place] [address] for medical stabilization, continued to have depression with suicidal ideation. Returned back to our unit. This hospitalization was extremely prolonged, large part due to the COVID-19 exposure on our unit with multiple staff members coming up positive in addition to other patients some of who were transferred to the ICU. Initially, the [facility] on account of worsening symptoms of depression, hopelessness, helplessness, and suicidal ideation at the prison. He was thinking about killing himself. When the metal silverware was removed from his room, the patient stated "if you can use plastic, you just have to push harder". This happened while he was in [address] [place] [address] after he was medically stabilized prompting return back to us. SIGNIFICANT FINDINGS AND CLINICAL COURSE: Following admission, the patient was seen daily individually by myself from a psychiatric standpoint, medical followup with Dr. Lester/Dr. Watson. The patient remained depressed with short-term memory deficits, confusion. Adjustments were made in his psychotropics. He seemed to respond to a combination of Cymbalta 50 mg a day, Zyprexa p.r.n., Namenda 10 mg b.i.d., Seroquel 25 mg at bedtime, Remeron 15 mg at bedtime, trazodone 50 mg at bedtime p.r.n. insomnia. REVIEW OF SYSTEMS: Prior to discharge on 11/04/2019, no CV, , pulmonary, eye system symptoms on review. MENTAL STATUS EXAM: Oriented to himself and situation. Speech is coherent, pleasant, verbal. Abstraction fair, computation impaired, language function intact, attention span short. Mood and affect improved. No active suicidal ideation at discharge. CONDITION AT DISCHARGE: Improved. FINAL DIAGNOSES: Major depressive disorder, recurrent, in partial remission; major neurocognitive disorder, Alzheimer, vascular with depression; anxiety disorder, unspecified; impulse control disorder, unspecified. Rest unchanged from admission. DISCHARGE MEDICATIONS: Please refer to the [facility]. DISCHARGE INSTRUCTIONS: Outpatient psychiatric and medical followup at the prison. Time for discharge day management greater than 30 minutes. CHETAN VARGAS MD DR: ROSALIND/renetta JOB#: [id number] / [id number]
== END 2019-11-04 10:06 | DRG 885 ==
LOC: GEROPSY 16:38
PROVIDERS: ADMIT Psychiatry & Neurology Psychiatry; ATTEND Psychiatry & Neurology Psychiatry
DX: F33.9 Major depressive disorder, recurrent, unspecified (principal); L03.115 Cellulitis of right lower limb; L03.116 Cellulitis of left lower limb; R45.851 Suicidal ideations; G30.9 Alzheimer's disease, unspecified; F01.50 Vascular dementia, unspecified severity, without behavioral disturbance, psychotic disturbance, mood disturbance, and anxiety; E11.9 Type 2 diabetes mellitus without complications; F02.80 Dementia in other diseases classified elsewhere, unspecified severity, without behavioral disturbance, psychotic disturbance, mood disturbance, and anxiety; F41.9 Anxiety disorder, unspecified; F63.9 Impulse disorder, unspecified; I10 Essential (primary) hypertension; I48.91 Unspecified atrial fibrillation; Z79.01 Long term (current) use of anticoagulants; Z79.899 Other long term (current) drug therapy; E66.9 Obesity, unspecified; Z68.28 Body mass index [BMI] 28.0-28.9, adult; R50.9 Fever, unspecified; Z20.828 Contact with and (suspected) exposure to other viral communicable diseases
CPT/HCPCS: 36415; 73130; 80048; 80053; 81001; 82947; 85025; 87635